=== PATIENT | male | born 1940 | race Caucasian/White ===

== ENCOUNTER 2017-12-15 08:25 | Emergency (ER) | payer MEDICARE, OTHER ==
[~2017-12-15] VITALS: Ht 172.7 cm; Wt 113.0 kg
[~2017-12-15 08:25] MED LIST: ACETAMIN325 MG PO; ACETAMIN500 M1 OR; ALLOPURINOL100 MG OR; ALLOPURINOL100 MG PO; AMLODIPINE10 MG PO; AMLODIPINE5 MG PO; AMMONIUM LACTATE121 EX; ANTI-DIARRHEAL2 M1 PO; ASPIRIN EC81 MG PO; ASPIRIN LOW DOS81 M2 PO; ASPIRIN81 MG OR; BABY ASPIRIN81 MG OR; BISAC-EVAC10 MG RE; BUMETANIDE1 MG PO; BUMETANIDE2 MG PO; CHILD ASA81 MG PO; COREG3.125 MG PO; COUMADIN4 MG OR; COUMADIN4 MG PO; COUMADIN5 MG PO; COUMADIN6 MG PO; COUMADIN7.5 MG PO; CRESTOR10 MG OR; CRESTOR10 MG PO; CRESTOR20 MG PO; DETROL2 MG OR; DIABETA2.5 MG OR; DILANTIN INFATA50 MG OR; DILANTIN100 MG OR; DILANTIN100 MG PO; DIOVAN HCT320 MG/25 OR; DIOVAN320 MG OR; DIOVAN320 MG PO; DIOVAN40 MG PO; DIOVAN80 MG PO; EFFEXOR XR75 MG PO; ENEMA READY-TO-1 ENE RE; ENOXAPARIN100 MG/ML SC; FLUZONE SPLT1 M1 IM; GLIPIZIDE5 MG PO; GLUCOVANC1 PO; GLYB/METFOR1 OR; GLYBURIDE2.5 MG PO; GLYBURIDE5 MG PO; HYDROCHLOROT12.5 MG PO; IMODIUM A-D2 MG PO; JANUVIA50 MG OR; JANUVIA50 MG PO; KEPPRA750 M2 PO; LASIX 40 MG TAB40 MG PO; LASIX 40 MG40 MG/TAB PO; LASIX40 MG PO; LASIX80 MG PO; LEVETIRACETA OR; LEVETIRACETAM500 MG PO; LIPITOR20 M1 PO; LIPITOR20 MG PO; LORTAB 7.5 PO; LOTREL1 CA2 OR; LOTREL1 CA2 PO; MAPAP ARTHRI650 MG PO; METFORMIN HCL1000 MG PO; METFORMIN500 MG PO; MILK OF MAG30 ML/UDC PO; NITROGLYCERIN0.4 MG SL; NITROSTAT0.4 MG SL; NORCO1 TA1 PO; NORVASC10 M1 PO; NORVASC10 MG OR; NOVOLO1 SC; NOVOLOG100 IU/1 M SL; PEPCID20 MG PO; PERCOCET 5/325M1 TAB PO; PHENERGAN25 MG/TAB PO; PHENYTOIN EX100 MG OR; PHENYTOIN EX100 MG PO; PROSTAT PO; Q-TUSSIN100 MG/5 M PO; RESTORIL15 M1 PO; ROWEEPRA750 MG PO; TRAMADOL HCL50 MG PO; TYLENOL325 MG PO; ULTRAM50 MG PO; WARFARIN2 MG PO; WARFARIN2.5 MG PO; WARFARIN4 MG PO; [UNRECOGNIZED DRUG - REMARK] PO
[2017-12-15] MEDS ORDERED: COUMADIN5 MG PO (08:52)
[2017-12-15 09:25] LABS: IMMATURE GRANULOCYTES 0.6 % (0.0-1.0); MEAN CORPUSCULAR HGB 30.6 pG CALC (26.0-32.0); MEAN CORPUSCULAR HGB CONC 32.2 g/L CALC (32.0-36.0); NEUT# 5.61 thou/uL (1.82-7.42); RED BLOOD COUNT 4.83 mill/uL (4.70-6.10); RED CELL DISTRI WIDTH 13.3 % (11.5-15.5)
[2017-12-15 09:29] LABS: HEMOGLOBIN 14.8 g/dl (14.0-18.0); MEAN CELL VOLUME 95.2 fL CALC (80.0-100.0)
[2017-12-15 09:45] LABS: ANION GAP 23 (6-22 (CALC)); BUN 18 mg/dL (8-23); BUN/CREATININE RATIO 16 (12-20 (CALC)); CHLORIDE 108 mmol/l (95-108); CREATININE 1.1 mg/dL (0.7-1.3); GFR > 60 ML/MIN (>=60 (CALC)); GFR FOR AFR.AMER. > 60 ML/MIN (>=60 (CALC)); POTASSIUM 3.7 mmol/l (3.5-5.1); SODIUM 143 mmol/l (137-146)
[2017-12-15 09:55] LABS: CARBON DIOXIDE 16 mmol/l (22-30)
[2017-12-15 10:52] LABS: PROTHROMBIN TIME 11.7 SECONDS (9.0-12.5)
[2017-12-15 11:02] VITALS: BP 144/63
[2017-12-15] MEDS ORDERED: COUMADIN7.5 MG PO (14:43)
[2017-12-15] MEDS ORDERED: FERR SULFATE325 MG PO (14:46)
[2017-12-15] MEDS ORDERED: LOSARTAN POT50 MG PO (14:47)
[2017-12-15] MEDS ORDERED: JANUVIA50 MG PO (14:49)
[2017-12-17] MEDS ORDERED: KEPPRA1000 MG PO (11:05)
== END 2017-12-15 11:22 | disposition home or self-care (01) ==
LOC: ED 08:25
PROVIDERS: Family Medicine
DX: G40.909 Epilepsy, unspecified, not intractable, without status epilepticus (principal); F03.90 Unspecified dementia, unspecified severity, without behavioral disturbance, psychotic disturbance, mood disturbance, and anxiety
CPT/HCPCS: J1953

== ENCOUNTER 2017-12-21 22:36 | Inpatient (IN) | payer MEDICARE, OTHER ==
[~2017-12-21] VITALS: Ht 172.7 cm; Wt 101.6 kg
[~2017-12-21 22:36] MED LIST changes: +FERR SULFATE325 MG PO; +KEPPRA1000 MG PO; +LOSARTAN POT50 MG PO
--- NOTE | 2017-12-21 22:36 | NUR ---
PT TO ROOM 3 BY EMS FOR KNEE PAIN S/P TRIP AND FALL.
--- NOTE | 2017-12-21 23:30 | NUR ---
XRAY DONE AT BEDSIDE, WAITING ON RESULTS.
--- NOTE | 2017-12-21 23:35 | NUR ---
PT MEDICATED WITH TORADOL FOR PAIN BY ELMER PEREZ.
--- NOTE | 2017-12-22 00:14 | NUR ---
IV STARTED AND BLOOD DRAWN, WAITING ON RESULTS.
[2017-12-22 00:33] LABS: HEMATOCRIT 48.8 % (39.0-50.0); HEMOGLOBIN 16.2 g/dl (14.0-18.0); IMMATURE GRANULOCYTES 0.4 % (0.0-1.0); MEAN CELL VOLUME 93.8 fL CALC (80.0-100.0); MEAN CORPUSCULAR HGB 31.2 pG CALC (26.0-32.0); MEAN CORPUSCULAR HGB CONC 33.2 g/L CALC (32.0-36.0); NEUT# 7.98 thou/uL (1.82-7.42); RED BLOOD COUNT 5.2 mill/uL (4.70-6.10); RED CELL DISTRI WIDTH 13.5 % (11.5-15.5)
[2017-12-22 00:49] LABS: ANION GAP 19 (6-22 (CALC)); BILIRUBIN, TOTAL 0.5 mg/dL (0.0-1.4); BUN 26 mg/dL (8-23); BUN/CREATININE RATIO 20 (12-20 (CALC)); CARBON DIOXIDE 26 mmol/l (22-30); CHLORIDE 101 mmol/l (95-108); CREATININE 1.3 mg/dL (0.7-1.3); GFR 53 ML/MIN (>=60 (CALC)); GFR FOR AFR.AMER. > 60 ML/MIN (>=60 (CALC)); POTASSIUM 4.1 mmol/l (3.5-5.1); SGOT/AST 44 u/l (19-48); SGPT/ALT 50 u/l (11-66); SODIUM 142 mmol/l (137-146)
[2017-12-22 00:50] LABS: ALBUMIN 4.6 g/dL (3.2-5.0); ALKALINE PHOSPHATASE 188 u/l (38-126); TOTAL PROTEIN 7.9 g/dL (6.3-8.2)
[2017-12-22 00:59] LABS: PROTHROMBIN TIME 23.2 SECONDS (9.0-12.5)
--- NOTE | 2017-12-22 01:09 | NUR ---
ALL LABS BACK, JUAN IS SEND OUT
--- NOTE | 2017-12-22 01:47 | NUR ---
DR GUERRA CONSULTED. KNEE IMMOBILIZER AND FOLLOW UP IN OFFICE. PT WILL STAY UNTIL AM SINCE THE [facility] WILL NOT BE ABLE TO COME UNTIL AM TO MAGNETIC PROSPECTING SUPERVISOR PT. PT CURRENTLY RESTING QUIETLY WITH LIGHTS OUT AND DOOR OPEN TO MONITOR PT.
[2017-12-22] MEDS ORDERED: LORTAB 1010 MG PO (02:00)
--- NOTE | 2017-12-22 02:30 | NUR ---
REPLACED ICE PACK TO KNEE. STILL SWOLLEN. LEG ELEVATED ON PILLOW.
--- NOTE | 2017-12-22 03:47 | NUR ---
600 CC URINE OUT IN URINAL. PT RESTING QUIETLY ON STRETCHER.
--- NOTE | 2017-12-22 05:00 | NUR ---
CHECKED ON PT STILL RESTING. ANOTHER 600 URINE OUT.
--- NOTE | 2017-12-22 06:30 | NUR ---
MICHAEL IN TO HELP APPLY POSTERIOR SPLINT TO LEFT LEG. SWELLING SLIGHTLY INCREASED BUT NOW ECCHYMOSIS IN CIRCULAR PATTERN AROUND PATELLA. DR CANDELARIO IN FORMED.
--- NOTE | 2017-12-22 06:49 | NUR ---
PT TO BE ADMITTED.
--- NOTE | 2017-12-22 07:14 | NUR ---
REPORT GIVEN TO ELMER CHILEL.
--- NOTE | 2017-12-22 07:40 | NUR ---
PATIENT RESTING WITH EYES CLOSED AWAITING ROOM ASSIGNMENT. PATIENT APPEARS IN NO APPERENT DISTRESS WILL CONTINUE TO MONITOR
--- NOTE | 2017-12-22 08:20 | NUR ---
PT ASSISTED TO SIT UP ON EDGE OF BED; AM MEAL SET UP ASSIST PROVIDED; LEFT LEG SUPPORT PROVIDED FOR BRACE, CALL HANKINS WITHIN REACH
[2017-12-22 09:30] VITALS: BP 142/79
--- NOTE | 2017-12-22 09:30 | NUR ---
PT RESTING ON STRETCHER, ALERT AND ORIENTED, STATES HE FELL IN THE BATHROOM AT THE [facility] WHERE HE RESIDES, STATES IT HAPPENED SO FAST HE ISN'T SURE "HOW IT HAPPENED" BRACE/NIELS WRAP INTACT TO LLE FROM UPPER THIGH TO ANKLE, EDEMA NOTED TO BILATERAL LE, > ON LEFT THAN RIGHT, PPPB; WEAK, SOME ECCHYMOSIS NOTED TO GREAT 2nd & 3rd TOE WITH SMALL ABRASION NOTED TO TIP OF 3rd TOE, SKIN OTHERWISE INTACT, VS STABLE; PT AFEBRILE; STATES PAIN IS TOLERABLE AND DENIES NEED FOR PAIN MEDICATION AT THIS TIME, LUNGS ARE CLEAR AND NO SHORTNESS OF BREATH OR DISTRESS NOTED, ABD SOFT AND BS ACTIVE PT STATES LAST BM YESTERDAY DENIES DIFFICULTY URINATING ADMITS TO FREQUENCY, URINAL AT BEDSIDE VOIDED 200 ML CLEAR YELLOW URINE. ORIENTED TO ROM AND UNIT, CALL HANKINS WITHIN REACH, COMFORT MEASURES PROVIDED, SAFETY MEASURES INTRODUCED, WILL CONTINUE TO MONITOR.
--- NOTE | 2017-12-22 10:40 | NUR ---
DELFINO MAYER CALLED BACK (TRIMMING ASSEMBLER ATTEMPTED TO NOTIFY HER) AWARE OF ER VISIT AND ADMISSION PLANS.
--- NOTE | 2017-12-22 10:41 | NUR ---
COFFEEE PROVIDED PER PT REQUEST, COMFORT MEASURES PROVIDED, PT CONTINUES TO DENY NEED FOR PAIN MEDICATION, ADMITS TO BEING IDDM, WILL CHECK BS, CALL HANKINS WITHIN REACH
--- NOTE | 2017-12-22 10:49 | NUR ---
ACCU CHECK 260, COMFORT MEASURES PROVIDED, WILL NOTIFY MD OF BLOOD SUGAR
--- NOTE | 2017-12-22 11:09 | NUR ---
AWARE OF ACCU CHECK, WILL COTNINUE TO MONITOR.
--- NOTE | 2017-12-22 11:56 | NUR ---
SET UP ASSIST PROVIDED FOR AFTERNOON MEAL, CALL HANKINS REMAINS WITHIN REACH
--- NOTE | 2017-12-22 12:42 | NUR ---
REPORT RECEIVED FROM CATRACHITO ANTHONY ARRIVED ON UNIT @ 1242 VIA STRETCHER AND TRANSFERRED TO BED, LEFT LEG WRAPPED IN NIELS BANDAGE, SMALL TEAR OBSERVED ON 3RD TOE OF LEFT FOOT WITH SWELLING TO FOOT. ORIENTED TO ROOM AND CALL HANKINS, WILL CONTINUE TO MONITOR, CALL HANKINS IN REACH.
[2017-12-22 12:50] VITALS: BP 173/73
[2017-12-22 17:07] VITALS: BP 143/78
[2017-12-22 19:20] VITALS: BP 136/65
--- NOTE | 2017-12-22 19:20 | NUR ---
REPORT RECIEVED; PT RESTING IN BED. PT DENIES PAIN OR DISCOMFORT. PT ENCOURAGED TO CALL FOR ASSISTANCE. SAFETY PRECAUTIONS REINFORCED. FREQUENT ROUNDS MADE. CALL LIGHT WITHIN REACH.
--- NOTE | 2017-12-22 20:20 | NUR ---
PT RESTING IN BED; PT DENIES PAIN. RESP EVEN AND UNLABORED. TELE IN PLACE. ABD SOFT; ACTIVE BOWEL SOUNDS NOTED. NIELS WRAP INTACT LEFT LEG FROM UPPER THIGH TO ANKLE; EDEMA NOTED. EDEMA GREATER IN LEFT FOOT THAN RIGHT. PEDAL PULSES PALPATED BILAT. PT ALERT AND ORIENTED. SEIZURE PRECAUTIONS IN PLACE. SAFETY PRECAUTIONS REINFORCED. PT ENCOURAGED TO CALL FOR ASSISTANCE. WILL MONITOR CLOSELY. IV LAC PATENT; FLUSHED WITHOUT DIFFICULTY. CALL LIGHT WITHIN REACH.
--- NOTE | 2017-12-23 00:15 | NUR ---
RESP EVEN AND UNLABORED; NO DISTRESS NOTED. TELE IN PLACE. LEFT LEG NIELS WRAP INTACT; PEDAL PULSE PALPATED. PT DENIES PAIN. CALL LIGHT WITHIN REACH.
[2017-12-23 01:00] VITALS: BP 152/73
--- NOTE | 2017-12-23 02:40 | NUR ---
ROUNDS MADE PT WOKE; PT STATES " IM NOT IN ANY PAIN." TELE IN PLACE. LEFT LEG NIELS WRAP INTACT. PEDAL PULSES PALPATED BILAT. SAFETY PRECAUTIONS REINFORCED. CALL LIGHT WITHIN REACH.
[2017-12-23 04:20] VITALS: BP 139/75
--- NOTE | 2017-12-23 04:35 | NUR ---
ASSESSMENT UNCHANGED. RESP EVEN AND UNLABORED; NO DISTRESS NOTED. TELE IN PLACE. CALL LIGHT WITHIN REACH.
[2017-12-23 05:23] LABS: IMMATURE GRANULOCYTES 0.2 % (0.0-1.0); MEAN CELL VOLUME 93.5 fL CALC (80.0-100.0); MEAN CORPUSCULAR HGB 30.9 pG CALC (26.0-32.0); NEUT# 5.37 thou/uL (1.82-7.42); RED BLOOD COUNT 4.34 mill/uL (4.70-6.10); RED CELL DISTRI WIDTH 13.3 % (11.5-15.5)
[2017-12-23 05:24] LABS: HEMATOCRIT 40.6 % (39.0-50.0); HEMOGLOBIN 13.4 g/dl (14.0-18.0)
[2017-12-23 05:42] LABS: INTERNATIONAL NORMALIZED RATIO 2.5 RATIO (0.7-1.3); PROTHROMBIN TIME 28.4 SECONDS (9.0-12.5)
[2017-12-23 05:48] LABS: ANION GAP 16 (6-22 (CALC)); BUN 23 mg/dL (8-23); BUN/CREATININE RATIO 20 (12-20 (CALC)); CARBON DIOXIDE 23 mmol/l (22-30); CHLORIDE 106 mmol/l (95-108); CREATININE 1.2 mg/dL (0.7-1.3); GFR 58 ML/MIN (>=60 (CALC)); GFR FOR AFR.AMER. > 60 ML/MIN (>=60 (CALC)); SODIUM 142 mmol/l (137-146)
--- NOTE | 2017-12-23 07:00 | NUR ---
SHIFT CHANGE REPORT, PT SLEEPING, BREATHING EVEN AND NON-LABORED, NO SIGN DISCOMFORT, TELE MONITOR IN PLACE, CALL HANKINS IN REACH.
--- NOTE | 2017-12-23 08:03 | NUR ---
AWAKE AND ALERT AT THIS TIME, C/O ACHING LEFT LEG/FOOT PAIN @ 5/10, WILL ADDRESS CONCERNS JACQUELINE.
[2017-12-23 08:12] VITALS: BP 128/72
[2017-12-23 09:37] LABS: INTERNATIONAL NORMALIZED RATIO 2.5 RATIO (0.7-1.3); PROTHROMBIN TIME 28.4 SECONDS (9.0-12.5)
[2017-12-23 11:00] VITALS: BP 132/79
[2017-12-23 16:00] VITALS: BP 129/74
[2017-12-23 19:15] VITALS: BP 154/75
--- NOTE | 2017-12-23 19:16 | NUR ---
REPORT RECIEVED; PT RESING IN BED, DENIES ANY COMPLAINTS OF PAIN. PT ENCOURAGED TO CALL FOR ASSISTANCE. LEFT LEG NIELS WRAP INTACT; PEDAL PULSES PALPATED BILAT. SAFETY PRECAUTIONS REINFORCED. FREQUENT ROUNDS MADE. CALL LIGHT WITHIN REACH.
--- NOTE | 2017-12-23 21:35 | NUR ---
PT WOKE FOR ASSESSMENT. PT DENIES ANY PAIN. RESP EVEN AND UNLABORED. TELE IN PLACE. ABD SOFT; ACTIVE BOWEL SOUNDS NOTED. NIELS WRAP INTACT LEFT LEG FROM UPPER THIGH TO ANKLE. EDEMA GREATER IN LEFT FOOT THAN RIGHT. PEDAL PULSES PALPATED BILAT. IV LAC PATENT; FLUSHED WITHOUT DIFFICULTY. PT REPOSITIONED FOR COMFORT. SAFETY PRECAUTIONS REINFORCED. WILL MONITOR CLOSELY. CALL LIGHT WITHIHN REACH.
--- NOTE | 2017-12-24 00:10 | NUR ---
RESP EVEN AND UNLABORED; NO DISCOMFORT NOTED. TELE IN PLACE. CALL LIGHT WITHIN REACH.
[2017-12-24 00:53] VITALS: BP 136/71
--- NOTE | 2017-12-24 02:52 | NUR ---
PT REPOSITIONED AT THIS TIME. LEFT LEG NIELS WRAP INTACT; PEDAL PULSES PALPATED BILAT. PT DENIES PAIN. TELE IN PLACE. CALL LIGHT WITHIN REACH. WILL CONTINUE TO MONITOR CLOSELY.
--- NOTE | 2017-12-24 04:01 | NUR ---
RESP EVEN AND UNLABORED; NO DISCOMFORT NOTED. ASSESSMENT UNCHANGED. TELE IN PLACE. CALL LIGHT WITHIN REACH.
[2017-12-24 04:31] VITALS: BP 121/68
[2017-12-24 04:48] LABS: HEMATOCRIT 40.5 % (39.0-50.0); HEMOGLOBIN 13.3 g/dl (14.0-18.0)
[2017-12-24 05:13] LABS: INTERNATIONAL NORMALIZED RATIO 2.7 RATIO (0.7-1.3); PROTHROMBIN TIME 30.8 SECONDS (9.0-12.5)
[2017-12-24 06:25] LABS: ANION GAP 16 (6-22 (CALC)); BUN 23 mg/dL (8-23); BUN/CREATININE RATIO 18 (12-20 (CALC)); CARBON DIOXIDE 25 mmol/l (22-30); CHLORIDE 103 mmol/l (95-108); CREATININE 1.3 mg/dL (0.7-1.3); GFR 53 ML/MIN (>=60 (CALC)); GFR FOR AFR.AMER. > 60 ML/MIN (>=60 (CALC)); MAGNESIUM 1.4 mg/dL (1.6-2.3); POTASSIUM 4.1 mmol/l (3.5-5.1); SODIUM 141 mmol/l (137-146)
--- NOTE | 2017-12-24 07:25 | NUR ---
REPORT RECEIVED FROM RAAD ASTORGA. PT SITTING UPRIGHT IN BED. SEIZURE PRECAUTIONS IN PLACE. FALL PRECAUTIONS REINFORCED. PLAN OF CARE DISCUSSED. REPORTING OF CONCERNS ENCORUAGED. PT DENIES PAIN. CALL LIGHT REVIEWED AND IN REACH. PT STATES UNDERSTANDING.
[2017-12-24 07:47] VITALS: BP 119/69
--- NOTE | 2017-12-24 09:40 | NUR ---
SPOKE WITH AYDEE IN 'S OFFICE AND GAVE INFORMATION WILL SEE IF HE WILL SEE PT THIS PM.
--- NOTE | 2017-12-24 10:52 | NUR ---
SPOKE WITH TANJA FROM DR. GUERRA'S OFFICE. ADIVISED PT IS NON-SURGICAL. KNEE IMMOBILIZER TO LEFT LEG, WBAT W/ IMMOBILIZER. F/U WITH DR. GUERRA ON DISCHARGE.
--- NOTE | 2017-12-24 12:15 | NUR ---
PT REPORTS SEVERE LEFT KNEE PAIN. MEDICATED WITH LORTAB PO. PT NOW REPORTS PAIN MUCH RELIEVED BY MEDICATION. IMMOBILIZER AT BEDSIDE FOR LEFT KNEE. PT WISHES TO WAIT FOR PHYSICAL THERAPY TO APPLY.
--- NOTE | 2017-12-24 14:18 | NUR ---
LUIS MIGUEL, PT AT BEDSIDE.
[2017-12-24 15:00] VITALS: BP 105/64
--- NOTE | 2017-12-24 15:54 | NUR ---
PT ASSISTED BACK TO BED FROM CHAIR. KNEE IMMOBILIZER IN PLACE. WALKER USED FOR ASSISTANCE. PT TOLERATED ACTIVITY WELL.
[2017-12-24] MEDS ORDERED: LORTAB 1010 MG PO (17:43)
[2017-12-24 19:20] VITALS: BP 118/62
--- NOTE | 2017-12-24 19:20 | NUR ---
REPORT RECIEVED; PT RESTING IN SEMI-FOWLERS POSITON. KNEE IMMOBILIZER IN PLACE; PEDAL PULSES PALPATED BILAT. PT DENIES PAIN OR DISCOMFORT. TELE IN PLACE. PT ENCOURAGED TO CALL FOR ASSISTANCE. FREQUENT ROUNDS MADE; WILL MONITOR CLOSELY. CALL LIGHT WITHIN REACH.
--- NOTE | 2017-12-24 21:30 | NUR ---
PT WOKE FOR ASSESSMENT. RESP EVEN AND UNLABORED. TELE IN PLACE. ABD SOFT; ACTIVE BOWEL SOUNDS NOTED. LEFT KNEE IMMOBILIZER IN PLACE. PEDAL PULSES PALPATED BILAT. EDEMA NOTED. IV LAC PATENT; FLUSHED WITHOUT DIFFICULTY. PT ENCORUAGED TO CALL FOR ASSISTANCE. SAFETY PRECAUTIONS REINFORCED. PT DENIES PAIN; PT REPOSITIONED FOR COMFORT. CALL LIGHT WITHIN REACH.
--- NOTE | 2017-12-25 00:10 | NUR ---
PT DENIES PAIN; PT WANTS KNEE IMMOBILIZER OFF FOR SLEEP. NIELS WRAP INTACT. PEDAL PULSES PALPATED BILAT. PT ENCORUAGED TO CALL FOR ASSISTANCE. SAFETY PRECAUTIONS REINFORCED. CALL LIGHT WITHIN REACH.
[2017-12-25 00:18] VITALS: BP 133/60
--- NOTE | 2017-12-25 04:15 | NUR ---
ASSESSMENT UNCHANGED. TELE IN PLACE. RESP EVEN AND UNLABORED; NO DISCOMFORT NOTED. CALL LIGHT WITHIN REACH.
[2017-12-25 05:04] LABS: HEMATOCRIT 40.9 % (39.0-50.0); HEMOGLOBIN 13.6 g/dl (14.0-18.0); MEAN CELL VOLUME 93.2 fL CALC (80.0-100.0); MEAN CORPUSCULAR HGB CONC 33.3 g/L CALC (32.0-36.0); RED BLOOD COUNT 4.39 mill/uL (4.70-6.10); RED CELL DISTRI WIDTH 13.2 % (11.5-15.5)
[2017-12-25 05:08] LABS: ANION GAP 17 (6-22 (CALC)); BUN 25 mg/dL (8-23); BUN/CREATININE RATIO 19 (12-20 (CALC)); CARBON DIOXIDE 25 mmol/l (22-30); CHLORIDE 101 mmol/l (95-108); CREATININE 1.3 mg/dL (0.7-1.3); GFR 53 ML/MIN (>=60 (CALC)); GFR FOR AFR.AMER. > 60 ML/MIN (>=60 (CALC)); SODIUM 138 mmol/l (137-146)
[2017-12-25 05:10] LABS: INTERNATIONAL NORMALIZED RATIO 2.7 RATIO (0.7-1.3); PROTHROMBIN TIME 31.1 SECONDS (9.0-12.5)
[2017-12-25 05:17] VITALS: BP 126/67
--- NOTE | 2017-12-25 07:18 | NUR ---
BEDSIDE REPORT RECEIVED FROM RAAD ASTORGA. PT SUPINE IN BED. DENIES PAIN. REPORTING OF CONCERNS ENCOURAGED. PLAN OF CARE DISCUSSED. FALL PRECAUTIONS REINFORCED. KNEE IMMOBILIZER OFF AT THIS TIME FOR COMFORT WHILE IN BED. PT REMINDED IMMOBILIZER MUST BE IN PLACE FOR OOB ACTIVITY. PT STATES UNDERSTANDING.
[2017-12-25 08:00] VITALS: BP 117/57
--- NOTE | 2017-12-25 08:52 | NUR ---
PT WAS SEEN RESTING IN THE BED. TRANSFERRED FROM SUPINE TO SHORT SITTING ON BED WITH MODIFIED INDEPENDENCE UTILIZING B UE TO PULL SELF UP. PT STOOD UP FROM SITTING WITH VERBAL CUES ON HAND PLACEMENT AND PROPER USE OF WALKER IN STANDING POSITION. PT THEN WALKED ~5 STEPS FROM BED TO RECLINER WITH ROLLING WALKER, CGA AND KNEE IMMOBILIZER. PT FOLLOWED WBAT RESTRICTION ON L LE. PT THEN SAT DOWN WITH VERBAL CUES. LEG REST WAS ELEVATED FOR PT'S COMFORT. PT HAD MINIMAL SOB AT THE END OF ACTIVITY, STATED THAT IT WAS HIS FIRST TIME TO TRANSFER FROM BED TO RECLINER WITH RW HE WAS USED TO GETTING AROUND THE HOUSE WITH A WHEELCHAIR. LEFT PT WITH CALL HANKINS BESIDE HIM. FALL PRECAUTION WAS REINFORCED. NO ADVERSE RXNS NOTED OR REPORTED AT THE END OF TX.
--- NOTE | 2017-12-25 08:55 | NUR ---
UP TO CHAIR WITH PHYSICAL THERAPY. KNEE IMMOBILIZER TO LEFT LEG AT ORDERED.
[2017-12-25 11:18] VITALS: BP 130/77
--- NOTE | 2017-12-25 12:24 | NUR ---
DR. ADLER IN TO SEE PT.
[2017-12-25 15:21] VITALS: BP 108/69
--- NOTE | 2017-12-25 16:54 | NUR ---
PT SLEEPING AT THIS TIME. CALL LIGHT WITHIN REACH.
[2017-12-25 19:10] VITALS: BP 122/69
--- NOTE | 2017-12-25 22:01 | NUR ---
PT.IS IN BED W/LIGHTS OFF AND TV ON. PT.ASSESSED, LUNG SOUNDS ARE CLEAR, REPORTS BM TODAY, ABD IS SOFT AND NON-TENDER. PT.MEDICATED ORDERS PROVIDE. DENIES ANY OTHER NEEDS AT THIS TIME. CALL LIGHT IS W/IN REACH AND PT.ENCOURAGED TO CALL IF ANY NEEDS ARISE.
[2017-12-26 00:18] VITALS: BP 124/71
--- NOTE | 2017-12-26 00:40 | NUR ---
PT.MEDICATED AND V/S ASSESSED, CALL LIGHT IS W/IN REACH AND PT.DENIES ANY OTHER NEEDS AT THIS TIME, CALL LIGHT IS W/IN REACH, TV ON LOW, LIGHTS OFF
--- NOTE | 2017-12-26 04:00 | NUR ---
PT.APPEARS TO BE SLEEPING AT THIS TIME, V/S ASSESSED AND URINAL EMPTIED OF 275 CLEAR DARK YELLOW URINE. CALL LIGHT IS W/IN REACH, PT.DENIES ANY NEEDS AT THIS TIME. ENCOURAGED TO CALL IF ANY NEEDS ARISE.
[2017-12-26 04:33] VITALS: BP 134/70
[2017-12-26 04:57] LABS: HEMATOCRIT 40.3 % (39.0-50.0); HEMOGLOBIN 13.2 g/dl (14.0-18.0)
[2017-12-26 05:15] LABS: INTERNATIONAL NORMALIZED RATIO 2.7 RATIO (0.7-1.3); PROTHROMBIN TIME 30.8 SECONDS (9.0-12.5)
[2017-12-26 05:24] LABS: ANION GAP 18 (6-22 (CALC)); BUN 29 mg/dL (8-23); BUN/CREATININE RATIO 23 (12-20 (CALC)); CARBON DIOXIDE 22 mmol/l (22-30); CHLORIDE 103 mmol/l (95-108); CREATININE 1.3 mg/dL (0.7-1.3); GFR 53 ML/MIN (>=60 (CALC)); GFR FOR AFR.AMER. > 60 ML/MIN (>=60 (CALC)); POTASSIUM 4.3 mmol/l (3.5-5.1); SODIUM 139 mmol/l (137-146)
[2017-12-26 05:33] LABS: MAGNESIUM 1.9 mg/dL (1.6-2.3)
--- NOTE | 2017-12-26 07:00 | NUR ---
RECEIVED MADY SWEENEY FROM MAGO PAYNE. RESTING IN SUPINE POSITION WATCHING TV. RESPS EVEN AND UNLABORED ON ROOM AIR, TELE MONITOR IN PLACE. IMMOBILIZER IN PLACE TO LEFT LOWER EXTREMITY. DENIES PAIN OR DISCOMFORT. PLAN OF CARE DISCUSSED. SAFETY PRECAUTIONS REINFORCED. SEIZURE PRECAUTIONS IN PLACE. BED IN LOWEST POSITION WITH WHEELS LOCKED. CALL LIGHT WITHIN REACH. ENCOURAGED PT TO CALL FOR ANY NEEDS.
[2017-12-26 08:10] VITALS: BP 131/80
--- NOTE | 2017-12-26 08:15 | NUR ---
PHYSICAL THERAPY IN WITH PT.
--- NOTE | 2017-12-26 09:49 | NUR ---
Pt seen this am for ther ex and gait training. He was cooperative with treatment. Pt splint adjusted, had slid down during the night. LLE quad set, hip IR/ER, glut sets performed with splint in place. Pt moved supine to sit with supervision, min assist to scoot. He ambulated 1x20' with RW, WBAT on L with CGA and verbal cues for gait patterned and safety. Pt reported to be too tried and did not want to walk again. Returned to bed and positioned properly with call clement and phone in place. Pt ambulated with non skid socks and belt in place.
[2017-12-26 11:00] VITALS: BP 147/67
--- NOTE | 2017-12-26 11:40 | NUR ---
MEDICATED WITH LORTAB PO C/O 04/16 LEFT KNEE PAIN.
--- NOTE | 2017-12-26 12:22 | NUR ---
IV site discontinued, cath intact. No edema , no redness, voices no discomfort.
--- NOTE | 2017-12-26 12:36 | NUR ---
Discharge instructions given. Patient verbalizes understanding of same. Discharged in stable condition via Wheelchair to *Other with *Other. All belongings sent with pt. TO [facility]
--- NOTE | 2017-12-26 13:03 | NUR ---
NURSE TO NURSE REPORT CALLED TO [facility]
== END 2017-12-26 12:35 | DRG 563 ==
LOC: ED 22:36 → ED-I 12-22 06:35 → ED 12-22 06:48 → MS2 12-22 06:49 → ED-I 12-22 06:49 → MS2 12-22 11:56
PROVIDERS: Emergency Medicine; Internal Medicine; Nurse Practitioner Family; ADMIT Internal Medicine; ATTEND Internal Medicine
DX: S82.032A Displaced transverse fracture of left patella, initial encounter for closed fracture (principal); E11.22 Type 2 diabetes mellitus with diabetic chronic kidney disease; G40.909 Epilepsy, unspecified, not intractable, without status epilepticus; N18.3 Chronic kidney disease, stage 3 (moderate); I48.2 Chronic atrial fibrillation; I12.9 Hypertensive chronic kidney disease with stage 1 through stage 4 chronic kidney disease, or unspecified chronic kidney disease; E83.42 Hypomagnesemia; S80.212A Abrasion, left knee, initial encounter; S90.112A Contusion of left great toe without damage to nail, initial encounter; S90.122A Contusion of left lesser toe(s) without damage to nail, initial encounter; I49.8 Other specified cardiac arrhythmias; W18.11XA Fall from or off toilet without subsequent striking against object, initial encounter; Y92.091 Bathroom in other non-institutional residence as the place of occurrence of the external cause; Z79.01 Long term (current) use of anticoagulants
CPT/HCPCS: J3475

== ENCOUNTER 2019-09-15 07:19 | Inpatient (IN) | payer MEDICARE, OTHER ==
[~2019-09-15] VITALS: Ht 175.3 cm; Wt 99.8 kg
[~2019-09-15 07:19] MED LIST changes: +LORTAB 1010 MG PO
--- NOTE | 2019-09-15 07:25 | NUR ---
PT TO ROOM VIA EMS
[2019-09-15] MEDS ORDERED: ROWEEPRA1000 MG PO (07:47)
[2019-09-15] MEDS ORDERED: LEVEMIR100 UNIT/M SC (07:48)
[2019-09-15] MEDS ORDERED: TRADJENTA5 MG PO (07:48)
[2019-09-15] MEDS ORDERED: TRAZODONE50 MG PO (07:49)
[2019-09-15] MEDS ORDERED: DOXYCYC MONO100 M2 PO (07:49)
[2019-09-15] MEDS ORDERED: IPRATROPIU0.5 MG/3 M IN (07:50)
[2019-09-15 07:52] LABS: HEMATOCRIT 42.2 % (39.0-50.0); HEMOGLOBIN 13.5 g/dl (14.0-18.0); IMMATURE GRANULOCYTES 0.7 % (0.0-5.0); MEAN CELL VOLUME 88.7 fL CALC (80.0-100.0); MEAN CORPUSCULAR HGB 28.4 pG CALC (26.0-32.0); NEUT# 7.46 thou/uL (1.82-7.42); RED BLOOD COUNT 4.76 mill/uL (4.70-6.10); RED CELL DISTRI WIDTH 16.2 % (11.5-15.5)
[2019-09-15] MEDS ORDERED: NOVOLOG FL100 UNIT/M SC (07:53)
[2019-09-15] MEDS ORDERED: GABAPENTIN100 MG PO (07:54)
[2019-09-15] MEDS ORDERED: PREDNISONE10 MG PO (07:56)
--- NOTE | 2019-09-15 08:08 | NUR ---
PT ALERT/ORIENTED, STATES HAS BEEN COUGHING UP GREENISH/YELLOW PHLEGM. HAS BEEN ON DOXYCLCLINE FOR LAST WEEK WITH PREDNISONE. SENT FOR EVALUATION OF TEMPERATURE AND LOW OXYGEN. TEMP WAS 102.3 AT REHAB WAS GIVEN TYLENOL AROUND 6
--- NOTE | 2019-09-15 08:34 | NUR ---
PT RESTING QUIETLY AT THIS TIME, STATES FEELS MUCH BETTER AFTER NEB TREATMENT.
[2019-09-15 08:42] LABS: D-DIMER 0.86 mg/L (0.19-0.60)
[2019-09-15 08:43] LABS: PROTHROMBIN TIME 14.7 SECONDS (9.0-12.5)
[2019-09-15 08:44] LABS: ACT PARTIAL THROMBO TIME 34.7 SECONDS (20.0-32.5); INTERNATIONAL NORMALIZED RATIO 1.4 RATIO (0.7-1.3)
[2019-09-15 09:16] LABS: BILIRUBIN, TOTAL 0.6 mg/dL (0.0-1.4); CREATININE 1.4 mg/dL (0.7-1.3); POTASSIUM 4.7 mmol/l (3.5-5.1); TOTAL PROTEIN 6.9 g/dL (6.3-8.2)
[2019-09-15 09:17] LABS: ALBUMIN 3.5 g/dL (3.2-5.0)
--- NOTE | 2019-09-15 10:08 | NUR ---
REPORT CALLED TO [facility] FOR CONTINUATION OF CARE
[2019-09-15 10:26] VITALS: BP 114/68
--- NOTE | 2019-09-15 10:28 | NUR ---
PT TAKEN TO FLOOR WITH FLU PRECAUTIONS IN PLACE AND TELEMENTRY
[2019-09-15 10:31] LABS: URINE BILIRUBIN - DIPSTICK NEGATIVE (NEGATIVE); URINE BLOOD DIPSTICK TRACE-INTACT (NEGATIVE); URINE COLOR YELLOW; URINE GLUCOSE - DIPSTICK NEGATIVE (NEGATIVE); URINE KETONE NEGATIVE (NEGATIVE); URINE LEUK ESTERASE TRACE (NEGATIVE); URINE NITRITE - DIPSTICK NEGATIVE (Negative); URINE PROTEIN - DIPSTICK TRACE mg/dL (NEG-TRACE); URINE SPECIFIC GRAVITY 1.015
--- NOTE | 2019-09-15 10:58 | NUR ---
PT HAD COME FROM ER VIA STRETCHER BY MICHAEL. PT HAD TO BE TRANSFER FROM STREHER TO BED. ASSESSMENT DONE. TELE IN PLACE. PT IS A&O X3 BUT FORGETFUL AT TIMES. PT DENIES PAIN AT THIS TIME. MEDICATED PT WITH TYLENOL FOR TEMP 100.4. LUNGS SOUND COARSE/WHEEZES. O2 AT 2L VIA NC. SAFETY PRECAUTIONS REINFORCED AND CALL LIGHT IN REACH.
--- NOTE | 2019-09-15 12:42 | NUR ---
AT BEDSIDE DISCUSSING POC WITH PATIENT.
--- NOTE | 2019-09-15 12:50 | NUR ---
REPORT RECEIVED FROM ELMER NEVILLE;PT APPEARS TO BE SLEEPING IN SEMI FOWLERS POSITION;RESPIRATIONS SHALLOW ON O2 @ 2L VIA NC;NO S/S OF DISTRESS NOTED;TELE MONITORING IN PLACE;IV ABX INFUSING WITH EASE TO RFA;ALL SAFETY PRECAUTIONS IN PLACE WITH BED IN THE LOWEST POSITION AND CALL LIGHT IN REACH;WILL CONTINUE TO MONITOR
--- NOTE | 2019-09-15 13:40 | NUR ---
Vancomycin consult Age: 79 yo Serum creatinine: 1.4 mg/dL Height: 69.0 Inches Weight (kg): 108.4 IBW (kg): 70.70 Dosing wt(kg): 108.4 Estimated Creatinine clearance (ml/min): 41.4 Vd (liters): 75.9 (factor used: 0.7 L/kg) Paras (hr-1): 0.039 Half life (hrs): 17.77 Vancomycin 1500 mg q 24 hrs with an expected Cpeak of 31 mcg/ml and an expected Ctrough of 15 mcg/ml starting at 1500. trough on 09/18/19 at 1430
[2019-09-15 15:00] VITALS: BP 140/61
--- NOTE | 2019-09-15 15:55 | NUR ---
PT RESTING IN SEMI FOWLERS POSITION;RESPIRATIONS EVEN AND UNLABORED ON O2 @ 2L VIA NC;PT DENIES ANY CURRENT PAIN OR DISCOMFORTS;IV ABX ADMINISTERED AT THIS TIME PER ORDER;TELE MONITORING IN PLACE;PT DENIES ANY ADDITIONAL NEEDS AT THIS TIME;SEIZURE,FALL AND CONTACT PRECAUTIONS REMAIN IN PLACE;ENCOURAGED TO CALL FOR ASSISTANCE IF NEEDED;CALL LIGHT IN REACH;WILL CONTINUE TO MONITOR
[2019-09-15 18:58] VITALS: BP 134/65
--- NOTE | 2019-09-15 20:18 | NUR ---
AWAKENED FOR ASSESSMENT; COMPLETED AT THIS TIME; IV SITE PATENT AND SL. TELEMETRY IN PLACE AND TEDS IN PLACE TO BLE. O2 INFUSING PER NC PER ORDER. PT. ABLE TO REPOSITION IN BED. UPDATED ON POC. REPORTS PRODUCTIVE COUGH; NONE TO INSPECT AT THIS TIME. RE-EDUCATED TRAM INSPECTOR LIGHT USE AND VERBALIZES UNDERSTANDING. ENCOURAGED TO CALL FOR ANY NEEDS. CALL LIGHT IS IN REACH. SCHED MEDS GIVEN AND SNACK PROVIDED. WILL CONTINUE TO MONITOR.
--- NOTE | 2019-09-15 22:02 | NUR ---
SCHED MED GIVEN. URINAL EMPTIED. PT. SLEEPING. CALL LIGHT IS IN REACH.
--- NOTE | 2019-09-15 23:45 | NUR ---
SCHED KATT ROMO. PT. DROWSY BUT AROUSES TO VERBAL STIMULI. DENIES NEEDS. CALL LIGHT IS IN REACH.
[2019-09-15 23:50] VITALS: BP 147/64
[2019-09-16 04:08] VITALS: BP 134/75
--- NOTE | 2019-09-16 05:20 | NUR ---
PT. RESTING IN BED WITH LABORED BREATHING. LS REMAIN COARSE. O2 INFUSING PER NC PER ORDER. SCHED MEDS GIVEN. DENIES NEEDS/PAIN. CALL LIGHT IS IN REACH.
--- NOTE | 2019-09-16 07:15 | NUR ---
REPORT RECEIVED FROM ELMER HALEY;PT APPEARS TO BE SLEEPING IN SEMI FOWLERS POSITION;NO S/S OF DISTRESS NOTED;RESPIRATIONS EVEN AND UNLABORED,SHALLOW ON O2 @ 2L VIA NC;ALL SAFETY PRECAUTIONS NOTED WITH BED IN THE LOWEST POSITION AND SEIZURE PRECAUTIONS IN PLACE;CALL LIGHT IN REACH;WILL CONTINUE TO MONITOR
--- NOTE | 2019-09-16 07:50 | NUR ---
PT RESTING IN SEMI FOWLERS POSITION,A&O X3;VS OBTAINED AND ASSESSMENT COMPLETED,BP ELEVATED 175/90 AND ALL MORNING MEDICATIONS TO BE ADMINISTERED;PT DENIES ANY CURRENT PAIN OR DISCOMFORTS,PAIN SCALE AND REPORTING EDUCATED;RESPIRATIONS SHALLOW ON O2 @ 2L VIA NC;NON-PRODUCTIVE COUGH AT TIMES;ABDOMEN DISTENDED/SOFT ON PALPATION AND ACTIVE IN ALL 4 QUADRANTS;WEAK PEDAL PULSES WITH +1 EDEMA NOTED TO BLE;#22G TO RFA FLUSHED AND PATENT,SITE APPEARS HEALTHY;SEIZURE PRECAUTIONS IN PLACE;ACCUCHECK 249, PT COVERED WITH SLIDING SCALE NOVOLOG PER ORDER;PT DENIES ANY ADDITIONAL NEEDS AT THIS TIME AND IS ENCOURAGED TO CALL FOR ASSISTANCE IF NEEDED;FALL PRECAUTIONS IN PLACE WITH CALL LIGHT IN REACH;WILL CONTINUE TO MONITOR
[2019-09-16 07:56] VITALS: BP 175/90
[2019-09-16 10:05] VITALS: BP 119/69
--- NOTE | 2019-09-16 10:10 | NUR ---
PHYSICAL THERAPY AT BEDSIDE WORKING WITH PATEINT.
[2019-09-16 10:15] VITALS: BP 119/69
--- NOTE | 2019-09-16 10:15 | NUR ---
BP RE-CHECK 119/69 HR 60.
--- NOTE | 2019-09-16 11:54 | NUR ---
PT OOB RESTING IN RECLINER;RESPIRATIONS EVEN AND UNLABORED ON O2 @ 2L VIA NC;PT DENIES ANY CURRENT PAIN OR NEEDS;TELE MONITORING IN PLACE;IV ABX HUNG AT THIS TIME;PT ENCOURAGED TO CALL FOR ASSISTANCE IF NEEDED;FALL PRECAUTIONS IN PLACE WITH CALL LIGHT IN REACH;WILL CONTINUE TO MONITOR
[2019-09-16 15:57] VITALS: BP 128/57
--- NOTE | 2019-09-16 17:45 | NUR ---
PT APPEARS TO BE SLEEPING IN SEMI FOWLERS POSITION,WAKES EASILY TO VERBAL STIMULI;RESPIRATIONS EVEN AND UNLABORED ON O2 @ 2L VIA NC;PT DENIES ANY CURRENT PAIN OR DISCOMFORTS;TELE MONITORING IN PLACE;IV ABX INFUSING TO RFA WITH EASE;ACCUCHECK 298, PT COVERED WITH SLIDING SCALE NOVOLOG PER ORDER;PT DENIES ANY ADDITIONAL NEEDS AND IS ENCOURAGED TO CALL FOR ASSISTANCE IF NEEDED;CALL LIGHT IN REACH;WILL CONTINUE TO MONITOR
[2019-09-16 18:48] VITALS: BP 125/58
--- NOTE | 2019-09-16 19:49 | NUR ---
ASSESSMENT COMPLETED. PT. WITH MOIST COUGH. ON O2 @2LITERS/MIN PER NC. ENCOURAGED TO DEEP BREATHE. CALLED RT FOR I/S; WILL EDUCATE WHEN I/S IS AVAILABLE. PO FLUIDS OFFERED. PT. CLEANED OF A SMALL BM AND INCONTINENCE OF URINE, JULISSA CARE PROVIDED. PT. PULLED UP IN BED INTO HIGH FOWLERS. CALL LIGHT IS IN REACH. WILL CONTINUE TO MONITOR.
--- NOTE | 2019-09-16 21:39 | NUR ---
INCENTIVE SPIROMETER GIVEN TO PT. AND EDUCATION GIVE. PT. GAVE RETURN DEMONSTRATION AND PULLED 1500; GOAL SET TO 2000. ENCOURAGED DEEP BREATHING. SCHED MEDS GIVEN. URINAL EMPTIED.
--- NOTE | 2019-09-16 23:35 | NUR ---
SCHEDULED KATT ROMO. DENIES NEEDS. VOICES NO CONCERNS. URINAL EMPTIED. CALL LIGHT IS IN REACH.
[2019-09-17] VITALS (7 sets, daily range): BP systolic 132–159; BP diastolic 67–77
--- NOTE | 2019-09-17 02:30 | NUR ---
RESTING IN BED WITH NO DISTRESS NOTED; DENIES NEEDS/PAIN. CALL LIGHT IS IN REACH.
--- NOTE | 2019-09-17 05:19 | NUR ---
SCHED MEDS GIVEN. DENIES NEEDS AND VOICES NO CONCERNS. URINAL EMPTIED. CALL LIGHT IS IN REACH.
[2019-09-17 05:22] LABS: INTERNATIONAL NORMALIZED RATIO 1.7 RATIO (0.7-1.3); PROTHROMBIN TIME 17.3 SECONDS (9.0-12.5)
--- NOTE | 2019-09-17 06:05 | NUR ---
IV SITE FLUSHED AND SLIGHT SWELLING NOTED,IV SITE REMOVED AND CATHETER INTACT. NEW IV STARTED TO RIGHT HAND X2 ATTEMPT. PT. TOLERATED WELL.
--- NOTE | 2019-09-17 07:10 | NUR ---
REPORT RECEIVED FROM ELMER HALEY;PT APPEARS TO BE SLEEPING IN SEMI FOWLERS POSITION;NO S/S OF DISTRESS NOTED;RESPIRATIONS EVEN AND UNLABORED ON O2 @ 2L VIA NC;SEIZURE AND FALL PRECAUTIONS IN PLACE WITH BED IN THE LOWEST POSITION AND CALL LIGHT IN REACH;WILL CONTINUE TO MONITOR
--- NOTE | 2019-09-17 07:55 | NUR ---
PT RESTING IN SEMI FOWLERS POSITION,A&O X3;VS OBTAINED AND ASSESSMENT COMPLETED;PT DENIES ANY CURRENT PAIN OR DISCOMFORTS,PAIN SCALE AND REPORTING EDUCATED;RESPIRATIONS EVEN AND UNLABORED ON O2 @ 2L VIA NC, WHEEZY/COARSE LUNG SOUNDS;PRODUCTIVE COUGH NOTED AT TIMES;ABDOMEN SOFT ON PALPATION AND ACTIVE IN ALL 4 QUADRANTS;WEAK PEDAL PULSES;TELE MONITORING IN PLACE;#22G TO RIGHT HAND FLUSHED AND PATENT,SITE APPEARS HEALTHY;ACCUCHECK 296, PT COVERED WITH SLIDING SCALE NOVOLOG PER ORDER;PT DENIES ANY ADDITIONAL NEEDS AT THIS TIME AND IS ENCOURAGED TO CALL FOR ASSISTANCE IF NEEDED;FALL,SEIZURE AND DROPLET PRECAUTIONS IN PLACE;CALL LIGHT IN REACH;WILL CONTINUE TO MONITOR
--- NOTE | 2019-09-17 11:41 | NUR ---
PT WAS SEEN FOR FA. MODIFIED INDEP ON SUPINE<>SIT WITH VCS. STS X 10 REPS WITH CGA. ATTEMPTED TO PERFORM MARCHES IN PLACE BUT HE WAS UNABLE TO. HE THEN PERFORMED THEREX SUCH AROM OF B UE AND LE AND SAQ BILATERALLY. PT STATES HE HAS BEEN CHAIRFAST FOR A LONG TIME, HOWEVER, HIS LE ROM AND STRENGTH IS INDICATIVE THAT HE CAN BE RETRAINED TO BE ABLE TO AMBULATE AGAIN AT LEAST ON BEDSIDE OR BED<>BATHROOM WITH RW. [facility] SCORE TODAY:14 POINTS PT WILL BENEFIT FROM IRF FOR FUNCTIONAL AND GAIT TRAINING
--- NOTE | 2019-09-17 11:55 | NUR ---
PT RESTING IN SEMI FOWLERS POSITION;RESPIRATIONS EVEN AND UNLABORED,SHALLOW ON O2 @ 2L VIA NC;PT DENIES ANY CURRENT PAIN OR DISCOMFORTS;TELE MONITORING IN PLACE;IV ABX HUNG AT THIS TIME;PT DENIES ANY ADDITIONAL NEEDS AND IS ENCOURAGED TO CALL FOR ASSISTANCE IF NEEDED;CALL LIGHT IN REACH;WILL CONTINUE TO MONITOR
--- NOTE | 2019-09-17 15:00 | NUR ---
PT APPEARS TO BE SLEEPING IN SEMI FOWLERS POSITION;RESPIRATIONS EVEN AND UNLABORED ON O2 @ 2L VIA NC;NO S/S OF DISTRESS NOTED;ASSESSMENT REMAINS UNCHANGED AT THIS TIME;ALL SAFETY PRECAUTIONS IN PLACE WITH BED IN THE LOWEST POSITION AND CALL LIGHT IN REACH;WILL CONTINUE TO MONITOR
--- NOTE | 2019-09-17 19:05 | NUR ---
REPORT FROM [place] SHANKAR. PT SITTING UP IN BED. ALERT AND ORIENTED. NO APPARENT DISTRESS NOTED. SEIZURE PRECAUTIONS. PT REMAINS ON DROPLET PRECAUTIONS. REAL ESTATE LOAN PROCESSOR IN PLACE. IV SITE APPEARS HEALTHY. DISCUSSED POC. PT VERBALIZED UNDERSTANDING. CALL LIGHT WITHIN REACH. WILL CONTINUE TO MONITOR.
--- NOTE | 2019-09-17 23:20 | NUR ---
PT RESTING IN BED WITH EYES CLOSED. NO APPARENT DISTRESS NOTED. CALL LIGHT WITHIN REACH. WILL CONTINUE TO MONITOR.
--- NOTE | 2019-09-18 03:22 | NUR ---
PT RESTING IN BED WITH EYES CLOSED. NO APPARENT DISTRESS NOTED. RESPIRATIONS EVEN AND UNLABORED. PT STILL SOUNDS CONGESTED. DENIES ANY PAIN OR DISCOMFORT. CALL LIGHT WITHIN REACH. WILL CONTINUE TO MONITOR.
[2019-09-18 03:50] VITALS: BP 140/67
[2019-09-18 05:31] LABS: INTERNATIONAL NORMALIZED RATIO 2.3 RATIO (0.7-1.3); PROTHROMBIN TIME 22.7 SECONDS (9.0-12.5)
[2019-09-18 08:00] VITALS: BP 142/72
--- NOTE | 2019-09-18 08:00 | NUR ---
PT SEEN AWAKE, UP IN CHAIR AT BEDSIDE, ORIENTED TO SELF ONLY. LUNGS ARE COARSE, 2 LPM NC. COARSE LUNGS SOUNDS, NO SHORTNESS OF BREATH NOTED. DROPLET PRECAUTIONS PER POSITIVE INFLUENZA A.
[2019-09-18 09:00] LABS: CREATININE 1.4 mg/dL (0.7-1.3); POTASSIUM 5.1 mmol/l (3.5-5.1)
[2019-09-18 11:23] VITALS: BP 133/78
--- NOTE | 2019-09-18 12:00 | NUR ---
NO CHANGE IN STATUS, PT NOW IN BED AT REST WITH EYES CLOSED. NO ATTEMPTS TO GET OOB.
--- NOTE | 2019-09-18 12:16 | NUR ---
PT WAS SITTING IN THE RECLINER WITH O2 VIA NASAL CANNULA AT 2L, INITIAL O2 WAS 95%. SIT>STAND WITH MODIFIED INDEPENDENCE PUSHING HIMSELF UP. PT THEN TOLARATED STATIC STANDING >1 MINUTE, INSTRUCTED TO PERFORM WT SHIFTING PRIOR TO AMB. THEN, HE AMBULATED IN THE ROOM WITH RW AND CGA, ALSO PROVIDED VERBAL CUES ON PROPER GAIT AND WALKER HANDLING. HE SUCCESSFULLY AMB ~15 FT IN HIS ROOM W/ RW AND CGA. PT THEN SAT DOWN IN THE RECLINER AT THE END OF ACTIVITY, EXPRESSED HIS SURPRISE OF BEING ABLE TO WALK AFTER YEARS OF NOT ATTEMPTING TO. MR. DICKINSON SHOWED [facility] PROGNOSIS AND WILL BENEFIT FROM IN-PT REHAB FOR CONTINUED CONDITIONING, BALANCE AND GAIT TRAINING WITH RW. HIS [facility] TODAY: 15 POINTS
[2019-09-18 16:00] VITALS: BP 170/79
--- NOTE | 2019-09-18 16:00 | NUR ---
PT AT REST IN THE BED, CALLS FOR NEEDS. PT SEEN BY DR ADLER, WILL RETURN PT TO [facility] TOMORROW.
--- NOTE | 2019-09-18 17:18 | NUR ---
NEB TX FOLLOWED WITH CPT VIA PERCUSSOR.
--- NOTE | 2019-09-18 19:15 | NUR ---
REPORT FROM YOLI PAYNE. PT SITTING UP IN BED. ALERT AND ORIENTED. NO APPARENT DISTRESS NOTED. CONGESTION IMPROVING. DENIES ANY PAIN OR DISCOMFORT. IV SITE APPEARS HEALTHY. O2 @2L/M VIA NC. IN CLASSROOM TUTOR IN PLACE. DISCUSSED POC. PT VERBALIZED UNDERSTANDING. CALL LIGHT WITHIN REACH. WILL CONTINUE TO MONITOR.
[2019-09-18 19:20] VITALS: BP 151/84
--- NOTE | 2019-09-18 20:49 | NUR ---
PT MEDICATED ORDERED. SNACK PROVIDED AT THIS TIME. PT DENIES ANY CURRENT WANTS OR NEEDS. CALL LIGHT WITHIN REACH. WILL CONTINUE TO MONITOR.
[2019-09-19] VITALS: BP 156/81
--- NOTE | 2019-09-19 00:02 | NUR ---
PT RESTING IN BED WITH EYES CLOSED. WAKES EASILY. DENIES ANY PAIN OR DISCOMFORT. NO APPARENT RESPIRATORY DISTRESS NOTED. 02 @ 2L/M VIA NC. CALL LIGHT WITHIN REACH. WILL CONTINUE TO MONITOR.
[2019-09-19 03:43] VITALS: BP 155/87
--- NOTE | 2019-09-19 04:17 | NUR ---
INCONTINENT OF BLADDER. PARTIAL BED BATH AND JULISSA-CARE PROVIDED. LINENS CHANGED AND REPOSITIONED FOR COMFORT. PT DENIES ANY PAIN OR DISCOMFORT. NO APPARENT DISTRESS NOTED. CALL LIGHT WITHIN REACH. WILL CONTINUE TO MONITOR.
[2019-09-19 06:13] LABS: HEMATOCRIT 44.5 % (39.0-50.0); HEMOGLOBIN 14.1 g/dl (14.0-18.0); IMMATURE GRANULOCYTES 1.4 % (0.0-5.0); MEAN CORPUSCULAR HGB 28.2 pG CALC (26.0-32.0); MEAN CORPUSCULAR HGB CONC 31.7 g/L CALC (32.0-36.0); NEUT# 9.81 thou/uL (1.82-7.42); RED CELL DISTRI WIDTH 15.7 % (11.5-15.5)
[2019-09-19 06:29] LABS: ANION GAP 15 (6-22 (CALC)); BUN 38 mg/dL (8-23); BUN/CREATININE RATIO 32 (12-20 (CALC)); CARBON DIOXIDE 27 mmol/l (22-30); CHLORIDE 99 mmol/l (95-108); CREATININE 1.2 mg/dL (0.7-1.3); GFR 58 ML/MIN (>=60 (CALC)); GFR FOR AFR.AMER. > 60 ML/MIN (>=60 (CALC)); SODIUM 136 mmol/l (137-146)
[2019-09-19 06:33] LABS: POTASSIUM 5.2 mmol/l (3.5-5.1)
[2019-09-19 06:34] LABS: INTERNATIONAL NORMALIZED RATIO 3.7 RATIO (0.7-1.3); PROTHROMBIN TIME 36.4 SECONDS (9.0-12.5)
[2019-09-19 07:45] VITALS: BP 145/76
--- NOTE | 2019-09-19 07:45 | NUR ---
AWAKE ON ROUNDS, UP IN CHAIR. RESP NON-LABORED AT REST. O2 ON AT 2 L NC. BREATH SOUNDS COARSE THROUHGHOUT WITH FAINT WHEEZE IN BILATERAL BASES.SALINE LOCK INTACT TO , SITE BENIGN. DISCUSSED PLAN OF CARE. DENIES NEEDS AT THIS TIME. REINFORCED USE OF CALL HANKINS AND BED CONTROLS.
--- NOTE | 2019-09-19 10:09 | NUR ---
PT WAS SEEN FOR FUNCTIONAL ACTIVITY TODAY. HE WAS SEEN SITTING IN THE RECLINER. HE DID SIT<>STAND WITH MULTIPLE ATTEMPTS AND MIN A FROM THERAPIST. HE THEN REQUESTED TO USE THE BATHROOM. HE AMBULATED ~10 FT FROM CHAIR TO TOILET W/ RW AND CGA. HE PERFORMED STAND>SIT CORRECTLY AND SAFELY FOLLOWING THERAPIST'S INSTRUCTIONS. PT WAS GIVEN TIME TO FINISH AND WAS INSTRUCTED TO PULL THE RED STRING WHEN DONE. NURSE HELPED PT GET BACK TO THE RECLINER WHEN HE WAS DONE. HE WAS SITTING BACK IN THE RECLINER WHEN THERAPIST CAME BACK TO CHECK ON HIM. NO REQUESTS AT THIS TIME. HIS AMPAC SCORE TODAY IS: 14 POINTS PT WILL BENEFIT FROM IN-PT REHAB FOR CONDITIONING, GAIT AND BALANCE TRAINING.
[2019-09-19 10:44] VITALS: BP 149/83
--- NOTE | 2019-09-19 11:55 | NUR ---
PATIENT SITTING UP IN CHAIR. NO C/O VOICED.
[2019-09-19] MEDS ORDERED: Levaquin PO (13:42)
[2019-09-19] MEDS ORDERED: PREDNISONE10 MG PO (13:42)
--- NOTE | 2019-09-19 16:05 | NUR ---
SITTING UP IN CHAIR. NO COMPLAINTS VOICED. WAITING TO BE DC'D TO INTERMEDIATE THIS AFTERNOON.
[2019-09-19 16:06] VITALS: BP 142/90
--- NOTE | 2019-09-19 17:28 | NUR ---
Discharge instructions given. Patient verbalizes understanding of same. Discharged in stable condition via Wheelchair to [facility] with [facility] staff. All belongings sent with pt.
== END 2019-09-19 17:28 | DRG 194 ==
LOC: ED 07:19 → ED-I 09:20 → ED 09:31 → MS2 09:32
PROVIDERS: Nurse Practitioner Family; ADMIT Internal Medicine; ATTEND Internal Medicine
PROC: 3E0234Z Introduction of Serum, Toxoid and Vaccine into Muscle, Percutaneous Approach (ICD-10-PCS; principal; 2019-09-16)
DX: J10.00 Influenza due to other identified influenza virus with unspecified type of pneumonia (principal); I13.0 Hypertensive heart and chronic kidney disease with heart failure and stage 1 through stage 4 chronic kidney disease, or unspecified chronic kidney disease; I48.21 Permanent atrial fibrillation; I25.10 Atherosclerotic heart disease of native coronary artery without angina pectoris; E78.5 Hyperlipidemia, unspecified; F03.90 Unspecified dementia, unspecified severity, without behavioral disturbance, psychotic disturbance, mood disturbance, and anxiety; E11.22 Type 2 diabetes mellitus with diabetic chronic kidney disease; N18.3 Chronic kidney disease, stage 3 (moderate); I50.9 Heart failure, unspecified; F32.9 Major depressive disorder, single episode, unspecified; R09.02 Hypoxemia; G40.909 Epilepsy, unspecified, not intractable, without status epilepticus; M62.81 Muscle weakness (generalized); R13.10 Dysphagia, unspecified; Z23 Encounter for immunization; Z79.4 Long term (current) use of insulin; Z79.01 Long term (current) use of anticoagulants; Z86.73 Personal history of transient ischemic attack (TIA), and cerebral infarction without residual deficits; J11.1 Influenza due to unidentified influenza virus with other respiratory manifestations
CPT/HCPCS: J3370

== ENCOUNTER 2020-06-03 13:48 | Inpatient (IN) | payer MEDICARE, OTHER ==
[~2020-06-03] VITALS: Ht 175.3 cm; Wt 110.5 kg
[~2020-06-03 13:48] MED LIST changes: +DOXYCYC MONO100 M2 PO; +GABAPENTIN100 MG PO; +IPRATROPIU0.5 MG/3 M IN; +LEVEMIR100 UNIT/M SC; +Levaquin PO; +NOVOLOG FL100 UNIT/M SC; +PREDNISONE10 MG PO; +ROWEEPRA1000 MG PO; +TRADJENTA5 MG PO; +TRAZODONE50 MG PO; +VENLAFAXINE HCL50 MG PO
--- NOTE | 2020-06-03 13:49 | NUR ---
PT TO ROOM VIA EMS
--- NOTE | 2020-06-03 14:00 | NUR ---
PT WITH HOB ELEVATED, PT REPORTS " JUST DON'T FEEL GOOD" DENIES CP, DENIES SOB, DENIES COUGH. SENT OVER BY MD FROM [facility] FOR RECENT POSITIVE COVID RESULTS. MONITOR SHOWS VENTRICULAR PACED RHYTHM, PT HYPOTENSIVE, IVF BOLUS INFUSING PER MD ORDER.
[2020-06-03 14:20] LABS: HEMATOCRIT 45.2 % (39.0-50.0); IMMATURE GRANULOCYTES 0.4 % (0.0-5.0); MEAN CELL VOLUME 92.4 fL CALC (80.0-100.0); MEAN CORPUSCULAR HGB 28.6 pG CALC (26.0-32.0); NEUT# 7.57 thou/uL (1.82-7.42); RED BLOOD COUNT 4.89 mill/uL (4.70-6.10)
--- NOTE | 2020-06-03 14:30 | NUR ---
PT REPOSITIONED FOR COMFORT. NO COMPLAINTS VOICED AT THIS TIME. VSS.
[2020-06-03 14:41] LABS: ALBUMIN 3.4 g/dL (3.2-5.0); BILIRUBIN, TOTAL 0.5 mg/dL (0.0-1.4); CREATININE 1.7 mg/dL (0.7-1.3); TOTAL PROTEIN 6.4 g/dL (6.3-8.2)
[2020-06-03 14:43] LABS: POTASSIUM 4.1 mmol/l (3.5-5.1)
[2020-06-03 14:55] LABS: C-REACTIVE PROTEIN 17.9 mg/dL (0-0.9)
[2020-06-03] MEDS ORDERED: ZPAK PO (15:02)
--- NOTE | 2020-06-03 15:04 | NUR ---
PT RESTING WITH EYES CLOSED, AWAKENS TO VERBAL STIMULI, MONTIOR SHOWS VENTRICULAR PACED, RATE IN THE 60'S, PT HYPOTENSIVE 60/40'S. HEAD OF BED LOWERED, NS IVF STARTED, REPEAT BP WITHIN NORMAL LIMITS. WILL CONTINUE TO MONITOR. DR LEIVA AWARE.
--- NOTE | 2020-06-03 15:23 | NUR ---
PT VOIDED 450CC CLEAR YELLOW URINE, SPECIMEN OBTAINED AND SENT TO LAB FOR ANALSYIS.
[2020-06-03] MEDS ORDERED: JARDIANCE25 MG PO (15:36)
[2020-06-03] MEDS ORDERED: TRELEGY ELLIPTA1 AER PO (15:40)
[2020-06-03 16:15] LABS: URINE BILIRUBIN - DIPSTICK NEGATIVE (NEGATIVE); URINE BLOOD DIPSTICK NEGATIVE (NEGATIVE); URINE COLOR YELLOW; URINE GLUCOSE - DIPSTICK >=1000 mg/dL (NEGATIVE); URINE KETONE NEGATIVE (NEGATIVE); URINE PROTEIN - DIPSTICK NEGATIVE (NEG-TRACE); URINE SPECIFIC GRAVITY 1.025; URINE UROBILINOGEN - DIPSTICK 0.2 E.U./dL (0.2)
[2020-06-03 16:20] LABS: URINE LEUK ESTERASE SMALL (NEGATIVE); URINE NITRITE - DIPSTICK POSITIVE (Negative)
[2020-06-03 16:33] LABS: URINE WBC 20-50 WBC/hpf (0-5)
--- NOTE | 2020-06-03 16:45 | NUR ---
ATTEMPTED TO CALL REPORT TO ICU, NO ANSWER.
--- NOTE | 2020-06-03 16:58 | NUR ---
REPORT TO ANTHONY PAYNE
--- NOTE | 2020-06-03 17:05 | NUR ---
PT INCONTINENT OF URINE, PERICARE GIVEN, NEW BRIEF APPLIED. PT TOLERATED WELL. PT TAKEN TO ICU VIA STRETCHER IN STABLE CONDITION.
[2020-06-03 17:40] VITALS: BP 132/91
--- NOTE | 2020-06-03 17:40 | NUR ---
PT ADMITTED TO ICU BED 1 FROM ED FOR COVID PNUEMONIA. TRANSPORTED VIA STRETCHER, TRANSFERRED TO BED FROM STRETCHER BY STAFF. PT A&0X4, ABLE TO MAKE NEEDS KNOWN. VENTRICULAR PACED ON TELEMETRY, HR 72. PT DENIES CP, SOB OR DISTRESS AT THIS TIME. RESPIRATIONS EVEN/UNLABORED, SA02@96% 3LPM/NC, LS EXP. RHONCHI THROUGHOUT, DRY NON-PRODUCTIVE COUGH. ABDOMEN FIRM, DISTENDED, NON-TENDER. BSX4 ACTIVE, LBM 8-26-20. PT STATES CONT OF B&B, BRIEF CDI. SKIN WITH MULTIPLE SCABS AND SCATTERED SMALL BRUISES. SKIN TEAR TO FA WITH BANDAID CDI. 18G LAC INFUSING NS@75ML/HR, NO S/S OF INFILTRATION NOTED AT SITE. 20G TO RW/SL, FLUSHES WITHOUT DIFFICULTY. NO S/S OF INFILTRATION OR INFECTION AT SITE. PT ORIENTED TO CALL LIGHT, ROOM. AND UNIT. DINNER TRAY SET UP. BS- 237. CALL LIGHT IN REACH. WILL MONITOR.
[2020-06-03 18:00] VITALS: BP 132/91
[2020-06-03 18:15] VITALS: BP 139/67
[2020-06-03 18:30] VITALS: BP 132/70
--- NOTE | 2020-06-03 19:00 | NUR ---
REPORT RECIEVED FROM ELMER CRUZ. PT RESTING IN BED, NO S/S OF DISTRESS AT THIS TIME. SAFETY PRECAUTIONS IN PLACE. WILL CONTINUE TO MONITOR.
--- NOTE | 2020-06-03 19:30 | NUR ---
PT CALLED FOR NURSE. UPON ENTERING THE ROOM PT COMPLAINS OF RIGHT HAND PAIN, ASKING FOR IV TO BE REMOVED. #22 RH REMOVED CATHETER INTACT. PT ASKING FOR URINAL TO BE MOVED CLOSER AND A NEW CUP BECAUSE HE USED HIS TO PEE IN. GAVE PT URINAL AND THREW OUT CUPS OF URINE. SAFETY PRECAUTIONS IN PLACE. WILL CONTINUE TO MONITOR.
--- NOTE | 2020-06-03 20:20 | NUR ---
PT RESTING IN BED. ALERT AND ORIENTED. RESPIRATIONS ARE EVEN AND UNLABORED ON O2 VIA NC. LUNGS SOUND COARSE/DIMINISHED. PEDAL PULSES ARE WEAK. PT PROVIDED WITH ICE WATER AND A FRESH CUP. PT AFEBRILE PROVIDED PT WITH A BLANKET PER REQUST. CALL HANKINS WITHIN REACH. WILL CONTINUE TO MONITOR.
[2020-06-03 20:30] VITALS: BP 118/66
[2020-06-03 22:00] VITALS: BP 112/67
--- NOTE | 2020-06-03 22:16 | NUR ---
PT RESTING IN BED WATCHING TV, NO S/S OF DISTRESS AT THIS TIME.
--- NOTE | 2020-06-03 23:56 | NUR ---
PT RESTING IN BED, GAS PLANT TECHNICIAN ADJUSTED BP CUFF, PT DENIES ANY NEEDS AT THIS TIME.
[2020-06-04] VITALS (11 sets, daily range): BP systolic 100–159; BP diastolic 51–85
--- NOTE | 2020-06-04 00:12 | NUR ---
PT RESTING IN BED, WITH EYES CLOSED. RESPIRATIONS SHALLOW ON RA. SAFETY PRECAUTIONS IN PLACE.
--- NOTE | 2020-06-04 04:10 | NUR ---
PT RESTING IN BED WITH EYES CLOSED, RESPIRATIONS EVEN AND UNLABORED ON O2.
--- NOTE | 2020-06-04 05:13 | NUR ---
PT RESTING IN BED, PT PROVIDED WITH ANOTHER URINAL. A MAGAZINE, AND CROSS WORD PUZZLE PER SURINDER. SAFETY PRECAUTIONS IN PLACE. WILL CONTINUE TO MONITOR.
[2020-06-04 05:44] LABS: HEMOGLOBIN 13.8 g/dl (14.0-18.0); IMMATURE GRANULOCYTES 0.3 % (0.0-5.0); MEAN CELL VOLUME 93.4 fL CALC (80.0-100.0); MEAN CORPUSCULAR HGB 28.6 pG CALC (26.0-32.0); MEAN CORPUSCULAR HGB CONC 30.7 g/dL CAL (32.0-36.0); NEUT# 4.64 thou/uL (1.82-7.42); RED BLOOD COUNT 4.82 mill/uL (4.70-6.10); RED CELL DISTRI WIDTH 14.6 % (11.5-15.5)
[2020-06-04 06:02] LABS: ALBUMIN 3.2 g/dL (3.2-5.0); BILIRUBIN, TOTAL 0.5 mg/dL (0.0-1.4); CREATININE 1.5 mg/dL (0.7-1.3); POTASSIUM 4.7 mmol/l (3.5-5.1); TOTAL PROTEIN 6.2 g/dL (6.3-8.2)
--- NOTE | 2020-06-04 06:25 | NUR ---
PT HAD A LARGE BM, PT INCONTINENT OF BOWEL. PT CLEANED UP, BED BATH PREFORMED, PT TOLERATED WELL. BED LINENS CHANGED, NEW GOWN ON PT. PT REPOSITIONED. SAFETY PRECAUTIONS IN PLACE. WILL CONTINUE TO MONITOR.
--- NOTE | 2020-06-04 07:35 | NUR ---
pt awake in bed; no apparent distress noted; pt offers no complaints; assessment completed at this time; pt alert and oriented; denies pain; no n/v noted; resp even and unlabored; lungs coarse; skin color wnl; o2 per nc; roll form operator dry cough noted; hr reg; weak pedal pulses; trace edema noted; paced on monitor; abd soft with bs present; no bm noted per chief underwriter; pt voiding clear yellow urine without complication; urinal at bedside; #18 ems site patent to lac with ivf infusing without complication; no redness or edema noted at site; redness noted to bilat groin folds; skin tear rotary engraver to rfa; pt admits chair bound/ prt admits to ability to transfer from bed to chair; plan of care/am meds explained; call light within reach; will continue to monitor
--- NOTE | 2020-06-04 08:04 | NUR ---
awake in bed; am meds explained and administered; meal prepped; paced on monitor; pt deny needs; iv intact and patent; call light within reach; will continue to monitor
--- NOTE | 2020-06-04 08:51 | NUR ---
Dr Sherman present at bedside to assess pt and discuss plan of care
--- NOTE | 2020-06-04 10:15 | NUR ---
resting in bed with eyes closed; easily aroused; pt noted ra; o2 sat 96%; no resp distress noted; paced on monitor; iv intact; call light within reach; will continue to monitor
--- NOTE | 2020-06-04 12:05 | NUR ---
awake in bed eating lunch; no apparent distress noted; pt offers no complaints; iv intact and patent; no redness or edema noted at site; paced on monitor; ra; call light within reach; will continue to monitor
[2020-06-04 12:34] LABS: INTERNATIONAL NORMALIZED RATIO 1.3 RATIO (0.7-1.3); PROTHROMBIN TIME 12.7 SECONDS (9.0-12.5)
--- NOTE | 2020-06-04 12:58 | NUR ---
mana called from sign other Oleg; states that pt is calling him because her brief is full of shit and blood; call light has not went off; family assured pt was last checked on at 1215 and assited to bsc at that time; sign other assured staff will go in and check on pt;
--- NOTE | 2020-06-04 13:01 | NUR ---
staff at bedside to assist pt to commode; pt educated on use of call light and able to demonstrate use; will continue to monitor
--- NOTE | 2020-06-04 14:20 | NUR ---
resting in bed with eyes closed; no apparent distress noted; resp even and unlabored; iv intact and patent; sr on monitor; call light within reach; will continue to monitor
[2020-06-04] MEDS ORDERED: MULTI VIT PO (15:14)
--- NOTE | 2020-06-04 15:59 | NUR ---
S: FAUSTINA MCCOY is a 79 M who presents with pneumonia due to COVID-19 virus. He has a history of T2DM, HTN, A Fib, seizure disorder, CKD 3, CHF. All medications in patient's chart were reviewed. O: VS: BP 159/85 mmHg, P 60 bpm, RR 23 breaths/min, T 96.9 F W 112 kg, HT175.26 cm, Scr= 1.5 mg/dL, CrCl= 47.7 ml/min A: Blood culture is pending. P: Patient is on Cefepime 2 g IV Q12H. Vancomycin ordered for pharmacy to dose. Start Vancomycin 1250 mg IV Q24H. Vancomycin trough is drawn before the 4th dose on 06/07/20 at 1400. Vancomycin goal trough is between 15-20 mcg/ml. Pharmacy will follow and or advise on antibiotics use as needed.
--- NOTE | 2020-06-04 16:01 | NUR ---
resting in bed with eyes closed; no apparent distress noted; resp even and unlabored; paced on monitor; urinal at bedside; iv intact and patent; call light within reach; will continue to monitor
--- NOTE | 2020-06-04 17:56 | NUR ---
awake in bed eating dinner; no apparent distress noted; pt offers no complaints; iv intact and patent; no redness or edema noted at site; paced on monitor; call light within reach
--- NOTE | 2020-06-04 19:30 | NUR ---
RESTING IN BED WATCHING TV. ALERT AND ORIENTED. RESP NON-LABORED. RA O2 SAT 96% MONITOR SHOWS 100% PACED RHYTHM. IV IN LAC WITH NS INFUSING AT 50 ML/HR, SITE BENIGN. VOIDS CLEAR YELLOW URINE IN URINAL. PATIENT WILL TRANSFERRED TO ROOM 291 SHORTLY.
--- NOTE | 2020-06-04 19:50 | NUR ---
TELEPHONE REPORT RECEIVED FROM Leonides LUNA RN
--- NOTE | 2020-06-04 19:50 | NUR ---
REPORT CALLED TO BLANCO/ELMER.
--- NOTE | 2020-06-04 21:00 | NUR ---
TRANSFERRED TO ROOM 291 VIA WC ACCOMPANIED BY ZACHARY/LORENZA.
--- NOTE | 2020-06-04 21:05 | NUR ---
PT ARRIVES TO UNIT VIA WC ACCOMPANIED BY Leonides MONTENEGRO CNA, TRANSFERRED TO ROOM 291 FROM ICU. PT ASSISTED TO WC TO BED W/ +1 ASSIST W/O DIFFICULTY.
--- NOTE | 2020-06-04 22:00 | NUR ---
IV SITE DISLODGED BY PT, CATHETER INTACT, PRESSURE DRESSING APPLIED.
--- NOTE | 2020-06-04 22:06 | NUR ---
FINGER STICK GLUCOSE 201
--- NOTE | 2020-06-04 22:20 | NUR ---
PHYSICAL ASSESMENT COMPLETE, PT RESTING IN BED. SCHEDULED MEDICATIONS ADMINISTERED, SEE E-MAR. PLAN OF CARE REVIEWED, DENIES QUESTIONS, VERBALIZES UNDERSTANDING. NEW IV SITE STARTED TO LFA 22G, X2 ATTEMPTS. DENIES FURTHER NEEDS. CALL HANKINS WITHIN REACH, AGREES TO CALL PRN.
--- NOTE | 2020-06-05 00:46 | NUR ---
PT SLEEPING, APPEARS COMFORTABLE AND IN NO DISTRESS, RESPIRATIONS REGULAR AND UNLABORED, CALL HANKINS REMAON WITHIN REACH.
[2020-06-05 04:37] VITALS: BP 158/83
[2020-06-05 08:20] LABS: INTERNATIONAL NORMALIZED RATIO 1.3 RATIO (0.7-1.3); PROTHROMBIN TIME 12.7 SECONDS (9.0-12.5)
--- NOTE | 2020-06-05 10:00 | NUR ---
PT IS ALERT AND ORIENTED AND ABLE TO MAKE NEEDS KNOWN. SKIN WARM TO TOUCH. MEDICATIONS GIVEN AND TOLERATED WELL. MEDICATIONS GIVENA DN TOLERATED WELL. ON NORMAL SALINE 0.9% AT 50ML/HR AND TOLERATING WELL. CONTINUES IV ABT THERAPY WITH NO COMPLICATIONS NOTED. MD IN TO SEE PT AND NEW ORDERS NOTED. OXYGEN THERAPY IN PLACE AND PY DENIES RESPIRATORY DISTRESS. HOB ELEVATD AND CALL LIGHT WITHIN REACH. WILL CONTINUE TO OBSERVE
[2020-06-05 11:36] VITALS: BP 143/77
[2020-06-05 16:29] VITALS: BP 136/71
--- NOTE | 2020-06-05 18:48 | NUR ---
PT IN BED WITH EYES OPEN.. VERY PLEASANT. NOTED PT CONTINUOUSLY TAKING O2 OFF. O2 SAT 91% ra. O2 REAPPLIED AND UP TO 95%. EDUCATED PT TO LEAVE OXYGEN IN PLACE TO FACILITATE BREATHNG AND HE STATED HE UNDERSTOOD. BS 194 AND COVERAGED GIVEN PRESCRIBED. HOB ELEVATED AND CALL LIGHT WITHIN REACH. WILL CONTINUE TO OBSERVE
--- NOTE | 2020-06-05 19:00 | NUR ---
REPORT RECEIVED FROM Leonides MICHEL RN, CARE OF PT ASSUMED AT THIS TIME.
[2020-06-05 20:05] VITALS: BP 128/72
--- NOTE | 2020-06-05 21:00 | NUR ---
BED BATH AND LINEN CHANGE BY Leonides MONTENEGRO CNA
--- NOTE | 2020-06-05 21:30 | NUR ---
PHYSICAL ASSESMENT COMPLETE. PT LAYING IN BED. RESPIRATIONS REGULAR AND UNLABORED. NO APPARENT DISTRESS. SEE E-MAR FOR ADMINISTRATION OF SCHEDULED AND PRN MEDICATION(S). PLAN OF CARE REVIEWED, PT VERBALIZES UNDERSTANDING AND DENIES QUESTIONS. PT IS ABLE TO MAKE NEEDS KNOWN, DENIES NEEDS AT THIS TIME. CALL HANKINS WITHIN REACH, AGREES TO CALL PRN.
--- NOTE | 2020-06-06 00:40 | NUR ---
PT LAYING IN BED, APPEARS TO BE SLEEPING COMFORTABLY, NO APPARENT DISTRESS, RESPIRATIONS REGULAR AND UNLABORED. CALL HANKINS REMAINS WITHIN REACH.
[2020-06-06 04:51] VITALS: BP 153/73
[2020-06-06 05:57] LABS: HEMATOCRIT 44.2 % (39.0-50.0); HEMOGLOBIN 13.7 g/dl (14.0-18.0); IMMATURE GRANULOCYTES 0.6 % (0.0-5.0); MEAN CELL VOLUME 91.9 fL CALC (80.0-100.0); MEAN CORPUSCULAR HGB 28.5 pG CALC (26.0-32.0); NEUT# 10.8 thou/uL (1.82-7.42); RED BLOOD COUNT 4.81 mill/uL (4.70-6.10); RED CELL DISTRI WIDTH 14.4 % (11.5-15.5)
[2020-06-06 06:18] LABS: ANION GAP 13 (6-22 (CALC)); BUN 32 mg/dL (8-23); BUN/CREATININE RATIO 28 (12-20 (CALC)); CARBON DIOXIDE 21 mmol/l (22-30); CHLORIDE 105 mmol/l (95-108); CREATININE 1.2 mg/dL (0.7-1.3); GFR 58 ML/MIN (>=60 (CALC)); GFR FOR AFR.AMER. > 60 ML/MIN (>=60 (CALC)); INTERNATIONAL NORMALIZED RATIO 1.5 RATIO (0.7-1.3); POTASSIUM 4.7 mmol/l (3.5-5.1); PROTHROMBIN TIME 14.6 SECONDS (9.0-12.5); SODIUM 134 mmol/l (137-146)
[2020-06-06 07:40] VITALS: BP 151/77
--- NOTE | 2020-06-06 07:40 | NUR ---
ASSESSMENT IS COMPLETED: IV SITE IS FREE FROM REDNESS OR EDEMA. HR IS REG,PULSES ARE STRONG X4, ABD IS SOFT WITH ACTIVE BS. BREATH SOUNDS ARE COARSE. O2 ON AND OFF. CONTINUE TO OSBERVE AND MONITOR.
--- NOTE | 2020-06-06 12:45 | NUR ---
PT IS RELAXING IN BED WITH NO DISTRESS NOTED. IV SITE IS FREE FROM REDNESS OR EDEMA.
[2020-06-06 15:00] VITALS: BP 140/68
--- NOTE | 2020-06-06 16:15 | NUR ---
PT IS RELAXING IN BED WITH NO DISTRESS NOTED. IV SITE IS FREE FROM REDNESS OR EDEMA. NOTED.
[2020-06-06 19:00] VITALS: BP 151/85
--- NOTE | 2020-06-06 19:00 | NUR ---
REPORT RECEIVED FROM Rodolfo WEISS LPN, CARE OF PT ASSUMED AT THIS TIME.
--- NOTE | 2020-06-06 20:30 | NUR ---
PT SPILLED URINAL IN BED, PT WASHED AND LINENS CHANGED BY Princess HORNE CNA.
--- NOTE | 2020-06-07 00:50 | NUR ---
PT LAYING IN BED, APPEARS TO BE SLEEPING COMFORTABLY, NO APPARENT DISTRESS, RESPIRATIONS REGULAR AND UNLABORED. CALL HANKINS REMAINS WITHIN REACH.
[2020-06-07 04:00] VITALS: BP 135/71
[2020-06-07 05:53] LABS: INTERNATIONAL NORMALIZED RATIO 2.2 RATIO (0.7-1.3); PROTHROMBIN TIME 20.7 SECONDS (9.0-12.5)
[2020-06-07 07:45] VITALS: BP 149/84
--- NOTE | 2020-06-07 07:45 | NUR ---
RECIEVED REPORT FROM ELMER SIMEON. PT RESTING IN SEMI FOWLERS POSITION UPON ENTERING ROOM. INTRODUCED SELF TO PT AND DISCUSSED POC. RES[PRIATIONS ARE EVEN AND UNLABORED. OXYGEN OFF PT UPON ENTERING ROOM. PT INFORMED PT THAT HE HASNT BEEN WEARING IT. 02 SATING AT 93% ROOM AIR. 2L NC LEFT AT BEDSIDE WHEN NEEDED. HEART RHYTHM IS NORMAL. BOWEL SOUNDS ARE ACTIVE IN ALL QUADRANTS, LAST REPORTED BM 06/06/20. RADIAL AND PEDAL PULSES ARE STRONG WITH NORMAL CAPILLARY REFILL.#22 IN LFA RUNNING WITH NS PER ORDER, SITE APPEARS HEALTHY ADN PATENT. PT DENEIS ANY PAIN OR DISCOMFORTS. ALL SAFETY PREACUTIONS ARE IN PLACE WITH CALL LIGHT IN REACH. WILL CONTINUE TO MONITOR
--- NOTE | 2020-06-07 09:15 | NUR ---
ATTEMPTED TO DRAWL BLOOD FOR LABS. UNSUCCESSFUL ON BOTH ATTEMPTS. LAB CALLED
[2020-06-07 10:19] LABS: HEMATOCRIT 47.2 % (39.0-50.0); HEMOGLOBIN 14.7 g/dl (14.0-18.0); IMMATURE GRANULOCYTES 1.1 % (0.0-5.0); MEAN CELL VOLUME 92.2 fL CALC (80.0-100.0); MEAN CORPUSCULAR HGB 28.7 pG CALC (26.0-32.0); MEAN CORPUSCULAR HGB CONC 31.1 g/dL CAL (32.0-36.0); NEUT# 20.24 thou/uL (1.82-7.42); RED BLOOD COUNT 5.12 mill/uL (4.70-6.10); RED CELL DISTRI WIDTH 14.4 % (11.5-15.5)
[2020-06-07 10:51] LABS: ALBUMIN 3.6 g/dL (3.2-5.0); ALKALINE PHOSPHATASE 115 u/l (38-126); ANION GAP 15 (6-22 (CALC)); BILIRUBIN, TOTAL 0.6 mg/dL (0.0-1.4); BUN 29 mg/dL (8-23); BUN/CREATININE RATIO 25 (12-20 (CALC)); C-REACTIVE PROTEIN 8.4 mg/dL (0-0.9); CARBON DIOXIDE 22 mmol/l (22-30); CHLORIDE 100 mmol/l (95-108); CREATININE 1.2 mg/dL (0.7-1.3); GFR 58 ML/MIN (>=60 (CALC)); GFR FOR AFR.AMER. > 60 ML/MIN (>=60 (CALC)); POTASSIUM 4.3 mmol/l (3.5-5.1); SGOT/AST 26 u/l (19-48); SODIUM 133 mmol/l (137-146); TOTAL PROTEIN 6.7 g/dL (6.3-8.2)
--- NOTE | 2020-06-07 12:15 | NUR ---
PT RESTING IN SEMI FOWLERS POSITION WATCHING TV. RESPIRATIONS ARE EVEN AND UNLABORED WITH NO SIGNS OF DISTRESS NOTED . PT DENIES ANY PAIN. ASSESSMENT REMAINS THE SAME. ALL SAFETY PRECAUTIONS ARE IN PLACE WITH CALL LIGHT IN REACH. WILL CONTINUE TO MONITOR
--- NOTE | 2020-06-07 14:34 | NUR ---
GENARO, ANRP AT BEDSIDE DISCUSSING POC WITH PT
[2020-06-07 15:35] VITALS: BP 121/62
--- NOTE | 2020-06-07 16:57 | NUR ---
PT WAKENED UPON ENTERING ROOM. RESPIRATIONS ARE EVEN AND UNLABORED WITH NO SIGNS OF DISTRESS NOTED. IV FLUIDS RUNNING PER ORDER. PT DENIES OF ANY PAIN OR DISCOMFORTS AT THIS TIME. ALL SAFTEY PRECAUTIONS ARE IN PLACE WITH CALL LIGHT IN REACH. WILL CONTINUE TO MONITOR.
--- NOTE | 2020-06-07 19:02 | NUR ---
REPORT FROM JENNY SHANKAR. PT NOTED SITTING UP IN BED. ALERT AND ORIENTED. NO APPARENT DISTRESS NOTED. RESPIRATIONS EVEN AND UNLABORED ON RA. IV SITE APPEARS HEALTHY WITH IVF INFUSING AT KVO. PT DENIES ANY PAIN OR DISCOMFORT. DISCUSSED POC AND SAFETY PRECAUTIONS. PT VERBALIZED UNDERSTANDING. NO CURRENT WANTS OR NEEDS. CALL LIGHT WITHIN REACH. WILL CONTINUE TO MONITOR.
[2020-06-07 19:59] VITALS: BP 141/63
--- NOTE | 2020-06-07 22:17 | NUR ---
PT INCONTINENT OF BOWEL AND BLADDER AT THIS TIME. PERICARE PROVIDED AND BRIEF APPLIED. PT REPOSITIONED IN BED. NO APPARENT DISTRESS NOTED. CALL LIGHT WITHIN REACH. WILL CONTINUE TO MONITOR.
--- NOTE | 2020-06-08 01:54 | NUR ---
PT RESTING IN BED WITH EYES CLOSED. NO APPARENT DISTRESS NOTED. RESPIRATIONS EVEN AND UNLABORED. CALL LIGHT WITHIN REACH. WILL CONTINUE TO MONITOR.
[2020-06-08 04:00] VITALS: BP 155/77
[2020-06-08 05:13] LABS: HEMOGLOBIN 13.8 g/dl (14.0-18.0); MEAN CELL VOLUME 90.7 fL CALC (80.0-100.0); MEAN CORPUSCULAR HGB 28.5 pG CALC (26.0-32.0); MEAN CORPUSCULAR HGB CONC 31.4 g/dL CAL (32.0-36.0); RED BLOOD COUNT 4.85 mill/uL (4.70-6.10); RED CELL DISTRI WIDTH 14.4 % (11.5-15.5)
[2020-06-08 05:30] LABS: INTERNATIONAL NORMALIZED RATIO 2.2 RATIO (0.7-1.3); PROTHROMBIN TIME 21.4 SECONDS (9.0-12.5)
[2020-06-08 05:38] LABS: ALBUMIN 3.2 g/dL (3.2-5.0); BILIRUBIN, TOTAL 0.5 mg/dL (0.0-1.4); CREATININE 1.7 mg/dL (0.7-1.3); POTASSIUM 4.7 mmol/l (3.5-5.1); TOTAL PROTEIN 6.2 g/dL (6.3-8.2)
--- NOTE | 2020-06-08 06:20 | NUR ---
PT RESTING IN BED. NO APPARENT DISTRESS NOTED. RESPIRATIONS EVEN AND UNLABORED. PT DENIES ANY PAIN OR SOB. CALL LIGHT WITHIN REACH. WILL CONTINUE TO MONITOR.
--- NOTE | 2020-06-08 06:55 | NUR ---
REPORT RECEIVED FROM RAAD CARBAJAL.
[2020-06-08 07:59] VITALS: BP 166/79
--- NOTE | 2020-06-08 08:00 | NUR ---
PT RESTING IN SEMI FOWLERS POSITION EATING BREAKFAST,A&O X3 WITH FORGETFULNESS NOTED AT TIMES;WILL RE-ORIENT NEEDED;VS OBTAINED AND ASSESSMENT COMPLETED;PT DENIES ANY CURRENT PAIN OR DISCOMFORTS,PAIN SCALE AND REPORTING EDUCATED;RESPIRATIONS EVEN AND UNLABORED ON RA,O2 @ 2L @ BEDSIDE PRN;NON-PRODUCTIVE COUGH NOTED AT TIMES;ABDOMEN SOFT ON PALPATION AND ACTIVE IN ALL 4 QUADRANTS;WEAK PEDAL PULSES WITH +2 EDEMA NOTED TO BLE, ENCOURAGED ELEVATION;#22G TO LFA INFUSING NS @ 10ML/HR,SITE APPEARS HEALTHY;ACCUCHECK 197, PT COVERED WITH SLIDING SCALE NOVOLOG PER ORDER;PT REMAINS IN AIR/CONTACT PRECAUTIONS DUE TO COVID19 DX;SEIZURE PRECAUTIONS NOTED;PT DENIES ANY ADDITIONAL NEEDS AT THIS TIME AND IS ENCOURAGED TO CALL FOR ASSISTANCE IF NEEDED;FALL PRECAUTIONS IN PLACE WITH CALL LIGHT IN REACH;WILL CONTINUE TO MONITOR
--- NOTE | 2020-06-08 11:30 | NUR ---
PT RESTING IN SEMI FOWLERS POSITION;RESPIRATIONS EVEN AND UNLABORED ON RA;PT DENIES ANY CURRENT PAIN OR DISCOMFORTS;IV FLUIDS INFUSING WITH EASE @ KVO;ACCUCHECK 215, PT COVERED WITH SLIDING SCALE NOVOLOG PER ORDER;PT INCONTINENT OF MODERATE LOOSE/BROWN BM AND YELLOW URINE,JULISSA CARE PROVIDED;PT DENIES ANY ADDITIONAL NEEDS AT THIS TIME AND IS ENCOURAGED TO CALL FOR ASSISTANCE IF NEEDED;CALL LIGHT IN REACH;WILL CONTINUE TO MONITOR
[2020-06-08 15:31] VITALS: BP 125/65
--- NOTE | 2020-06-08 17:00 | NUR ---
PT RESTING IN SEMI FOWLERS POSITION;RESPIRATIONS EVEN AND UNLABORED ON RA;PT DENIES ANY CURRENT PAIN OR NEEDS;IV SITE PATENT INFUSING NS PER ORDER;ACCUCHECK 269, PT COVERED WITH SLIDING SCALE NOVOLOG PER ORDER;PT ENCOURAGED TO CALL FOR ASSISTANCE IF NEEDED;CALL LIGHT IN REACH;WILL CONTINUE TO MONITOR
[2020-06-08 20:01] VITALS: BP 139/72
--- NOTE | 2020-06-08 20:01 | NUR ---
PT RESTING IN BED ALERT AND ORIENTED. RESPIRATIONS SUMAN AND UNLABORED ON O2 @ 2L VIA NC. LUNGS SOUND DIMINISHED. PEDAL PULSES ARE WEAK. PT DENIES ANY PAIN AT THIS TIME. CALL HANKINS WITHIN REACH WILL CONTINUE TO MONITOR.
--- NOTE | 2020-06-08 21:52 | NUR ---
PT RESTING IN BED, PT REPORTS HAVING "AN ACCIDENT IH HIS PANTS". PT HAD A SMALL BM. PT ABLE TO TURN HIMSELF. PT CLEANED UP AND REPOSITIONED. SAFETY PRECAUTIONS IN PLACE. WILL CONTIUE TO MONITOR.
--- NOTE | 2020-06-09 00:25 | NUR ---
PT RESTING IN BED, RESPIRATIONS EVEN AND UNLABORED ON O2 @ 2L VIA NC. WILL CONTINUE TO MONTIOR.
--- NOTE | 2020-06-09 03:06 | NUR ---
PT RESTING IN BED. NO S/S OF DISTRESS AT THIS TIME. SAFETY PRECAUTIONS IN PLACE. WILL CONTINUE TO MONITOR.
[2020-06-09 03:36] VITALS: BP 139/77
--- NOTE | 2020-06-09 07:15 | NUR ---
REPORT RECEIVED FROM ELMER MANCERA.
[2020-06-09 07:35] VITALS: BP 162/91
--- NOTE | 2020-06-09 07:35 | NUR ---
PT RESTING IN SEMI FOWLERS POSITION,A&O X3;VS OBTAINED AND ASSESSMENT COMPLETED;PT DENIES ANY CURRENT PAIN OR DISCOMFORTS,PAIN SCALE AND REPORTING EDUCATED;RESPIRATIONS EVEN AND UNLABORED ON O2 @ 2L VIA NC;NON-PRODUCTIVE COUGH AT TIMES;ABDOMEN SOFT ON PALPATION AND ACTIVE IN ALL 4 QUADRANTS;WEAK PEDAL PULSES;REDDENING NOTED TO SCROTUM BUT SKIN INTACT;#22G TO LFA INFUSING NS @ 10ML/HR,SITE APPEARS HEALTHY;ACCUCHECK 209, PT COVERED WITH SLIDING SCALE NOVOLOG PER ORDER;PT REMAINS IN AIR/CONTACT PRECAUTIONS;PT DENIES ANY ADDITIONAL NEEDS AT THIS TIME AND IS ENCOURAGED TO CALL FOR ASSISTANCE IF NEEDED;SEIZURE AND FALL PRECAUTIONS IN PLACE;CALL LIGHT IN REACH;WILL CONTINUE TO MONITOR
--- NOTE | 2020-06-09 08:10 | NUR ---
AT BEDSIDE DISCUSSING POC WITH PT.
[2020-06-09 08:40] LABS: HEMATOCRIT 43.8 % (39.0-50.0); HEMOGLOBIN 13.7 g/dl (14.0-18.0); MEAN CELL VOLUME 90.3 fL CALC (80.0-100.0); MEAN CORPUSCULAR HGB 28.2 pG CALC (26.0-32.0); MEAN CORPUSCULAR HGB CONC 31.3 g/dL CAL (32.0-36.0); NEUT# 20.77 thou/uL (1.82-7.42); RED BLOOD COUNT 4.85 mill/uL (4.70-6.10); RED CELL DISTRI WIDTH 14.5 % (11.5-15.5)
[2020-06-09 08:47] LABS: ALKALINE PHOSPHATASE 105 u/l (38-126); ANION GAP 15 (6-22 (CALC)); BILIRUBIN, TOTAL 0.7 mg/dL (0.0-1.4); BUN 38 mg/dL (8-23); BUN/CREATININE RATIO 31 (12-20 (CALC)); CARBON DIOXIDE 19 mmol/l (22-30); CHLORIDE 104 mmol/l (95-108); CREATININE 1.2 mg/dL (0.7-1.3); GFR 58 ML/MIN (>=60 (CALC)); GFR FOR AFR.AMER. > 60 ML/MIN (>=60 (CALC)); POTASSIUM 4.9 mmol/l (3.5-5.1); SGOT/AST 24 u/l (19-48); SODIUM 132 mmol/l (137-146); TOTAL PROTEIN 6.1 g/dL (6.3-8.2)
[2020-06-09 09:36] LABS: D-DIMER 0.46 mg/L (0.19-0.60)
[2020-06-09 09:38] LABS: INTERNATIONAL NORMALIZED RATIO 2.2 RATIO (0.7-1.3); PROTHROMBIN TIME 21.2 SECONDS (9.0-12.5)
--- NOTE | 2020-06-09 12:05 | NUR ---
PT RESTING IN SEMI FOWLERS POSITION EATING LUNCH;RESPIRATIONS REMAIN SHALLOW ON O2 @ 2L VIA NC;PT DENIES ANY CURRENT PAIN OR DISCOMFORTS;IV SITE PATENT INFUSING NS WITH EASE PER ORDER;ACCUCHECK 229, PT COVERED WITH SLIDING SCALE NOVOLOG PER ORDER;ALL SAFETY PRECAUTIONS REMAIN IN PLACE WITH BED IN THE LOWEST POSITION AND SEIZURE PRECAUTIONS NOTED;CALL LIGHT IN REACH;WILL CONTINUE TO MONITOR
[2020-06-09 15:00] VITALS: BP 196/90
--- NOTE | 2020-06-09 15:45 | NUR ---
PT RESTING IN SEMI FOWLERS POSITION;RESPIRATIONS REMAIN EVEN AND UNLABORED ON O2 @ 2L VIA NC;PT DENIES ANY CURRENT PAIN OR DISCOMFORTS;IV SITE PATENT INFUSING NS @ 10ML/HR,SITE APPEARS HEALTHY;CURRENT BP 196/90 HR 60, MD TO BE NOTIFIED;PT DENIES ANY ADDITIONAL NEEDS AT THIS TIME AND IS ENCOURAGED TO CALL FOR ASSISTANCE IF NEEDED;FALL PRECAUTIONS IN PLACE WITH CALL LIGHT IN REACH;WILL CONTINUE TO MONITOR
[2020-06-09 16:57] VITALS: BP 130/74
--- NOTE | 2020-06-09 17:00 | NUR ---
BP RE-CHECK 130/74 HR 80.
[2020-06-09 19:30] VITALS: BP 142/70
--- NOTE | 2020-06-09 20:03 | NUR ---
NURSING REPORT RECEIVED FROM [place]. pT ASSESSMENT AND VITALS COMPLETE. PT RESTING IN BED WATCHING TV. ALERT AND ORIENTED. NO APPARENT DISTRESS NOTED. RESPIRATIONS EVEN AND UNLABORED ON RA. IV SITE APPEARS HEALTHY WITH IVF INFUSING AT KVO. PT DENIES ANY PAIN OR DISCOMFORT. DISCUSSED POC AND SAFETY PRECAUTIONS. PT VERBALIZED UNDERSTANDING. NO CURRENT WANTS OR NEEDS. CALL LIGHT WITHIN REACH. WILL CONTINUE TO MONITOR.
--- NOTE | 2020-06-10 00:03 | NUR ---
PT RESTING IN BED, NO S/S OF DISTRESS AT THIS TIME. WILL CONTINUE TO MONITOR.
--- NOTE | 2020-06-10 04:03 | NUR ---
NEW IV PLACED IN THE RIGHT FOREARM. PT TOLERATED THE PRECEDURE WELL. NOR REDDNESS OR SWELLING.
--- NOTE | 2020-06-10 04:10 | NUR ---
PT RESTING IN BED, RESPIRATIONS EVEN AND UNLABORED ON O2 @ 2L VIA NC. WILL CONTINUE TO MONTIOR.
--- NOTE | 2020-06-10 04:42 | NUR ---
REMOVED IV FROM LEFT FOREARM. SITE APPEARED HEALTHY; PT TOLERATE PROCEDURE WELL.
[2020-06-10 05:48] VITALS: BP 142/72
[2020-06-10 05:59] LABS: HEMATOCRIT 46.4 % (39.0-50.0); HEMOGLOBIN 14.5 g/dl (14.0-18.0); IMMATURE GRANULOCYTES 5.9 % (0.0-5.0); MEAN CELL VOLUME 90.3 fL CALC (80.0-100.0); MEAN CORPUSCULAR HGB 28.2 pG CALC (26.0-32.0); MEAN CORPUSCULAR HGB CONC 31.3 g/dL CAL (32.0-36.0); NEUT# 17.69 thou/uL (1.82-7.42); RED BLOOD COUNT 5.14 mill/uL (4.70-6.10); RED CELL DISTRI WIDTH 14.2 % (11.5-15.5)
[2020-06-10 06:22] LABS: ALKALINE PHOSPHATASE 128 u/l (38-126); ANION GAP 14 (6-22 (CALC)); BILIRUBIN, TOTAL 0.6 mg/dL (0.0-1.4); BUN 40 mg/dL (8-23); BUN/CREATININE RATIO 37 (12-20 (CALC)); C-REACTIVE PROTEIN 8.6 mg/dL (0-0.9); CARBON DIOXIDE 20 mmol/l (22-30); CHLORIDE 105 mmol/l (95-108); CREATININE 1.1 mg/dL (0.7-1.3); GFR > 60 ML/MIN (>=60 (CALC)); GFR FOR AFR.AMER. > 60 ML/MIN (>=60 (CALC)); POTASSIUM 4.8 mmol/l (3.5-5.1); SGOT/AST 23 u/l (19-48); SODIUM 134 mmol/l (137-146); TOTAL PROTEIN 6.1 g/dL (6.3-8.2)
--- NOTE | 2020-06-10 07:15 | NUR ---
REPORT RECEIVED FROM ELMER ALLRED.
[2020-06-10 07:39] VITALS: BP 172/92
--- NOTE | 2020-06-10 07:40 | NUR ---
PT RESTING IN SEMI FOWLERS POSITION,A&O X3;VS OBTAINED AND ASSESSMENT COMPLETED,CURRENT BP 172/92 HR 68;PT TO BE MEDICATED WITH PRN APRESOLINE 10MG IVP BY ELMER CALIXTO;PT DENIES ANY CURRENT PAIN OR DISCOMFORTS,PAIN SCALE AND REPORTING EDUCATED;RESPIRATIONS SHALLOW ON O2 @ 2L VIA NC;NON-PRODUCTIVE COUGH NOTED AT TIMES;ABDOMEN SOFT ON PALPATION AND ACTIVE IN ALL 4 QUADRANTS;WEAK PEDAL PULSES;REDDENING NOTED TO SCROTUM BUT SKIN OTHERWISE INTACT;#22G TO RFA INFUSING NS @ 10ML/HR,SITE APPEARS HEALTHY;ACCUCHECK 213, PT COVERED WITH SLIDING SCALE NOVOLOG PER ORDER;PT DENIES ANY ADDITIONAL NEEDS AT THIS TIME AND IS ENCOURAGED TO CALL FOR ASSISTANCE IF NEEDED;FALL PRECAUTIONS IN PLACE WITH BED IN THE LOWEST POSITION AND CALL LIGHT IN REACH;WILL CONTINUE TO MONITOR
--- NOTE | 2020-06-10 08:14 | NUR ---
10 MG IV APRESOLINE GIVEN FOR BP 172/92 AND HR 68. JULIUS BURTN TO REASSESS
[2020-06-10 09:19] VITALS: BP 128/59
--- NOTE | 2020-06-10 09:20 | NUR ---
BP RE-CHECK 128/59 HR 78.
--- NOTE | 2020-06-10 09:34 | NUR ---
AT BEDSIDE DISCUSSING POC WITH PT.
--- NOTE | 2020-06-10 11:40 | NUR ---
PT OOB RESTING IN RECLINER;RESPIRATIONS EVEN AND UNLABORED ON O2 @ 2L VIA NC;PT DENIES ANY CURRENT PAIN OR DISCOMFORTS;IV SITE PATENT INFUSING NS @ 10 PER ORDER;ACCUCHECK 237, PT COVERED WITH SLIDING SCALE NOVOLOG PER ORDER;PT DENIES ANY ADDITIONAL NEEDS AT THIS TIME;ASSESSMENT REMAINS UNCHANGED;ENCOURAGED TO CALL FOR ASSISTANCE IF NEEDED;CALL LIGHT IN REACH;WILL CONTINUE TO MONITOR
[2020-06-10 15:26] VITALS: BP 128/68
--- NOTE | 2020-06-10 15:40 | NUR ---
PT RESTING IN SEMI FOWLERS POSITION;RESPIRATIONS EVEN AND UNLABORED ON O2 @ 2L VIA NC;PT DENIES ANY CURRENT PAIN OR DISCOMFORTS;IV FLUIDS CONTINUE TO INFUSE WITH EASE PER ORDER;ASSESSMENT REMAINS UNCHANGED AT THIS TIME;ENCOURAGED TO CALL FOR ASSISTANCE IF NEEDED;FALL AND SEIZURE PRECAUTIONS IN PLACE WITH BED IN THE LOWEST POSITION AND CALL LIGHT IN REACH;WILL CONTINUE TO MONITOR
[2020-06-10 19:12] VITALS: BP 131/61
--- NOTE | 2020-06-10 22:44 | NUR ---
PT REPORT RECEIVED FROM DAVID. ASSESSMENT AND VITALS COMPLETE. RESTING IN SEMI FOWLERS POSITION,A&O X3. PT DENIES ANY CURRENT PAIN OR DISCOMFORTS,PAIN SCALE AND REPORTING EDUCATED;RESPIRATIONS SHALLOW ON O2 @ 2L VIA NC;NON-PRODUCTIVE COUGH NOTED AT TIMES;ABDOMEN SOFT ON PALPATION AND ACTIVE IN ALL 4 QUADRANTS;WEAK PEDAL PULSES;REDDENING NOTED TO SCROTUM BUT SKIN OTHERWISE INTACT;#22G TO RFA INFUSING NS @ 10ML/HR,SITE APPEARS HEALTHY;ACCUCHECK 330, PT COVERED WITH SLIDING SCALE NOVOLOG PER ORDER;PT DENIES ANY ADDITIONAL NEEDS AT THIS TIME AND IS ENCOURAGED TO CALL FOR ASSISTANCE IF NEEDED;FALL PRECAUTIONS IN PLACE WITH BED IN THE LOWEST POSITION. WILL CONTINUE TO MONITOR. AND CALL LIGHT IN REACH;WILL CONTINUE TO MONITOR
--- NOTE | 2020-06-11 02:04 | NUR ---
PT MEDICATED W/IV ANTIBIOTIC THERAPY. PT SLEEPING SOUNDLY, NO S/O DISTRESS NOTED. URINAL EMPTIED OF 300CC OF CLEAR YELLOW URINE. CALL LIGHT W/IN REACH.
[2020-06-11 04:37] LABS: HEMATOCRIT 46.8 % (39.0-50.0); HEMOGLOBIN 14.8 g/dl (14.0-18.0); MEAN CORPUSCULAR HGB 28.5 pG CALC (26.0-32.0); MEAN CORPUSCULAR HGB CONC 31.6 g/dL CAL (32.0-36.0); RED BLOOD COUNT 5.2 mill/uL (4.70-6.10); RED CELL DISTRI WIDTH 14.2 % (11.5-15.5)
[2020-06-11 04:40] VITALS: BP 130/68
--- NOTE | 2020-06-11 04:49 | NUR ---
PT RESTING IN BED, NO S/S OF DISTRESS AT THIS TIME. WILL CONTINUE TO MONITOR.
[2020-06-11 04:59] LABS: ALBUMIN 2.9 g/dL (3.2-5.0); ALKALINE PHOSPHATASE 125 u/l (38-126); ANION GAP 14 (6-22 (CALC)); BILIRUBIN, TOTAL 0.6 mg/dL (0.0-1.4); BUN 41 mg/dL (8-23); BUN/CREATININE RATIO 35 (12-20 (CALC)); CARBON DIOXIDE 21 mmol/l (22-30); CHLORIDE 103 mmol/l (95-108); CREATININE 1.2 mg/dL (0.7-1.3); GFR 58 ML/MIN (>=60 (CALC)); GFR FOR AFR.AMER. > 60 ML/MIN (>=60 (CALC)); SGOT/AST 27 u/l (19-48); SODIUM 132 mmol/l (137-146)
[2020-06-11 05:00] LABS: INTERNATIONAL NORMALIZED RATIO 3.1 RATIO (0.7-1.3); PROTHROMBIN TIME 29.5 SECONDS (9.0-12.5)
[2020-06-11 08:02] VITALS: BP 148/67
--- NOTE | 2020-06-11 08:02 | NUR ---
RECEIEVED REPORT FROM ELMER ALLRED. PT SITTING UP IN RECYLINER UPON ENTERING ROOM. INTRODUCED SELF TO PT AND DISCUSSED POC. ASSESSMENT AND VITALS COMPLETED AT THIS TIME. RESIRPATIONS ARE EVEN AND UNLABORED WITH NO SIGNS OF DISTRESS. LUNG SOUNDS ARE COARSE, PT COMPLAINS OF SOB WHEN GETTING UP AND MOVING. I.S AT BEDSIDE. RE-EDUCATED PT ON HOW TO USE. PT VERBAILZED UNDERSTANDING. HEART RHYTHM IS NORMAL. RADIAL AND PEDAL PULSES ARE STRONG WITH NORMAL CAPILLARY REFILL. #22 RUNNING WITH NS PER ORDER, SITE APPEARS HEALTHY AND PATENT.SKIN IS WARM AND DRY WITH NO BREAKDOWN. BLE SLIGHTLY REDDENED, LEGS ELEVATED TO ASSIST. PT DENIES OF ANY PAIN OR NEEDS AT THIS TIME. ALL SAFETY AND ISOLATION PRECAUTIONS ARE IN PLACE WITH CALL LIGHT IN REACH. WILL CONTINUE TO MONITOR.
--- NOTE | 2020-06-11 12:00 | NUR ---
PT REQUEST TO GET BACK INTO BED AT THIS TIME. PEACE CRAWFORD ASSISTED PT. PT BACK INTO BED. RESPIRATIONS ARE EVEN AND UNLABORED WITH NO SIGNS OF DISTRESS NOTED. PT DENIES ANY PAIN OR DISCOMFORTS AT THIS TIME. IV FLUIDS RUNNING KVO PER ORDER, SITE APPEARS HEALTH AND PATENT. ALL SAFETY PRECAUTIONS ARE IN PLACE WITH CALL LIGHT IN REACH. WILL CONTINUE TO MONITOR
[2020-06-11 16:30] VITALS: BP 122/81
--- NOTE | 2020-06-11 16:38 | NUR ---
PT RESTING IN SEMI FOWELRS POSTION WATCHING TV UPON ENETRING ROOM. RESPIRATIONS ARE EVEN AND UNLABORED WITH NO SIGNS OF DISTRESS.IV FLUIDS RUNNING KVO PER ORDER. PT DENIES ANY PAIN OR DISCOMFORTS. ALL SAFETY PRECAUTIONS ARE IN PLACE WITH CALL LIGHT IN REACH. WILL CONTINUE TO MONITOR.
[2020-06-11 19:00] VITALS: BP 148/82
--- NOTE | 2020-06-11 19:50 | NUR ---
REPORT RECEIVED FROM RAAD ORDOÑEZ. PT RESTING IN BED FREE FROM DISTRESS AT THIS TIME. SAFETY PRECAUTIONS IN PLACE WILL CONTINUE TO MONITOR.
--- NOTE | 2020-06-11 21:40 | NUR ---
PT RESTING IN BED ALERT AND ORIENTED. RESPIRATIONS EVEN AND UNLABORED ON O2 @ 2L VIA NC. LUNGS SOUND DIMINISHED. PEDAL PULSES ARE WEAK. PT DENIES ANY PAIN OR DISCOMFORT AT THIS TIME. PT PROVIDED WITH A FRESH CUP OF ICE WATER AT THIS TIME. SAFETY PREACUTIONS IN PLACE. WILL CONTINUE TO MONTIOR.
--- NOTE | 2020-06-12 00:16 | NUR ---
PT RESTING IN BED, NO S/S OF DISTRESS AT THIS TIME. WILL CONTINUE TO MONITOR.
--- NOTE | 2020-06-12 03:05 | NUR ---
REPORT RECEIVED FROM RAAD ORDOÑEZ. PT RESTING IN BED FREE FROM DISTRESS AT THIS TIME. SAFETY PRECAUTIONS IN PLACE WILL CONTINUE TO MONITOR.
[2020-06-12 03:51] VITALS: BP 140/74
[2020-06-12 04:20] LABS: HEMATOCRIT 47.4 % (39.0-50.0); HEMOGLOBIN 14.8 g/dl (14.0-18.0); MEAN CELL VOLUME 89.9 fL CALC (80.0-100.0); MEAN CORPUSCULAR HGB 28.1 pG CALC (26.0-32.0); MEAN CORPUSCULAR HGB CONC 31.2 g/dL CAL (32.0-36.0); RED BLOOD COUNT 5.27 mill/uL (4.70-6.10); RED CELL DISTRI WIDTH 14.4 % (11.5-15.5)
--- NOTE | 2020-06-12 04:21 | NUR ---
PT RESTING IN BED, WITH EYES CLOSED, FREE FROM DISTRESS. WILL CONTINUE TO MONITOR.
[2020-06-12 04:33] LABS: ALKALINE PHOSPHATASE 130 u/l (38-126); ANION GAP 15 (6-22 (CALC)); BILIRUBIN, TOTAL 0.7 mg/dL (0.0-1.4); BUN 44 mg/dL (8-23); BUN/CREATININE RATIO 38 (12-20 (CALC)); CARBON DIOXIDE 19 mmol/l (22-30); CHLORIDE 103 mmol/l (95-108); CREATININE 1.1 mg/dL (0.7-1.3); GFR > 60 ML/MIN (>=60 (CALC)); GFR FOR AFR.AMER. > 60 ML/MIN (>=60 (CALC)); POTASSIUM 5.1 mmol/l (3.5-5.1); SGOT/AST 22 u/l (19-48); SODIUM 132 mmol/l (137-146); TOTAL PROTEIN 6.1 g/dL (6.3-8.2)
[2020-06-12 04:39] LABS: INTERNATIONAL NORMALIZED RATIO 2.8 RATIO (0.7-1.3); PROTHROMBIN TIME 26.8 SECONDS (9.0-12.5)
[2020-06-12 07:34] VITALS: BP 153/84
--- NOTE | 2020-06-12 07:43 | NUR ---
RECIEVED REPORT FROM Graciela ÁLVAREZ RN. PT RESTING IN SEMI FOWLERS POSITION UPON ENTERING ROOM. INTRODUCED SELF TO PT AND DISCUSSED POC. PT IS A/O WITH SOME CONFUSION. ASSESSMENT AND VITALS COMPLETED. RESPIRATIONS ARE EVEN AND UNLABORED WITH NO SIGNS OF DISTRESS. LUNG SOUNDS ARE COURSE. WRITTER EDUCATED PT ON I.S AT BEDSIDE. PT VERBALIZED UNDERSTANDING. HEART RHYTHM IS NORMAL.RADIAL PULSES ARE STRONG, PEADL PULSES WEAK WITH NORMAL CAPILLARY REFILL. #22 IN LFA RUNNING WITH NS PER ORDER, SITE APPEARS HEALTHY ADN PATENT. PT DENIES ANY [AIN OR DISCOMFORTS AT THIS TIME.AL SAFTEY AND ISOLATION PRECAUTIONS IN PLACE WITH CALL LIGHT IN REACH, WILL CONTINUE TO MONITOR
--- NOTE | 2020-06-12 11:45 | NUR ---
PT RESTING WITH EYES CLOSED UPON ENTERING ROOM. RESPIRATIONS ARE EVEN AND UNLABORED WITH NO SIGNS OF DISTRESS NOTED, 2L NC IN PLACE. #22 IN RFA RUNNING WITH NS PER ORDER, SITE APPEARS HEALTHY AND PATENT. ALL SAFTEY PRECAUTIONS ARE IN PLACE WITH CALL LIGHT IN REACH. WILL CONTINUE TO MONITOR.
--- NOTE | 2020-06-12 12:36 | NUR ---
DC ORDERS IN AT THIS TIME. AWAITING FOR CM TO ASSIST WITH DISCHARGE BACK TO [facility]. SPOKE WITH RAMIREZ FROM . WRITTER WAS INFORMED THAT CM WOULD ARRIVE IN ABOUT AN HOUR
[2020-06-12 16:15] VITALS: BP 157/72
--- NOTE | 2020-06-12 16:20 | NUR ---
PT RESTING IN SEMI FOWLERS POSTIION WITH EYES CLOSED. RESPIRATIONS ARE EVEN AND UNLABORED WITH NO SIGNS OF DISTRESS. NO SIGNS OF ANY DISTRESS NOTED. AWAITING FOR DISCHARGE BACK TO [facility]. ALL SAFETY PRECAUTIONS ARE IN PLACE WITH CALL LIGHT IN REACH. WILL CONTINUE TO MONITOR
--- NOTE | 2020-06-12 18:32 | NUR ---
NOTIFIED BY CM THAT PT WAS NOT GOING TO BE ABLE TO GO BACK TO [facility] UNTIL SUNDAY DUE TO NOT HAVING ROOMS. RELOCATION COMMISSIONER NOTIFIED.
[2020-06-12 19:00] VITALS: BP 147/72
--- NOTE | 2020-06-12 19:05 | NUR ---
REPORT RECEIVED FROM RAAD ORDOÑEZ. PT RESTING IN BED FREE FROM DISTRESS AT THIS TIME. SAFETY PRECAUTIONS IN PLACE. WILL CONTINUE TO MONITOR.
--- NOTE | 2020-06-13 01:04 | NUR ---
PT RESTING IN BED, NO S/S OF DISTRESS AT THIS TIME. SAFETY PRECAUTIONS IN PLACE. WILL CONTINUE TO MONITOR.
[2020-06-13 04:00] VITALS: BP 144/81
--- NOTE | 2020-06-13 04:42 | NUR ---
PT RESTING IN BED, FREE FROM DISTRESS AT THIS TIME. CALL HANKINS WITHIN REACH. WILL CONTINUE TO MONITOR.
--- NOTE | 2020-06-13 08:10 | NUR ---
RECIEVED REPORT FROM Graciela ÁLVAREZ RN. PT SITTING IN RECYLINER EATING BREAKFAST UPON ENTERING ROOM. INTRODUCED SELF TO PT AND DISSCUSSED PLAN OF CARE. ASSESSMENT AND VITAL COMPLETED. PT IS A/O BUT CONFUSED AT TIME. RESPIRATIONS ARE EVEN AND UNLABORED WITH NO SIGNS OF DISTRESS NOTED. HEART RHYTHM IS NORMAL. BOWEL SOUNDS ARE ACTIVE IN ALL QUADRANTS. RADIAL PULSES ARE STRONG. PEDAL PULSES ARE WEAK WITH NORMAL CAPILLARY REFILL. #22 IN RFA RUNNING WIHT NS PER ORDER, SITE APPEARS HEALTHY AND PATENT. PT DENIES OF ANY PAIN OR NEEDS AT THIS TIME. ALL SAFETY AND ISOLATION PRECAUTIONS ARE IN PLACE WITH CALL LIGHT IN REACH. WILL CONTINUE TO MONITOR.
[2020-06-13 09:44] LABS: INTERNATIONAL NORMALIZED RATIO 2.1 RATIO (0.7-1.3); PROTHROMBIN TIME 19.9 SECONDS (9.0-12.5)
--- NOTE | 2020-06-13 10:26 | NUR ---
JIMMY, ANLEOBARDO AT BEDSIDE DISCUSSING POC WITH PT
--- NOTE | 2020-06-13 11:33 | NUR ---
PT RESTING IN SEMI FOWLERS POSITION UPON ENTERING ROOM. RESPIRATIONS ARE EVEN AND UNLABORED WITH NO SIGNS OF DISTRESS NOTED. PRN 2L NC AT BEDSIDE. EDUCATED PT ON REAPPLYING IF NEEDED. PT VERBALIZED UNDERSTANDING. ORDERS TO DC IV FLUIDS. #22G IN RFA SL. ALL SAFETEY PRECAUTIONS ARE IN PLACE WITH CALL LIGHT IN REACH. WILL CONMTINUE TO MONITOR
[2020-06-13 14:51] VITALS: BP 139/70
--- NOTE | 2020-06-13 15:13 | NUR ---
NEW #22G IV STARTED IN YOVANY.FLUSHED, SITE APPEARS EHALTHY AND PATENT.EXISTING #22 IN RFA REMOVED WITH CATHATER STILL INTACT. PT TOLERATED WELL.
--- NOTE | 2020-06-13 15:33 | NUR ---
PT PRESENTS REDDENED RASH ON BUTTOCKS AND INNER THIGHS. MD NOTIFIED.
--- NOTE | 2020-06-13 15:58 | NUR ---
DESITIN AND MICONASOLE POWDER ORDERED. UNABLE TO RECIEVED AT THIS TIME DUE TO HAVING TO GET FROM [facility]. TRANSFER CAR OPERATOR NOTIFIED.
--- NOTE | 2020-06-13 16:54 | NUR ---
PT RESTING IN SEMI FOWLERS POSITION FREE FROM DISTRESS. PT DENIES ANY PAIN OR DISCOMFORTS AT THIS TIME. ASSESSMENT REMAINS THE SAME. ALL SAFETY AND ISOLATIONS PRECAUTIONS ARE IN PLACE WITH CALL LIGHT IN REACH. WILL CONTINUE TO MONITOR.
--- NOTE | 2020-06-13 18:00 | NUR ---
LOTION APPLIED TO RASH TO ASSIST WITH ITCHING INBETWEEN THIGHS. PT REFUSED TO BE TURNED. WRITTER EDUCATED THE NEED TO GET PRESSURE OFF BUTTOCKS. PT VERBAILZED UNDERSTANDING. PT TURNED ON LEFT SIDE. RESPIRATIONS ARE EVENE AND UNLABORED WITH NO ISGNS OF DISTYRESS. ALL SAFETY PRECAUTIONS ARE IN PLACE WITH CALL LIGHT IN REACH. WILL CONTINUE TO MONITOR
[2020-06-13 19:00] VITALS: BP 138/72
--- NOTE | 2020-06-13 21:14 | NUR ---
PT SLEEPING IN BED, AWAKANED TO COMPLETE ASSESSMENT. A&O X3. NO DISTRESS NOTED. O2 VIA NC @2L IN PLACE. ROUTE DELIVERY DRIVER COUGH NOTED. COARSE BREATH SOUNDS HEARD UPON AUSCULTATION. NO OTHER NEEDS FROM PT AT THIS TIME. ASSESSMENT COMPLETED. DISCUSSED POC. CALL LIGHT IN REACH. CONTINUE TO MONITOR.
--- NOTE | 2020-06-14 00:32 | NUR ---
PT LAYING IN BED. NO DISTRESS NOTED. NO OTHER NEEDS AT THIS TIME. CALL LIGHT IN REACH. CONTINUE TO MONITOR.
[2020-06-14 03:47] VITALS: BP 148/79
[2020-06-14 05:33] LABS: HEMATOCRIT 49.1 % (39.0-50.0); HEMOGLOBIN 15.5 g/dl (14.0-18.0); IMMATURE GRANULOCYTES 4.3 % (0.0-5.0); MEAN CELL VOLUME 89.6 fL CALC (80.0-100.0); MEAN CORPUSCULAR HGB 28.3 pG CALC (26.0-32.0); MEAN CORPUSCULAR HGB CONC 31.6 g/dL CAL (32.0-36.0); NEUT# 18.87 thou/uL (1.82-7.42); RED BLOOD COUNT 5.48 mill/uL (4.70-6.10); RED CELL DISTRI WIDTH 14.2 % (11.5-15.5)
[2020-06-14 05:42] LABS: ALKALINE PHOSPHATASE 128 u/l (38-126); ANION GAP 16 (6-22 (CALC)); BILIRUBIN, TOTAL 0.6 mg/dL (0.0-1.4); BUN 49 mg/dL (8-23); BUN/CREATININE RATIO 43 (12-20 (CALC)); C-REACTIVE PROTEIN 3.6 mg/dL (0-0.9); CARBON DIOXIDE 19 mmol/l (22-30); CHLORIDE 103 mmol/l (95-108); CREATININE 1.1 mg/dL (0.7-1.3); GFR > 60 ML/MIN (>=60 (CALC)); GFR FOR AFR.AMER. > 60 ML/MIN (>=60 (CALC)); POTASSIUM 5.1 mmol/l (3.5-5.1); SGOT/AST 24 u/l (19-48); SODIUM 132 mmol/l (137-146); TOTAL PROTEIN 6.3 g/dL (6.3-8.2)
[2020-06-14 05:45] LABS: D-DIMER 0.46 mg/L (0.19-0.60)
--- NOTE | 2020-06-14 06:00 | NUR ---
PT SLEEPING IN BED. RESP EVEN AND UNLABORED. CALL LIGHT IN REACH. CONTINUE TO MONITOR.
[2020-06-14 06:13] LABS: INTERNATIONAL NORMALIZED RATIO 2.1 RATIO (0.7-1.3); PROTHROMBIN TIME 20.3 SECONDS (9.0-12.5)
[2020-06-14 15:56] VITALS: BP 124/71
--- NOTE | 2020-06-14 16:27 | NUR ---
Saline-loc removed without incident. Resident being discharged today.
== END 2020-06-14 17:24 | DRG 871 ==
LOC: ED 13:48 → ED-I 15:50 → ED 16:02 → MS2 16:03 → ICU 16:03 → MS2 06-04 21:15
PROVIDERS: Family Medicine; Internal Medicine; Nurse Practitioner; Nurse Practitioner Family; ADMIT Internal Medicine; ATTEND Internal Medicine
DX: A41.89 Other specified sepsis (principal); U07.1 COVID-19; J12.89 Other viral pneumonia; I13.0 Hypertensive heart and chronic kidney disease with heart failure and stage 1 through stage 4 chronic kidney disease, or unspecified chronic kidney disease; I48.21 Permanent atrial fibrillation; E11.22 Type 2 diabetes mellitus with diabetic chronic kidney disease; N18.3 Chronic kidney disease, stage 3 (moderate); I95.9 Hypotension, unspecified; I50.9 Heart failure, unspecified; I25.10 Atherosclerotic heart disease of native coronary artery without angina pectoris; E78.5 Hyperlipidemia, unspecified; G40.909 Epilepsy, unspecified, not intractable, without status epilepticus; I48.91 Unspecified atrial fibrillation; F03.90 Unspecified dementia, unspecified severity, without behavioral disturbance, psychotic disturbance, mood disturbance, and anxiety; Z79.4 Long term (current) use of insulin; Z79.01 Long term (current) use of anticoagulants; Z86.73 Personal history of transient ischemic attack (TIA), and cerebral infarction without residual deficits; Z95.5 Presence of coronary angioplasty implant and graft; Z95.0 Presence of cardiac pacemaker
CPT/HCPCS: G0378; J0692; J3370

== ENCOUNTER 2020-06-18 09:57 | Emergency (ER) | payer MEDICARE, OTHER ==
[~2020-06-18] VITALS: Ht 175.3 cm; Wt 85.0 kg
[~2020-06-18 09:57] MED LIST changes: +JARDIANCE25 MG PO; +MULTI VIT PO; +TRELEGY ELLIPTA1 AER PO; +ZPAK PO
[2020-06-18 10:37] LABS: HEMATOCRIT 47.5 % (39.0-50.0); HEMOGLOBIN 15.2 g/dl (14.0-18.0); IMMATURE GRANULOCYTES 1.4 % (0.0-5.0); MEAN CELL VOLUME 89.8 fL CALC (80.0-100.0); MEAN CORPUSCULAR HGB 28.7 pG CALC (26.0-32.0); NEUT# 15.3 thou/uL (1.82-7.42); RED BLOOD COUNT 5.29 mill/uL (4.70-6.10); RED CELL DISTRI WIDTH 14.8 % (11.5-15.5)
[2020-06-18 10:59] LABS: ALBUMIN 3.3 g/dL (3.2-5.0); BILIRUBIN, TOTAL 0.7 mg/dL (0.0-1.4); POTASSIUM 4.5 mmol/l (3.5-5.1); TOTAL PROTEIN 6.7 g/dL (6.3-8.2)
[2020-06-18 11:01] LABS: ACT PARTIAL THROMBO TIME 41.4 SECONDS (20.0-32.5); CREATININE 2.1 mg/dL (0.7-1.3)
[2020-06-18 11:02] LABS: PROTHROMBIN TIME 37.3 SECONDS (9.0-12.5)
[2020-06-18 11:45] LABS: C-REACTIVE PROTEIN 15.3 mg/dL (0-0.9)
[2020-06-18 14:00] VITALS: BP 106/70
== END 2020-06-18 14:00 ==
LOC: ED 09:57
PROVIDERS: Student in an Organized Health Care Education/Training Program
DX: E86.0 Dehydration (principal); I95.9 Hypotension, unspecified; I48.91 Unspecified atrial fibrillation; I25.10 Atherosclerotic heart disease of native coronary artery without angina pectoris; E11.9 Type 2 diabetes mellitus without complications; I50.9 Heart failure, unspecified; F03.90 Unspecified dementia, unspecified severity, without behavioral disturbance, psychotic disturbance, mood disturbance, and anxiety; Z86.73 Personal history of transient ischemic attack (TIA), and cerebral infarction without residual deficits; Z95.5 Presence of coronary angioplasty implant and graft; Z79.4 Long term (current) use of insulin; Z66 Do not resuscitate; Z95.0 Presence of cardiac pacemaker; Z86.19 Personal history of other infectious and parasitic diseases

== ENCOUNTER 2021-08-23 19:21 | Inpatient (IN) | payer MEDICARE, OTHER ==
[~2021-08-23] VITALS: Ht 172.7 cm; Wt 110.4 kg
[~2021-08-23 19:21] MED LIST changes: +LEVEMIR FL100 UNIT/M SC; -LEVEMIR100 UNIT/M SC; +WARFARIN SODIUM1 MG PO; +WARFARIN3 MG PO
--- NOTE | 2021-08-23 19:22 | NUR ---
BY EMS TO ROOM
[2021-08-23 20:04] LABS: HEMATOCRIT 46.5 % (39.0-50.0); HEMOGLOBIN 14.5 g/dl (14.0-18.0); IMMATURE GRANULOCYTES 0.7 % (0.0-5.0); MEAN CELL VOLUME 94.3 fL CALC (80.0-100.0); MEAN CORPUSCULAR HGB 29.4 pG CALC (26.0-32.0); MEAN CORPUSCULAR HGB CONC 31.2 g/dL CAL (32.0-36.0); NEUT# 8.2 thou/uL (1.82-7.42); RED BLOOD COUNT 4.93 mill/uL (4.70-6.10); RED CELL DISTRI WIDTH 14.7 % (11.5-15.5)
[2021-08-23 20:05] LABS: URINE BILIRUBIN - DIPSTICK NEGATIVE (NEGATIVE); URINE BLOOD DIPSTICK NEGATIVE (NEGATIVE); URINE COLOR YELLOW; URINE GLUCOSE - DIPSTICK NEGATIVE (NEGATIVE); URINE KETONE NEGATIVE (NEGATIVE); URINE LEUK ESTERASE NEGATIVE (NEGATIVE); URINE PROTEIN - DIPSTICK NEGATIVE (NEG-TRACE); URINE UROBILINOGEN - DIPSTICK 0.2 E.U./dL (0.2)
[2021-08-23 20:08] LABS: URINE NITRITE - DIPSTICK NEGATIVE (Negative)
[2021-08-23 20:18] LABS: ALBUMIN 3.8 g/dL (3.2-5.0); ALKALINE PHOSPHATASE 119 u/l (38-126); ANION GAP 12 (6-22 (CALC)); BILIRUBIN, TOTAL 0.5 mg/dL (0.0-1.4); CHLORIDE 97 mmol/l (95-108); CREATININE 1.3 mg/dL (0.7-1.3); GFR 53 ML/MIN (>=60 (CALC)); GFR FOR AFR.AMER. > 60 ML/MIN (>=60 (CALC)); LIPASE 49 u/l (23-300); SGOT/AST 24 u/l (19-48); SODIUM 134 mmol/l (137-146); TOTAL PROTEIN 6.9 g/dL (6.3-8.2)
[2021-08-23 20:19] LABS: BUN 26 mg/dL (8-23); BUN/CREATININE RATIO 20 (12-20 (CALC)); CARBON DIOXIDE 29 mmol/l (22-30)
[2021-08-23 20:20] LABS: ACT PARTIAL THROMBO TIME 36.1 SECONDS (20.0-32.5); INTERNATIONAL NORMALIZED RATIO 2.6 RATIO (0.7-1.3); PROTHROMBIN TIME 25.6 SECONDS (9.0-12.5)
[2021-08-23] MEDS ORDERED: JANUVIA50 MG PO (20:24)
[2021-08-23] MEDS ORDERED: SENNA PLUS 50-81 CAP PO (20:26)
[2021-08-23] MEDS ORDERED: TRULICITY1.5 MG/0.5 SC (20:27)
--- NOTE | 2021-08-23 20:55 | NUR ---
RESTING COMFORTABLY. NAD. NO CHANGE IN EXAM.
--- NOTE | 2021-08-23 21:47 | NUR ---
NO SIGNIFICANT CHANGES NOTED. RESTING QUIETLY AWAITING TEST RESULTS/DISPO
--- NOTE | 2021-08-23 23:00 | NUR ---
AWAITING DISPO. VSS. ANDRADE.
--- NOTE | 2021-08-23 23:13 | NUR ---
UPDATE TO R/HERMINIO.
[2021-08-24] VITALS (7 sets, daily range): BP systolic 134–190; BP diastolic 63–88
--- NOTE | 2021-08-24 00:15 | NUR ---
Admission Note Report Given to: ELMER GUZMÁN Transported by: Wheelchair X Stretcher Transported with: X Nurse Transporter X Patent IV O2 X Switch Box Installer Location: ICU X MS2
--- NOTE | 2021-08-24 01:27 | NUR ---
PATIENT ADMITTED FROM ER VIA STRETCHER WITH ER STAFF IN ATTENDANCE. PATIENT IS MAX ASSIST TO TRANSFER FROM STRETCHER TO BED. PATIENT IS ADMITTED FOR GI BLEED. PATIENT IS AWAKE ALERT AND ORIENTEDX2. FROM DHR-HX OF SEIZURES AND DEMENTIA. SIDERAILS ARE PADDED. PATIENT IS ORIENTED TO PERSON AND PLACE ONLY. DENIES ANY PAIN AT THIS TIME. STATES THAT HE IS WHEELCHAIR BOUND AND HASN'T WALKED IN A LONG TIME. FEEL ARE COLD TO TOUCH WITH VERY FAINT PULSES. AND IS LARGE WITH ACTIVE BS. LAST BM WAS SUNDAY. ANDERSEN CATH IN PLACE-DRAINING YELLOW URINE-INSERTED IN ER TONIGHT. TELE MONITOR IN PLACE WITH LAST READING PACED-60. IV SITE TO LEFT HAND INTACT AND IVF NS HUNG AND INFUSING AT 125CC/HR. PATIENT IS CURRENTLY NPO. ORIENTED TO ROOM AND SURROUNDINGS. INSTRUCTED PATIENT ON USE OF NURSE CALL LIGHT SYSTEM AND TV REMOTE. SAFETY PRECAUTIONS REINFORCED. CALL LIGHT IN REACH. WILL CONT TO MONITOR.
--- NOTE | 2021-08-24 04:21 | NUR ---
PATIENT RESTING IN BED AT THIS TIME WITH EYES CLOSED. RESPS ARE EVEN AND UNLABORED. TELE MONITOR IN PLACE-LAST READING WAS PACED-62. IVF NS PATENT AND INFUSING VIA LEFT SITE AT 125CC/HR. ANDERSEN PATENT AND DRAINING YELLOW URINE. CALL LIGHT IN REACH. WILL CONT TO MONITOR.
[2021-08-24 05:18] LABS: HEMATOCRIT 40.9 % (39.0-50.0); HEMOGLOBIN 13.3 g/dl (14.0-18.0); IMMATURE GRANULOCYTES 0.3 % (0.0-5.0); MEAN CELL VOLUME 92.5 fL CALC (80.0-100.0); MEAN CORPUSCULAR HGB 30.1 pG CALC (26.0-32.0); MEAN CORPUSCULAR HGB CONC 32.5 g/dL CAL (32.0-36.0); NEUT# 7.18 thou/uL (1.82-7.42); RED BLOOD COUNT 4.42 mill/uL (4.70-6.10); RED CELL DISTRI WIDTH 14.8 % (11.5-15.5)
[2021-08-24 05:30] LABS: INTERNATIONAL NORMALIZED RATIO 2.6 RATIO (0.7-1.3); PROTHROMBIN TIME 25.7 SECONDS (9.0-12.5)
[2021-08-24 05:34] LABS: ALKALINE PHOSPHATASE 102 u/l (38-126); ANION GAP 12 (6-22 (CALC)); BILIRUBIN, TOTAL 0.5 mg/dL (0.0-1.4); BUN 24 mg/dL (8-23); BUN/CREATININE RATIO 20 (12-20 (CALC)); CARBON DIOXIDE 27 mmol/l (22-30); CHLORIDE 103 mmol/l (95-108); CREATININE 1.2 mg/dL (0.7-1.3); GFR 58 ML/MIN (>=60 (CALC)); GFR FOR AFR.AMER. > 60 ML/MIN (>=60 (CALC)); POTASSIUM 4.7 mmol/l (3.5-5.1); SGOT/AST 21 u/l (19-48); SODIUM 137 mmol/l (137-146); TOTAL PROTEIN 5.7 g/dL (6.3-8.2)
--- NOTE | 2021-08-24 07:58 | NUR ---
REPORT RECEIVED FROM ELMER GUZMÁN. PT RESTING IN BED SEMI FOWLERS; ALERT AND ORIENTED TO PERSON AND PLACE. DENIES PAIN; RESPIRATIONS EVEN AND UNLABORED ON ROOM AIR. INCONTINENT OF LARGE LOOSE YASH RED BLOODY STOOL; DENIES ANY SYMPTOMS AND STATES, "I FEEL GREAT." IV FLUIDS INFUSING WITHOUT DIFFICULTY; IV SITE APPEARS HEALTHY. TELE ON. ANDERSEN CATHETER DRAINING CLEAR, YELLOW URINE TO GRAVITY. POC REVIEWED; PT ENCOURAGED TO VERBALIZE CONCERNS; STATES UNDERSTANDING; WARM BLANKET PROVIDED. SAFETY MEASURES IN PLACE; CALL LIGHT WITHIN REACH.
--- NOTE | 2021-08-24 08:49 | NUR ---
DR. NESS AND BARRY LAM AT BEDSIDE.
[2021-08-24 10:34] LABS: HEMOGLOBIN 13.1 g/dl (14.0-18.0)
--- NOTE | 2021-08-24 11:06 | NUR ---
EMS IV SITE DISLODGED; NEW SITE PLACED TO LFA; IV FLUIDS NOW INFUSING AT KVO. PHYTONADIONE ALSO INFUSING TO ASSIST WITH BLOOD CLOTTING. PT HAVING MULTIPLE INCONTINENT EPISODES OF BLOODY DISCHARGE FROM RECTUM WITH FOUL ODOR. WILL CONTINUE TO MONITOR.
[2021-08-24] MEDS ORDERED: TYLENOL325 M2 PO (12:18)
[2021-08-24] MEDS ORDERED: MILK OF MAG30 ML/UDC PO (12:19)
[2021-08-24 13:58] LABS: HEMATOCRIT 40.2 % (39.0-50.0); HEMOGLOBIN 12.9 g/dl (14.0-18.0)
--- NOTE | 2021-08-24 15:09 | NUR ---
FREQUENCY OF BLOODY STOOLS HAVE IMPROVED; PT HAD LARGE STOOL WITH LARGE CLOTS AT THIS TIME. BEGAN BOWEL PREP WITH NULYTELY.
--- NOTE | 2021-08-24 16:30 | NUR ---
WITH PATIENT CONSENT AND VERIFICATION FROM DR. LEWIS RECTAL TUBE WAS PLACED FOR PATIENT COMFORT AND SKIN INTEGRITY. WATERY BLOODY STOOLS WITH CLOTS SEEN IN RECTAL TUBE. PT'S BLOOD PRESSURE IS ELEVATED AT THIS TIME. WILL CONTINUE TO MONITOR.
--- NOTE | 2021-08-24 20:45 | NUR ---
PT RESTING IN BED, NO SIGNS OF DISTRESS NOTED, RESP EVEN AND UNLABORED. PT ALERT AND ORIENTED X2, DISCUSSED POC, PT VERBALIZED UNDERSTANDING. PT HAS A RECTAL TUBE DRAINING TO GRAVITY NOTED MAROON COLORED LOOSE STOOL IN BAG, SOME STOOL DRAINING AROUND TUBING. PT DENIES ANY PAIN OR DISCOMFORT AT THIS TIME. JULISSA CARE PROVIDED, BARRIER CREAM TO BUTTOCK TO REDDENED AREA. ANDERSEN DRAINING TO GRAVITY, CLEAR YELLOW. NOTED EDEMA TO BLE. MORTEZA AT BEDSIDE ENCOURAGED PT TO CONTINUE TO DRINK, ASSESSMENT COMPLETED, PT MEDICATED PER MAR. CALL LIGHT IN REACH,CONTINUE TO MONITOR.
[2021-08-25] VITALS (13 sets, daily range): BP systolic 104–198; BP diastolic 61–96
--- NOTE | 2021-08-25 | NUR ---
PT RESTING IN BED, HALF OF THE NULYTLEY DRANK PT CONTINUES TO HAVE LIQUID MAROON STOOLS, NPO AT THIS TIME, PT VOICES NO NEEDS OR COMPLAINTS AT THIS TIME, CALL LIGHT IN REACH,CONTINUE TO MONITOR.
[2021-08-25 00:28] LABS: HEMATOCRIT 37.9 % (39.0-50.0); HEMOGLOBIN 12.3 g/dl (14.0-18.0)
--- NOTE | 2021-08-25 04:00 | NUR ---
PT RESTING IN BED WITH EYES CLOSED, NO SIGNS OF DISTRESS NOTED, RESP EVEN AND UNLABORED. CALL LIGHT IN REACH,CONTINUE TO MONITOR.
[2021-08-25 04:45] LABS: HEMATOCRIT 36.3 % (39.0-50.0); HEMOGLOBIN 11.8 g/dl (14.0-18.0); MEAN CELL VOLUME 91.9 fL CALC (80.0-100.0); MEAN CORPUSCULAR HGB 29.9 pG CALC (26.0-32.0); MEAN CORPUSCULAR HGB CONC 32.5 g/dL CAL (32.0-36.0); RED BLOOD COUNT 3.95 mill/uL (4.70-6.10); RED CELL DISTRI WIDTH 14.8 % (11.5-15.5)
[2021-08-25 05:05] LABS: BUN 19 mg/dL (8-23); BUN/CREATININE RATIO 19 (12-20 (CALC)); CARBON DIOXIDE 23 mmol/l (22-30); CHLORIDE 107 mmol/l (95-108); GFR > 60 ML/MIN (>=60 (CALC)); GFR FOR AFR.AMER. > 60 ML/MIN (>=60 (CALC)); MAGNESIUM 1.5 mg/dL (1.6-2.3); POTASSIUM 4.6 mmol/l (3.5-5.1)
[2021-08-25 05:07] LABS: ANION GAP 11 (6-22 (CALC)); SODIUM 136 mmol/l (137-146)
[2021-08-25 05:22] LABS: INTERNATIONAL NORMALIZED RATIO 1.2 RATIO (0.7-1.3); PROTHROMBIN TIME 12.3 SECONDS (9.0-12.5)
--- NOTE | 2021-08-25 05:43 | NUR ---
PATIENT CLEANED UP OF MAROON (BLOODY) LIQUID STOOL.
--- NOTE | 2021-08-25 07:45 | NUR ---
PT LYING IN BED AWAKE. ASSESSMENT PERFORMED. NO COMPLAINTS/DISTRESS AT THIS TIME. WILL CONTINUE TO MONITOR.
--- NOTE | 2021-08-25 16:50 | NUR ---
PT REORIENTED TO ROOM. NO COMPLAINTS AT THIS TIME. BEDSIDE REPORT RECEIVED. WILL CONTINUE TO MONITOR.
[2021-08-25 17:10] LABS: C. DIFFICILE TOXIN A&B NEGATIVE (NEGATIVE)
--- NOTE | 2021-08-25 18:40 | NUR ---
REPORT RECEIVED FROM Letha ABBASI RN.
--- NOTE | 2021-08-25 19:10 | NUR ---
ALERTS AND ORIENTED X3, FORGETFULL AT TIMES. LAST TELEMETRY READING PACED AT 64 BPM. CLEAR LUNG SOUNDS THROUGHOUT BILATERAL LUNGS. ACTIVE BOWEL SOUNDS, LAST REPORTED BOWEL MOVEMENT TODAY 08/25. ANDERSEN FRAINING CLEAR EZEKIEL URINE TO GRAVITY. #20 IN THE LAC WITH IVF AT [facility]. CARE PLAN REVIEWED WITH PATIENT, ORIENTED TO CALL SYSTEM, CALL LIGHT AND BEDSIDE TABLE WITHIN REACH.
[2021-08-26] VITALS (15 sets, daily range): BP systolic 80–179; BP diastolic 42–77
--- NOTE | 2021-08-26 | NUR ---
FULL BED BATH COMPELTETED AT THIS TIME. NO APPRENT NEEDS APARENT/VOIVED BY PATIENT. CALL LIGHT AND BEDSIDE TABLE WTIHIN REACH.
--- NOTE | 2021-08-26 03:51 | NUR ---
PATIENT PROVIDED WITH BALNKETS PER REQUEST. CLEANED UP BY MONEY ROOM TELLER PRIOR TO. CALL LIGHT AND BEDSIDE TABLE WITHIN REACH.
[2021-08-26 04:40] LABS: HEMATOCRIT 35.7 % (39.0-50.0); HEMOGLOBIN 11.8 g/dl (14.0-18.0); MEAN CELL VOLUME 91.5 fL CALC (80.0-100.0); MEAN CORPUSCULAR HGB 30.3 pG CALC (26.0-32.0); MEAN CORPUSCULAR HGB CONC 33.1 g/dL CAL (32.0-36.0); RED BLOOD COUNT 3.9 mill/uL (4.70-6.10); RED CELL DISTRI WIDTH 14.9 % (11.5-15.5)
[2021-08-26 04:57] LABS: ANION GAP 12 (6-22 (CALC)); BUN 11 mg/dL (8-23); BUN/CREATININE RATIO 13 (12-20 (CALC)); CARBON DIOXIDE 21 mmol/l (22-30); CHLORIDE 108 mmol/l (95-108); CREATININE 0.9 mg/dL (0.7-1.3); GFR > 60 ML/MIN (>=60 (CALC)); GFR FOR AFR.AMER. > 60 ML/MIN (>=60 (CALC)); SODIUM 137 mmol/l (137-146)
--- NOTE | 2021-08-26 07:19 | NUR ---
REPORT RECEIVED FROM ELMER LIAO. PT AWAKE ALERT AND APPROPRIATE. DENIES PAIN, SOB OR DISCOMFORT. GIVEN ONE UNIT OF INSULIN FOR 176. PT CALL LIGHT WITHIN REACH. POC, AND ADL'S DISCUSSED PT STATES UNDERSTANDING. INSTRUCTED PT TO CALL FOR ASSISTANCE, VERBALIZES UNDERSTANDING.
--- NOTE | 2021-08-26 08:45 | NUR ---
PT GIVEN PO COZAAR AT THIS TIME, GAZE BECAME HAZEY, AND PT BEGAN TO HAVE MILD TREMORS WITH REDDENING OF FACE. ASSISTANCE FOR HELP INITIATED. MD ON FLOOR TO WITNESS POSSIBLE SEIZURE ACTIVITY. VSS, SUPPORTIVE NURSING CARE GIVEN. SUCTION PROVIDED. STAT CHEST XRAY ORDERED TO R/O POSSIBLE ASPIRATION. IV ATIVAN GIVEN ORDERED WITH LOADING DOSE OF IV KEPPRA ORDERED. 901. PT IS NOW POST ICTAL, VS REMAIN STABLE. XRAY IN ROOM. PT HAD LOOSE LIQUID BROWN BM.
--- NOTE | 2021-08-26 10:16 | NUR ---
PT BP CONTINUES TO BE LOW 80/42. DUSTING, CLIENT ENGAGEMENT MANAGER AWARE OF PERSISTANT HYPOTENSION. WILL CONTINUE TO MONITOR VS Q15 MINUTES, 500CC BOLUS INFUSING. IF BP DOES NOT REACH ABOVE 90 SBP, WILL INITIATE TRANSFER TO ICU. PT AROUSABLE TO VERBAL STIMULATION. REACHING OUT TO HOLD HAND. UNDERSTANDS THAT HE HAS HAD A SEIZURE. DENIES PAIN, SOB OR DISCOMFORT. WILL CONTINUE TO MONITOR CLOSELY.
--- NOTE | 2021-08-26 12:53 | NUR ---
PATIENT WENT FROM PACED RHYTHM OF 60 AND KEEGAN DOWN TO 41. RAPID RESPONSE CALLED.
--- NOTE | 2021-08-26 13:05 | NUR ---
CHARGE NURSE ELMER CHILEL FROM ER DEPARTMENT IN ROOM TO INTERROGATE PACEMAKER. PT ADMITS TO FEELING "STABS TO HIS CHEST" PT VSS, DENIES ANY FURTHER CHEST PAIN. CONTENT PRODUCER READING PACED AT HR 60.
--- NOTE | 2021-08-26 13:15 | NUR ---
CALLED SPOKE WITH MD PATIENT TO REMAIN IN ROOM. EXPLAINED REPORT FROM PACEMAKER REPORT. MD ACKNOWLEDGED AND WILL FOLLOW UP WITH PATIENT.
--- NOTE | 2021-08-26 14:00 | NUR ---
PT ABLE TO TAKE SCHEDULED MEDICATIONS THIS TIME. DENIES PAIN, SOB OR DISCOMFORT. DENIES ANY MORE "STABBING SENSATIONS TO THE CHEST" WILL CONTINUE TO MONITOR CLOSELY.
--- NOTE | 2021-08-26 16:00 | NUR ---
PT RESTING WITH EYES CLOSED. VSS. CALL LIGHT WITHIN REACH. AWAKENS TO LIGHT VERBAL STIMULATION. DENIES PAIN. WILL CONTINUE TO MONITOR.
--- NOTE | 2021-08-26 19:26 | NUR ---
PATIENT ALERT AND ORIENTED. ABLE TO MAKE NEEDS KNOWN. ASSESSMENT COMPLETE AT THIS TIME. DENIES ANY PAIN OR DISTRESS. BED REMAIN IN LOW POSITION. CALL LIGHT AND BELONGINGS REMAIN IN REACH.
--- NOTE | 2021-08-27 | NUR ---
PATIENT RESTING IN BED QUIETLY. NO COMPLAINTS VOICED AT THIS TIME. CALL LIGHT AND BELONGINGS REMAIN IN REACH.
[2021-08-27 03:45] VITALS: BP 159/86
--- NOTE | 2021-08-27 04:02 | NUR ---
RESTING IN BED QUIETLY. NO COMPLAINTS VOICED AT THIS TIME. CALL LIGHT AND BELONGINGS REMAIN IN REACH.
[2021-08-27 07:37] VITALS: BP 158/77
--- NOTE | 2021-08-27 08:17 | NUR ---
SHIFT CHANGE REPORT, PT SLEEPING BUT AWAKENED TO VERBAL AND TACTILE STIMULI, ORIENTED TO PERSON AND PLACE, DENIES PAIN/DISCOMFORT, IVF 0.9 NS INFUSING @ KVO TO SITE IN LAC, TELE MONITOR IN PLACE, ANDERSEN CATETER IN PLACE DRAINING EZEKIEL URINE, CALL HANKINS IN REACH AND BED LOCKED IN LOWST POSITION. ASSISTED WITH SET-UP FOR MEAL.
[2021-08-27 10:18] VITALS: BP 135/77
--- NOTE | 2021-08-27 12:04 | NUR ---
ASSISTED WITH SET-UP FOR MEAL, ALL NEEDS MET/ADDRESSED, NO C/O DISCOMFORT, WILL CONTINUE TO MONITOR.
[2021-08-27 14:57] LABS: INTERNATIONAL NORMALIZED RATIO 1.1 RATIO (0.7-1.3); PROTHROMBIN TIME 11.3 SECONDS (9.0-12.5)
--- NOTE | 2021-08-27 15:34 | NUR ---
RESTING IN SUPINE POSITION WATCHING TV, LIQUIDS OFFERED, NO C/O DISCOMFORT, CALL HANKINS IN REACH.
[2021-08-27 15:44] VITALS: BP 122/70
[2021-08-27 19:06] VITALS: BP 152/78
--- NOTE | 2021-08-27 19:14 | NUR ---
NURSE CALLED DR HAWKINS TO GET JUAN ORDERED FOR PT, NO ANSWER, MESSAGE LEFT TO CALL UNIT FOR ORDER.
--- NOTE | 2021-08-27 19:58 | NUR ---
PATIENT RESTING IN BED AT THIS TIME-AWAKE ALERT AND ORIENTED TO PERSON AND PLACE. TELE MONITOR IN PLACE-LAST READING WAS PACED. ANDERSEN PATENT AND DRAINING EZEKIEL URINE. IVF NS PATENT AND INFUSING VIA LAC SITE AT KVO RATE. SPOKE TO DR. HAWKINS AND WILL RESTART KEPPRA 1000 MG PO TONIGHT. SIDERAILS ARE PADDED AND SEIZURE PRECAUTIONS IN PLACE. SAFETY PRECAUTIONS REINFORCED.CALL LIGHT IN REACH. WILL CONT TO MONITOR.
--- NOTE | 2021-08-27 23:32 | NUR ---
PATIENT RESTING IN BED AT THIS TIME WITH EYES CLOSED, RESPS ARE EVEN AND UNLABORED, IVF PATENT AND INFUSING VIA LAC SITE AT KVO RATE. ANDERSEN PATENT AND DRAING EZEKIEL URINE. TELE MONITOR IN PLACE. NCALL LIGHT IN REACH. WILL CONT TO MONITOR.
[2021-08-28] VITALS (7 sets, daily range): BP systolic 144–170; BP diastolic 73–97
--- NOTE | 2021-08-28 03:23 | NUR ---
PATIENT RESTING IN BED AT THIS TIME WITH EYES CLOSED. RESPS ARE EVEN AND UNLABORED. IVF PATIENT AND INFUSING VIA LAC SITE AT KVO RATE. ANDERSEN PATENT ANDDRAINING EZEKIEL URINE. TELE MONITOR IN PLACE LAST READING WAS PACED. CALL LIGHT IN REACH. WILL CONT TO MONITOR.
[2021-08-28 04:52] LABS: HEMATOCRIT 33.1 % (39.0-50.0); IMMATURE GRANULOCYTES 0.4 % (0.0-5.0); MEAN CELL VOLUME 92.7 fL CALC (80.0-100.0); MEAN CORPUSCULAR HGB 30.8 pG CALC (26.0-32.0); MEAN CORPUSCULAR HGB CONC 33.2 g/dL CAL (32.0-36.0); NEUT# 4.96 thou/uL (1.82-7.42); RED BLOOD COUNT 3.57 mill/uL (4.70-6.10); RED CELL DISTRI WIDTH 15.5 % (11.5-15.5)
[2021-08-28 04:57] LABS: INTERNATIONAL NORMALIZED RATIO 1.1 RATIO (0.7-1.3)
[2021-08-28 05:04] LABS: ALBUMIN 2.9 g/dL (3.2-5.0); ALKALINE PHOSPHATASE 101 u/l (38-126); ANION GAP 10 (6-22 (CALC)); BILIRUBIN, TOTAL 0.5 mg/dL (0.0-1.4); BUN 12 mg/dL (8-23); BUN/CREATININE RATIO 10 (12-20 (CALC)); CARBON DIOXIDE 22 mmol/l (22-30); CHLORIDE 109 mmol/l (95-108); CREATININE 1.2 mg/dL (0.7-1.3); GFR 58 ML/MIN (>=60 (CALC)); GFR FOR AFR.AMER. > 60 ML/MIN (>=60 (CALC)); POTASSIUM 3.9 mmol/l (3.5-5.1); SGOT/AST 29 u/l (19-48); SODIUM 138 mmol/l (137-146); TOTAL PROTEIN 5.5 g/dL (6.3-8.2)
--- NOTE | 2021-08-28 07:32 | NUR ---
SHIFT CHANGE REPORT, PT AWAKE AND ALERT, STATED HE DIDNT HAVE A GOOD NIGHT DUE TO INTERRUPTIONS, DENIES PAIN/DISCOMFORT, TELE MONITOR IN PLACE, ANDERSEN CATHETER IN PLACE DRAINING LIGHT EZEKIEL URINE, CALL HANKINS IN REACH AND BED LOCKED IN LOWEST POSITION.
--- NOTE | 2021-08-28 10:17 | NUR ---
ROUNDED, ORDERED TO REMOVE ANDERSEN CATHETER, CATHETER REMOVED @ 1015, AFTER INFORMING PT OF PROCEDURE AND HE STATED UNDERSTANDING. PROCEDURE WENT WELL AND PT TOLERATED WELL, OUTPUT OF 500ML CLEAR EZEKIEL URINE RECORDED IN I&O INVENTION.
--- NOTE | 2021-08-28 12:00 | NUR ---
RESTING QUIETLY AND WATCHING TV, QUESTIONS WHTHER HE IS GOING BACK TO REHAB TODAY BUT ADVISED MD HAS NOT ORDERED D/C PLANS YET, ALL OTHER NEEDS ADDRESSED.
--- NOTE | 2021-08-28 16:00 | NUR ---
NO NEW COMPLAIN, JUST RESTING AND WATCHING TV, CALL HANKINS IN REACH.
--- NOTE | 2021-08-28 19:15 | NUR ---
PATIENT RESTING IN BED WITH HOB SLIGHTLY ELEVATED AND EYES ARE CLOSED. RESPS ARE EVEN AND UNLABORED. IVF NS PATENT AND INFUSING VIA LAC SITE AT KVO RATE. TELE MONITOR IN PLACE WITH LAST READING PACED IN LOW 60'S. CALL LIGHT IN REACH. WOLL CONT TO MONITOR.
--- NOTE | 2021-08-28 21:00 | NUR ---
ACCU-CHECK WAS 215. COVERED WITH HUMALOG 3 UNITS SQ PER SLIDING SCALE COVERAGE PROTOCOL. HS SNACK PROVIDED. PATIENT DID VOID 50CC OF EZEKIEL URINE IN URINAL. CALL LIGHT IN REACH. WILL CONT TO MONITOR.
--- NOTE | 2021-08-28 23:14 | NUR ---
RECIEVED CALL FROM FLORENCE IN ER-STATED THAT PATIENT HAD 17BEAT RUN OF V-TACH. PATIENT RESTING IN BED AT THIS TIME-NO COMPLAINTS OF CHEST PAIN, PALPATATIONS, OR SOB. VS TAKEN-166/78, HR-71, R-18. O2 SAT IS 96% ON ROOM AIR. RT IS HERE NOW FOR EKG. TELE MONITOR STATES THAT THE PATIENT IS NOW BACK PACED. WILL CONT TO MONITOR.
--- NOTE | 2021-08-29 00:22 | NUR ---
PATIENT RESTING IN BED WITH HOB SLIGHTLY ELEVATED AND EYES CLOSED. RESPS ARE EVEN AND UNLABORED. TELE MONITOR IN PLACE. IVF PATENT AND INFUSING AT KVO RATE. CALL LIGHT IN REACH.WILL CONT TO MONITOR.
--- NOTE | 2021-08-29 03:55 | NUR ---
PATIENT RESTING IN BED-INCONT OF MODERATE AMT OF URINE AND SCANT AMT OF BROWN STOOL.PATIENT PROVIDED WITH PERICARE WITH SOAP AND WATER AND BARIER CREAM APPLIED. PADS WERE CHANGED AND PATIENT WAS REPOSITIONED. TELE MONITOR IN PLACE-HR DOES GO UP DURING ACTIVITY AND THEN BACK DOWN DURING REST. IVF REMAINS AT KVO RATE VIA LAC SITE. PATIENT WILL PROBALY BE DISCHARGED BACK TO [facility] TODAY. SAFETY PRECAUTIONS REINFORCED. CALL LIGHT IN RECH. WIOLL CONT TO MONITOR.
[2021-08-29 04:00] VITALS: BP 153/70
[2021-08-29 04:56] LABS: HEMATOCRIT 33.4 % (39.0-50.0); HEMOGLOBIN 10.9 g/dl (14.0-18.0); MEAN CORPUSCULAR HGB 30.4 pG CALC (26.0-32.0); MEAN CORPUSCULAR HGB CONC 32.6 g/dL CAL (32.0-36.0); RED BLOOD COUNT 3.59 mill/uL (4.70-6.10); RED CELL DISTRI WIDTH 15.6 % (11.5-15.5)
[2021-08-29 05:13] LABS: INTERNATIONAL NORMALIZED RATIO 1.3 RATIO (0.7-1.3); PROTHROMBIN TIME 13.6 SECONDS (9.0-12.5)
[2021-08-29 05:20] LABS: ANION GAP 12 (6-22 (CALC)); BUN 13 mg/dL (8-23); BUN/CREATININE RATIO 12 (12-20 (CALC)); CARBON DIOXIDE 20 mmol/l (22-30); CHLORIDE 112 mmol/l (95-108); CREATININE 1.1 mg/dL (0.7-1.3); GFR > 60 ML/MIN (>=60 (CALC)); GFR FOR AFR.AMER. > 60 ML/MIN (>=60 (CALC)); MAGNESIUM 1.6 mg/dL (1.6-2.3); POTASSIUM 4.1 mmol/l (3.5-5.1); SODIUM 139 mmol/l (137-146)
--- NOTE | 2021-08-29 07:00 | NUR ---
RECIEVED REPORT FROM ELMER GUZMÁN
--- NOTE | 2021-08-29 07:00 | NUR ---
RECIEVED REPORT FROM ELMER BREEN
[2021-08-29 07:49] VITALS: BP 193/99
--- NOTE | 2021-08-29 07:49 | NUR ---
PT RESTING IN SEMI FOLWERS POSITION. PT IS A/O X2 ASSESSMENT AND VITALS COMPLETED. 193/99, HR 64, O2 98% ON ROOM AIR. RESPIRATIONS ARE SHALLOW. EXPIRATORY WHEEZING NOTED. PT DENIES OF ANY DISTRESS. HERAT RHYTHM NORMAL WITH TELE IN PLACE. PACE PER ER MONITORING. BOWEL SOUNDS ARE ACTIVE X4 QUADRANTS. #20G LAC INFUSING WITH IVF PER ORDER, SITE REMAINS HELAHTY AND PATENT. SKIN INTACT. 1+ EDEMA NOTED TO BLE. PT DENIES OF ANY PAINS OR DISCOMFORTS AT THIS TIME. ACCUCHECK RESULTING IN 180, COVERAGE ADINISTERED. MORNIING MEDICATIONS ADMINISTERED. PT TOLERATED WELL. PT ASSISTED WITH BREAKFAST TRAY. PT DENIES OF ANY ADDITIONAL NEEDS. ALL SFATEY PRECAUTIONS ARE IN PLACE WITH CALL LIGHT IN REACH. WILL CONTINUE TO MONITOR
[2021-08-29 10:13] VITALS: BP 164/75
--- NOTE | 2021-08-29 10:22 | NUR ---
DR FLORES AT BEDSIDE
--- NOTE | 2021-08-29 10:28 | NUR ---
REASSESSMENT OF BP RESULTING IN 164/75, HR 59
--- NOTE | 2021-08-29 11:52 | NUR ---
PT SITTING IN HIGH FOLWERS POSITION EATING LUNCH. RESPIRATIONS ARE EVEN AND UNLABORED WITH NO DISTRESS NOTED. #20G LAC INFUSING IWTH IVF PER ORDER, SITE REMAINS HEALTHY AND PATENT. TELE MONITORING IN PLACE. PT DENIES OF ANY PAINS OR DISCOMFORTS AT THIS TIME. PT INFORMED OF DC TO [facility] AT 1400. PT VERBALIZED UNDERSTANDING. ALL SAFTEY PRECAUTIONS ARE IN PLACE WITH CALL LIGHT IN REACH. WILL CONTINUE TO MONITOR
[2021-08-29] MEDS ORDERED: PANTOPRAZOLE SO40 M1 PO (11:54)
[2021-08-29] MEDS ORDERED: ENOXAPARIN100 MG/ML SC (11:59)
--- NOTE | 2021-08-29 14:30 | NUR ---
PT EDUCATED ON DC INSTRUCTIONS AND NEW MEDICATIONS. PT VERBLAIZED UNDERSTANDING. KELIN RN TO WITNESS. IV REMOVED WITH CATH STILL INTACT. TELE MONITORING REMOVED. ER INFORMED
--- NOTE | 2021-08-29 14:37 | NUR ---
REPORT CALLED TO RN AT [facility].
--- NOTE | 2021-08-29 14:38 | NUR ---
Discharge instructions given. Patient verbalizes understanding of same. Discharged in stable condition via [facility] to [facility] with . All belongings sent with pt. PT DC TO R VIA WHEELCHAIR ACCOMPAINED BY FACILITY SOFTWARE LICENSING SPECIALIST IN STABLE CONDITION WITH ALL DC INSTRUCTIONS AND PERSONAL BELONINGS.
== END 2021-08-29 14:30 | DRG 378 ==
LOC: ED 19:21 → ED-I 22:15 → ED 23:05 → MS2 23:06
PROVIDERS: Hospitalist; Internal Medicine; Nurse Practitioner; ADMIT Internal Medicine; ATTEND Internal Medicine
PROC: 0T9B70Z Drainage of Bladder with Drainage Device, Via Natural or Artificial Opening (ICD-10-PCS; 2021-08-23)
PROC: 0DJ08ZZ Inspection of Upper Intestinal Tract, Via Natural or Artificial Opening Endoscopic (ICD-10-PCS; principal; 2021-08-25)
PROC: 0DBL8ZX Excision of Transverse Colon, Via Natural or Artificial Opening Endoscopic, Diagnostic (ICD-10-PCS; 2021-08-25)
DX: K92.1 Melena (principal); I13.0 Hypertensive heart and chronic kidney disease with heart failure and stage 1 through stage 4 chronic kidney disease, or unspecified chronic kidney disease; E87.2 Acidosis; I42.9 Cardiomyopathy, unspecified; I48.20 Chronic atrial fibrillation, unspecified; K57.30 Diverticulosis of large intestine without perforation or abscess without bleeding; D12.3 Benign neoplasm of transverse colon; E11.22 Type 2 diabetes mellitus with diabetic chronic kidney disease; N18.30 Chronic kidney disease, stage 3 unspecified; I50.9 Heart failure, unspecified; I25.10 Atherosclerotic heart disease of native coronary artery without angina pectoris; J44.9 Chronic obstructive pulmonary disease, unspecified; G40.909 Epilepsy, unspecified, not intractable, without status epilepticus; E78.5 Hyperlipidemia, unspecified; F03.90 Unspecified dementia, unspecified severity, without behavioral disturbance, psychotic disturbance, mood disturbance, and anxiety; Z86.73 Personal history of transient ischemic attack (TIA), and cerebral infarction without residual deficits; Z79.4 Long term (current) use of insulin; Z95.0 Presence of cardiac pacemaker; Z95.5 Presence of coronary angioplasty implant and graft; Z79.01 Long term (current) use of anticoagulants; Z20.822 Contact with and (suspected) exposure to COVID-19
CPT/HCPCS: G0378; J1650; J1953; J2060; J3475; Q9967; S0164

== ENCOUNTER 2022-04-26 05:57 | Observation (INO) | payer MEDICARE, OTHER ==
[~2022-04-26] VITALS: Ht 172.7 cm; Wt 103.1 kg
[~2022-04-26 05:57] MED LIST changes: -LOSARTAN POT50 MG PO; +LOSARTAN POTASS25 MG PO; +PANTOPRAZOLE SO40 M1 PO; +SENNA PLUS 50-81 CAP PO; +TRULICITY1.5 MG/0.5 SC; +TYLENOL325 M2 PO
[2022-04-26 07:23] LABS: HEMOGLOBIN 12.5 g/dl (14.0-18.0); IMMATURE GRANULOCYTES 0.4 % (0.0-5.0); MEAN CORPUSCULAR HGB 25.9 pG CALC (26.0-32.0); MEAN CORPUSCULAR HGB CONC 30.4 g/dL CAL (32.0-36.0); NEUT# 6.23 thou/uL (1.82-7.42); RED BLOOD COUNT 4.82 mill/uL (4.70-6.10); RED CELL DISTRI WIDTH 16.6 % (11.5-15.5)
[2022-04-26 07:25] LABS: HEMATOCRIT 41.1 % (39.0-50.0); MEAN CELL VOLUME 85.3 fL CALC (80.0-100.0)
[2022-04-26 08:03] LABS: ALKALINE PHOSPHATASE 132 u/l (38-126); BILIRUBIN, TOTAL 0.3 mg/dL (0.0-1.4); BUN 12 mg/dL (8-23); BUN/CREATININE RATIO 12 (12-20 (CALC)); CHLORIDE 100 mmol/l (95-108); GFR FOR AFR.AMER. > 60 ML/MIN (>=60 (CALC)); GFR OTHER RACES > 60 ML/MIN (>=60 (CALC)); SGOT/AST 18 u/l (19-48); SODIUM 139 mmol/l (137-146); TOTAL PROTEIN 6.4 g/dL (6.3-8.2)
[2022-04-26 08:11] LABS: ALBUMIN 3.5 g/dL (3.2-5.0); ANION GAP 9 (6-22 (CALC)); CARBON DIOXIDE 33 mmol/l (22-30); POTASSIUM 3.1 mmol/l (3.5-5.1)
[2022-04-26 08:15] LABS: MYOGLOBIN 60 ng/mL (0 - 121)
[2022-04-26 08:17] LABS: PROTHROMBIN TIME 47.1 SECONDS (9.0-12.5)
[2022-04-26 11:04] LABS: URINE BILIRUBIN - DIPSTICK NEGATIVE (NEGATIVE); URINE BLOOD DIPSTICK TRACE-INTACT (NEGATIVE); URINE COLOR YELLOW; URINE GLUCOSE - DIPSTICK NEGATIVE (NEGATIVE); URINE KETONE NEGATIVE (NEGATIVE); URINE PROTEIN - DIPSTICK NEGATIVE (NEG-TRACE)
[2022-04-26 11:06] LABS: URINE LEUK ESTERASE LARGE (NEGATIVE); URINE NITRITE - DIPSTICK POSITIVE (Negative)
[2022-04-26 11:13] LABS: URINE BACTERIA MANY hpf; URINE WBC >100 WBC/hpf (0-5)
[2022-04-26 12:26] VITALS: BP 120/48
[2022-04-26] MEDS ORDERED: WARFARIN4 MG PO (13:38)
[2022-04-26] MEDS ORDERED: OMEPRAZOLE DR40 MG PO (13:41)
[2022-04-26] MEDS ORDERED: TRULICITY1.5 MG/0.5 SC (13:44)
[2022-04-26] MEDS ORDERED: VALACYCLOVIR HYD1 GM PO (13:48)
[2022-04-26 14:20] VITALS: BP 120/48
[2022-04-26 19:28] VITALS: BP 114/60
[2022-04-26 23:39] VITALS: BP 146/60
[2022-04-27] VITALS (8 sets, daily range): BP systolic 74–144; BP diastolic 38–69
[2022-04-27 05:28] LABS: HEMATOCRIT 39.7 % (39.0-50.0); HEMOGLOBIN 12.2 g/dl (14.0-18.0); IMMATURE GRANULOCYTES 0.4 % (0.0-5.0); MEAN CELL VOLUME 84.3 fL CALC (80.0-100.0); MEAN CORPUSCULAR HGB 25.9 pG CALC (26.0-32.0); MEAN CORPUSCULAR HGB CONC 30.7 g/dL CAL (32.0-36.0); NEUT# 5.89 thou/uL (1.82-7.42); RED BLOOD COUNT 4.71 mill/uL (4.70-6.10); RED CELL DISTRI WIDTH 16.4 % (11.5-15.5)
[2022-04-27 05:40] LABS: INTERNATIONAL NORMALIZED RATIO 3.9 RATIO (0.7-1.3); PROTHROMBIN TIME 37.7 SECONDS (9.0-12.5)
[2022-04-27 08:27] LABS: ANION GAP 10 (6-22 (CALC)); BUN 12 mg/dL (8-23); BUN/CREATININE RATIO 13 (12-20 (CALC)); CARBON DIOXIDE 29 mmol/l (22-30); CHLORIDE 101 mmol/l (95-108); CREATININE 0.9 mg/dL (0.7-1.3); GFR FOR AFR.AMER. > 60 ML/MIN (>=60 (CALC)); GFR OTHER RACES > 60 ML/MIN (>=60 (CALC)); POTASSIUM 3.7 mmol/l (3.5-5.1); SODIUM 137 mmol/l (137-146)
[2022-04-28] VITALS (8 sets, daily range): BP systolic 128–145; BP diastolic 56–77
[2022-04-28 05:41] LABS: HEMATOCRIT 36.1 % (39.0-50.0); HEMOGLOBIN 11.5 g/dl (14.0-18.0); MEAN CELL VOLUME 82.6 fL CALC (80.0-100.0); MEAN CORPUSCULAR HGB 26.3 pG CALC (26.0-32.0); MEAN CORPUSCULAR HGB CONC 31.9 g/dL CAL (32.0-36.0); RED BLOOD COUNT 4.37 mill/uL (4.70-6.10); RED CELL DISTRI WIDTH 16.5 % (11.5-15.5)
[2022-04-28 05:49] LABS: ALBUMIN 2.8 g/dL (3.2-5.0); ALKALINE PHOSPHATASE 109 u/l (38-126); ANION GAP 8 (6-22 (CALC)); BILIRUBIN, TOTAL 0.3 mg/dL (0.0-1.4); BUN 13 mg/dL (8-23); BUN/CREATININE RATIO 12 (12-20 (CALC)); CARBON DIOXIDE 28 mmol/l (22-30); CHLORIDE 104 mmol/l (95-108); CREATININE 1.2 mg/dL (0.7-1.3); GFR FOR AFR.AMER. > 60 ML/MIN (>=60 (CALC)); GFR OTHER RACES 58 ML/MIN (>=60 (CALC)); MAGNESIUM 1.8 mg/dL (1.6-2.3); POTASSIUM 3.3 mmol/l (3.5-5.1); SGOT/AST 19 u/l (19-48); SODIUM 137 mmol/l (137-146); TOTAL PROTEIN 5.3 g/dL (6.3-8.2)
[2022-04-29] VITALS: BP 151/69
[2022-04-29 00:07] VITALS: BP 151/69
[2022-04-29 04:00] VITALS: BP 156/81
[2022-04-29 05:07] LABS: HEMATOCRIT 38.8 % (39.0-50.0); HEMOGLOBIN 11.8 g/dl (14.0-18.0); MEAN CELL VOLUME 85.8 fL CALC (80.0-100.0); MEAN CORPUSCULAR HGB 26.1 pG CALC (26.0-32.0); MEAN CORPUSCULAR HGB CONC 30.4 g/dL CAL (32.0-36.0); RED BLOOD COUNT 4.52 mill/uL (4.70-6.10); RED CELL DISTRI WIDTH 16.9 % (11.5-15.5)
[2022-04-29 05:14] LABS: INTERNATIONAL NORMALIZED RATIO 1.6 RATIO (0.7-1.3); PROTHROMBIN TIME 16.7 SECONDS (9.0-12.5)
[2022-04-29 05:21] LABS: ALBUMIN 3.1 g/dL (3.2-5.0); ALKALINE PHOSPHATASE 120 u/l (38-126); ANION GAP 9 (6-22 (CALC)); BILIRUBIN, TOTAL 0.4 mg/dL (0.0-1.4); BUN 13 mg/dL (8-23); BUN/CREATININE RATIO 12 (12-20 (CALC)); CARBON DIOXIDE 29 mmol/l (22-30); CHLORIDE 105 mmol/l (95-108); CREATININE 1.1 mg/dL (0.7-1.3); GFR FOR AFR.AMER. > 60 ML/MIN (>=60 (CALC)); GFR OTHER RACES > 60 ML/MIN (>=60 (CALC)); POTASSIUM 3.8 mmol/l (3.5-5.1); SGOT/AST 19 u/l (19-48); SODIUM 139 mmol/l (137-146); TOTAL PROTEIN 5.6 g/dL (6.3-8.2)
[2022-04-29 07:34] VITALS: BP 161/71
[2022-04-29] MEDS ORDERED: KEFLEX500 MG PO (11:09)
[2022-04-29 11:46] VITALS: BP 172/81
[2022-04-29 12:59] VITALS: BP 151/61
== END 2022-04-29 14:52 ==
LOC: ED 06:00 → ED-I 08:10 → MS2 08:22 → ED 08:22 → MS2 08:22
PROVIDERS: Emergency Medicine; ADMIT Internal Medicine; ATTEND Internal Medicine
DX: S00.93XA Contusion of unspecified part of head, initial encounter (principal); N39.0 Urinary tract infection, site not specified; K57.30 Diverticulosis of large intestine without perforation or abscess without bleeding; G40.909 Epilepsy, unspecified, not intractable, without status epilepticus; I13.0 Hypertensive heart and chronic kidney disease with heart failure and stage 1 through stage 4 chronic kidney disease, or unspecified chronic kidney disease; E11.22 Type 2 diabetes mellitus with diabetic chronic kidney disease; I50.9 Heart failure, unspecified; N18.30 Chronic kidney disease, stage 3 unspecified; J44.9 Chronic obstructive pulmonary disease, unspecified; I25.10 Atherosclerotic heart disease of native coronary artery without angina pectoris; E78.5 Hyperlipidemia, unspecified; I48.91 Unspecified atrial fibrillation; F03.90 Unspecified dementia, unspecified severity, without behavioral disturbance, psychotic disturbance, mood disturbance, and anxiety; B96.89 Other specified bacterial agents as the cause of diseases classified elsewhere; W06.XXXA Fall from bed, initial encounter; Y92.122 Bedroom in nursing home as the place of occurrence of the external cause; Z86.73 Personal history of transient ischemic attack (TIA), and cerebral infarction without residual deficits; Z95.5 Presence of coronary angioplasty implant and graft; Z95.0 Presence of cardiac pacemaker; Z86.16 Personal history of COVID-19; Z87.01 Personal history of pneumonia (recurrent); Z79.01 Long term (current) use of anticoagulants; Z79.4 Long term (current) use of insulin; Z20.822 Contact with and (suspected) exposure to COVID-19
CPT/HCPCS: J3475; Q9967

== ENCOUNTER 2024-10-31 23:35 | Emergency (ER) | payer MEDICARE, MEDICAID ==
[~2024-10-31] VITALS: Ht 172.7 cm; Wt 104.0 kg
[~2024-10-31 23:35] MED LIST changes: +ASPIRIN 81 LOW81 MG PO; +ELIQUIS5 MG PO; +KEFLEX500 MG PO; +OMEPRAZOLE DR40 MG PO; +VALACYCLOVIR HYD1 GM PO
[2024-10-31 23:39] VITALS: BP 119/64
[2024-10-31 23:45] VITALS: BP 102/57
[2024-11-01] VITALS (10 sets, daily range): BP systolic 92–115; BP diastolic 47–66
[2024-11-01 00:14] LABS: HEMATOCRIT 41.1 % (39.0-50.0); HEMOGLOBIN 13.4 g/dl (14.0-18.0); IMMATURE GRANULOCYTES 1.2 % (0.0-5.0); LYMPH% 5.6 % (15-41); MEAN CELL VOLUME 97.4 fL CALC (80.0-100.0); MEAN CORPUSCULAR HGB 31.8 pG CALC (26.0-32.0); MEAN CORPUSCULAR HGB CONC 32.6 g/dL CAL (32.0-36.0); NEUT# 9.93 thou/uL (1.82-7.42); NEUT% 88.2 % (42-76); RED BLOOD COUNT 4.22 mill/uL (4.70-6.10); RED CELL DISTRI WIDTH 13.9 % (11.5-15.5)
[2024-11-01 00:31] LABS: ALBUMIN 2.9 g/dL (3.2-5.0); BILIRUBIN, TOTAL 0.6 mg/dL (0.2-1.3); CREATININE 1.7 mg/dL (0.7-1.3); POTASSIUM 4.9 mmol/l (3.5-5.1); TOTAL PROTEIN 5.9 g/dL (6.3-8.2)
[2024-11-01] MEDS ORDERED: levoFLOXacin 500 MG TAB PO ONE (01:45)
[2024-11-01] MEDS ORDERED: LEVOFLOXACIN750 MG PO (01:48)
== END 2024-11-01 02:15 | disposition home or self-care (01) ==
LOC: ED 23:35
PROVIDERS: Family Medicine
DX: J12.3 Human metapneumovirus pneumonia (principal); E11.9 Type 2 diabetes mellitus without complications; I25.10 Atherosclerotic heart disease of native coronary artery without angina pectoris; I48.91 Unspecified atrial fibrillation; F03.90 Unspecified dementia, unspecified severity, without behavioral disturbance, psychotic disturbance, mood disturbance, and anxiety; Z93.0 Tracheostomy status; Z99.3 Dependence on wheelchair; Z99.81 Dependence on supplemental oxygen; Z95.5 Presence of coronary angioplasty implant and graft; Z86.73 Personal history of transient ischemic attack (TIA), and cerebral infarction without residual deficits; Z95.0 Presence of cardiac pacemaker; Z79.4 Long term (current) use of insulin; Z20.822 Contact with and (suspected) exposure to COVID-19

== ENCOUNTER 2024-11-04 10:32 | Emergency (ER) | payer MEDICARE, MEDICAID ==
[~2024-11-04] VITALS: Ht 172.7 cm; Wt 86.0 kg
[2024-11-04] VITALS (21 sets, daily range): BP systolic 86–142; BP diastolic 46–63
[~2024-11-04 10:32] MED LIST changes: +LEVOFLOXACIN750 MG PO
[2024-11-04 12:17] LABS: EOS% 0.7 % (0-8); HEMATOCRIT 40.5 % (39.0-50.0); HEMOGLOBIN 13.1 g/dl (14.0-18.0); LYMPH% 9.8 % (15-41); MEAN CELL VOLUME 97.8 fL CALC (80.0-100.0); MEAN CORPUSCULAR HGB 31.6 pG CALC (26.0-32.0); MEAN CORPUSCULAR HGB CONC 32.3 g/dL CAL (32.0-36.0); MONO% 7.3 % (2-13); NEUT# 16.5 thou/uL (1.82-7.42); NEUT% 78.2 % (42-76); RED BLOOD COUNT 4.14 mill/uL (4.70-6.10); RED CELL DISTRI WIDTH 14.2 % (11.5-15.5)
[2024-11-04 12:43] LABS: CREATININE 1.4 mg/dL (0.7-1.3); POTASSIUM 4.6 mmol/l (3.5-5.1); TOTAL PROTEIN 6.1 g/dL (6.3-8.2)
[2024-11-04 12:54] LABS: BILIRUBIN, TOTAL 1.2 mg/dL (0.2-1.3)
[2024-11-04] MEDS ORDERED: SODIUM CHLORIDE 0.9% 1,000 ML IV ONE ×2 (14:50→14:55)
[2024-11-04 15:13] LABS: URINE BILIRUBIN - DIPSTICK Negative (NEGATIVE); URINE BLOOD DIPSTICK Negative (NEGATIVE); URINE GLUCOSE - DIPSTICK Negative (NEGATIVE); URINE KETONE Negative (NEGATIVE); URINE LEUK ESTERASE Negative (NEGATIVE); URINE NITRITE - DIPSTICK Negative (Negative); URINE PH 5.5 (4.5-8.0); URINE PROTEIN - DIPSTICK Negative (NEG-TRACE); URINE SPECIFIC GRAVITY 1.015; URINE UROBILINOGEN - DIPSTICK 0.2 E.U./dL (0.2)
[2024-11-04 15:26] LABS: URINE COLOR Yellow
== END 2024-11-04 16:41 | disposition home or self-care (01) ==
LOC: ED 10:32
PROVIDERS: Emergency Medicine
DX: M79.81 Nontraumatic hematoma of soft tissue (principal); E86.0 Dehydration; I95.9 Hypotension, unspecified; I25.10 Atherosclerotic heart disease of native coronary artery without angina pectoris; E11.9 Type 2 diabetes mellitus without complications; Z86.73 Personal history of transient ischemic attack (TIA), and cerebral infarction without residual deficits; Z99.3 Dependence on wheelchair; I48.91 Unspecified atrial fibrillation; F03.90 Unspecified dementia, unspecified severity, without behavioral disturbance, psychotic disturbance, mood disturbance, and anxiety; I50.9 Heart failure, unspecified; Z79.4 Long term (current) use of insulin; Z79.84 Long term (current) use of oral hypoglycemic drugs
CPT/HCPCS: Q9967

== ENCOUNTER 2024-11-12 16:56 | Inpatient (IN) | payer MEDICARE, MEDICAID ==
[2024-11-12] VITALS (22 sets, daily range): BP systolic 92–162; BP diastolic 59–81
[~2024-11-12] VITALS: Ht 172.7 cm; Wt 88.3 kg
--- NOTE | 2024-11-12 16:56 | NUR ---
PT TO ER ROOM 3 VIA EMS.
--- NOTE | 2024-11-12 17:00 | NUR ---
PT HAS REFUSED IV, HAS AGREED TO A ONE TRY STRAIGHT STICK. LAB IS NOTIFIED.
[2024-11-12] MEDS ORDERED: NITROGLYCERIN 0.4 MG/TAB SL ONE (17:15)
[2024-11-12 17:30] LABS: BASO% 0.1 % (0-3); HEMATOCRIT 39.8 % (39.0-50.0); HEMOGLOBIN 12.9 g/dl (14.0-18.0); IMMATURE GRANULOCYTES 1.4 % (0.0-5.0); LYMPH% 5.1 % (15-41); MEAN CORPUSCULAR HGB 32.7 pG CALC (26.0-32.0); MEAN CORPUSCULAR HGB CONC 32.4 g/dL CAL (32.0-36.0); MONO% 5.9 % (2-13); NEUT# 22.58 thou/uL (1.82-7.42); NEUT% 87.5 % (42-76); RED BLOOD COUNT 3.94 mill/uL (4.70-6.10); RED CELL DISTRI WIDTH 14.5 % (11.5-15.5)
[2024-11-12] MEDS ORDERED: ONDANSETRON HCl 4 MG/2 ML SDV IV ONE (17:30)
[2024-11-12 17:48] LABS: ALBUMIN 3.3 g/dL (3.2-5.0); BILIRUBIN, TOTAL 1.1 mg/dL (0.2-1.3); CREATININE 1.3 mg/dL (0.7-1.3); POTASSIUM 5.2 mmol/l (3.5-5.1); TOTAL PROTEIN 6.2 g/dL (6.3-8.2)
[2024-11-12] MEDS ORDERED: TRELEGY ELLIPTA1 AER (17:50)
[2024-11-12] MEDS ORDERED: OZEMPIC 8 MG/3M1 INJ (17:50)
[2024-11-12] MEDS ORDERED: METFORMIN HCL500 M1 PO (17:50)
[2024-11-12] MEDS ORDERED: POTASSIUM CHLO10 ME4 (17:51)
[2024-11-12] MEDS ORDERED: LEVETIRACETAM1000 MG PO (17:52)
[2024-11-12] MEDS ORDERED: LEVOFLOXACIN750 MG PO (17:52)
--- NOTE | 2024-11-12 17:57 | NUR ---
PTS COME OUT OF ROOM STATINNG THAT HI AND PATIENT ARE READY TO LEAVE THAT THEY DO NOT WANT TO WAIT ON RESULTS. MD IS MADE AWARE. MD AND NURSE IN ROOM WITH PATIENT DISCUSSING AMANDA NEED TO STAY IN ER.
--- NOTE | 2024-11-12 18:10 | NUR ---
D/C instructions given with verbalization of understanding. Pt. discharged home in stable condition.
[2024-11-12] MEDS ORDERED: VANCOMYCIN HCL 1 GM in SODIUM CHLORIDE 0.9% 500 ML IV ONE (19:00)
--- NOTE | 2024-11-12 19:00 | NUR ---
pt report received from Karel PAYNE
--- NOTE | 2024-11-12 19:09 | NUR ---
attempted to obatain urine through a straigh cath, no urine obtained. Provider notified.
[2024-11-12] MEDS ORDERED: SODIUM CHLORIDE 0.9% 1,000 ML IV ONE (19:10)
[2024-11-12] MEDS ORDERED: ACETAMINOPHEN 325 MG/TAB PO PRN (20:10)
[2024-11-12] MEDS ORDERED: MAGNESIUM HYDROXIDE 30 ML UDC PO PRN (20:10)
[2024-11-12] MEDS ORDERED: Zaleplon 5 MG/CAP PO PRN (20:10)
--- NOTE | 2024-11-12 20:59 | NUR ---
ATTEMPTED TO CALL REPORT TO [facility] [place] [place], NURSE NOT AVAILABLE AT THIS TIME.
[2024-11-12] MEDS ORDERED: INSULIN GLARGINE 100 UNITS/ML SC SCH (21:00)
[2024-11-12] MEDS ORDERED: GABAPENTIN 100 MG/CAP PO SCH (21:00)
[2024-11-12] MEDS ORDERED: INSULIN LISPRO 100 UNITS/ML ML SC SCH (21:00)
--- NOTE | 2024-11-12 21:39 | NUR ---
PT REPORT GIVEN TO JOHNSON ON [facility] [place] [place] FLOOR.
--- NOTE | 2024-11-12 21:45 | NUR ---
PT TRANSPORTED TO [facility] BED 271 VIA STRETCHER WITH TELE BOX #[id number]
--- NOTE | 2024-11-12 22:00 | NUR ---
RECEIVED PHONECALL FROM LAB CRITICAL LACTIC 3.1, DR ADLER MADE AWARE NO NEW ORDERS MADE.
--- NOTE | 2024-11-12 23:00 | NUR ---
SPOKE TO NURSE BRI[facility], PATIENT IS A DNR.
[2024-11-13] VITALS (9 sets, daily range): BP systolic 113–141; BP diastolic 46–64
--- NOTE | 2024-11-13 | NUR ---
RECEIVED REPORT FROM ED NURSE KIT, PATIENT ARRIVED TO MS UNIT AT 2148, TRANSPORTED VIA BED, PATIENT AROUSABLE TO SPEECH, PATIENT IS ALERT TO NAME AND BIRTHDAY ONLY, DENIES PAIN AT THIS TIME, ABLE TO MAKE NEEDS KNOWN, PATIENT NOTED COARSE LUNG SOUNDS, BRUISING NOTED ON RT NECK AREA, SPO2 AT 91-93% RANGE ON ROOM AIR, PATIENT OPEN AREA NOTED ON COCCYX, AQUACEL APPLIED, RASH ON YOHANA AREA, AND HEELS RED BLANCHABBLE, OFFLOADED, PATIENT ON SCD, PATIENT ADMISSION ASSESSMENT COMPLETED, ORIENTED TO ROOM AND CALL [employer], BED ALARM IN PLACED.
--- NOTE | 2024-11-13 03:50 | NUR ---
PATIENT HAD A INCONTINECE OF URINE, MODERATE AMOUNT, PUREWICK LEAKING, INCONTINET CARE PROVIDED NEW PUREWICK IN PLACED.
[2024-11-13 04:39] LABS: URINE BILIRUBIN - DIPSTICK Negative (NEGATIVE); URINE BLOOD DIPSTICK Negative (NEGATIVE); URINE COLOR Yellow; URINE GLUCOSE - DIPSTICK Negative (NEGATIVE); URINE KETONE Trace mg/dL (NEGATIVE); URINE LEUK ESTERASE Small (NEGATIVE); URINE NITRITE - DIPSTICK Negative (Negative); URINE PROTEIN - DIPSTICK Negative (NEG-TRACE); URINE SPECIFIC GRAVITY 1.015; URINE UROBILINOGEN - DIPSTICK 0.2 E.U./dL (0.2)
[2024-11-13 04:48] LABS: URINE BACTERIA FEW hpf; URINE RBC 0-2 RBC/hpf (0-5)
--- NOTE | 2024-11-13 07:14 | NUR ---
PATIENT LYING IN BED WITH EYES CLOSED RESTING. BREATHING UNLABORED ON ROOM AIR. TELE INTACT. IV IN [facility] SL;SITE CLEAN AND INTACT. NO SIGNS OF DISTRESS OR PAIN NOTED. SCD'S APPLIED. BED IN LOWEST POSITION. PERSONAL ITEMS WELL CALL LIGHT WITHIN REACH. NO NEEDS AT THIS TIME. POC ONGOING.
[2024-11-13 08:59] LABS: BASO% 0.1 % (0-3); HEMATOCRIT 36.1 % (39.0-50.0); HEMOGLOBIN 11.7 g/dl (14.0-18.0); IMMATURE GRANULOCYTES 0.6 % (0.0-5.0); LYMPH% 5.3 % (15-41); MEAN CELL VOLUME 100.8 fL CALC (80.0-100.0); MEAN CORPUSCULAR HGB 32.7 pG CALC (26.0-32.0); MEAN CORPUSCULAR HGB CONC 32.4 g/dL CAL (32.0-36.0); MONO% 4.7 % (2-13); NEUT# 25.31 thou/uL (1.82-7.42); NEUT% 89.3 % (42-76); RED BLOOD COUNT 3.58 mill/uL (4.70-6.10); RED CELL DISTRI WIDTH 14.9 % (11.5-15.5)
[2024-11-13] MEDS ORDERED: PANTOPRAZOLE SODIUM Sesquihydr 40 MG/TAB PO SCH (09:00)
[2024-11-13] MEDS ORDERED: BUMETANIDE 1 MG/TAB PO SCH (09:00)
[2024-11-13] MEDS ORDERED: LOSARTAN Potassium 25 MG/TAB PO SCH (09:00)
[2024-11-13 09:38] LABS: ALBUMIN 2.8 g/dL (3.2-5.0); CREATININE 1.3 mg/dL (0.7-1.3); TOTAL PROTEIN 5.7 g/dL (6.3-8.2)
[2024-11-13 09:50] LABS: BILIRUBIN, TOTAL 0.5 mg/dL (0.2-1.3); POTASSIUM 3.8 mmol/l (3.5-5.1)
--- NOTE | 2024-11-13 09:51 | NUR ---
CRITICAL LAB CALLED @0951. PT MAGNEISUM IS 0.8. GAYATRI REDDY/ NOTIFIED AND AWARE. POC ONGOING.
[2024-11-13 09:52] LABS: MAGNESIUM 0.8 mg/dL (1.6-2.3)
--- NOTE | 2024-11-13 09:58 | NUR ---
CRITICAL LAB CALLED @0932 BY ALCON Scott PT LACTIC ACID 3.0. GAYATRI REDDY/ NOTIFIED AND AWARE. POC ONGOING.
[2024-11-13] MEDS ORDERED: MAGNESIUM SULFATE HEPTAHYDRATE 100 ML IV SCH (11:00)
--- NOTE | 2024-11-13 12:03 | NUR ---
CRITICAL LAB CALLED @1201 BY ALCON Scott PT LACTIC ACID IS 2.6. GAYATRI REDDY/VIDAL NOTIFIED AND AWARE.
--- NOTE | 2024-11-13 12:15 | NUR ---
PATIENT LYING IN BED GETTING LABS DRAWN. LUNCH TRAY NEAR AND PT PROVIDED SETUP. BREATHING UNLABORED ON ROOM AIR. TELE INTACT. IV IN RAC INFUSING FLUIDS PER EMAR;SITE CLEAN AND INTACT. PT DENIES ANY CHEST PAIN OR N/D/V AT THIS TIME. SCD'S ON BLE. HEEL PROTECTORS INTACT. BED IN LOWEST POSITION. PERSONAL ITEMS WELL CALL LIGHT WITHIN REACH. POC ONGOING. NO OTHER NEEDS AT THIS TIME.
[2024-11-13] MEDS ORDERED: VANCOMYCIN HCL 1,250 MG in SODIUM CHLORIDE 0.9% 225 ML IV SCH (14:00)
--- NOTE | 2024-11-13 14:19 | NUR ---
S: FAUSTINA MCCOY is a 84 M who presents with leukocytosis. O: VS: BP 119/63, P 74, RR 24,T 97.3 W 84.5 kg, HT 68 in, Scr= 1.3,CrCl= 43.2 ml/min A: Blood and urine cultures are pending. P: Patient is on Zosyn 3.375 gm IV q6h. Vancomycin ordered for pharmacy to dose. Start Vancomycin 1250 mg IV Q24H. Vancomycin trough is drawn before the 3rd dose on 11/15/24 1330. Vancomycin goal trough is between <10-20 mcg/ml>. Pharmacy will follow and or advise on antibiotics use as needed.
[2024-11-13] MEDS ORDERED: PIPERACILLIN Sodium-Tazobactam 3.375 GM in SODIUM CHLORIDE 0.9% 100 ML IV SCH (15:00)
--- NOTE | 2024-11-13 15:15 | NUR ---
PATIENT 02 SAT BETWEEN 87-89%. 2L OF SUPPLEMENTAL 02 VIA NC APPLIED. O2 SATS NOW UP TO 95% POC ONGOING.
--- NOTE | 2024-11-13 16:30 | NUR ---
PATIENT LYING IN BED WITH EYES CLOSED RESTING. BREATHING UNLABORED ON 2L NC. TELE INTACT. IV IN RAC INFUSING FLUIDS PER EMAR;SITE CLEAN AND INTACT. SCD'S STILL IN PLACE WELL HEEL PROTECTORS. PUREWICK IN PLACE WITH NO KINKS. NO SIGNS OF DISTRESS OR PAIN NOTED. PERSONAL ITEMS WELL CALL LIGHT WITHIN REACH.BED IN LOWEST POSITION. NO NEEDS AT THIS TIME. POC ONGOING.
--- NOTE | 2024-11-13 19:57 | NUR ---
RECEIVED REPORT FROM NURSE DEVRIES, PATIENT AROUSABLE TO SPEECH, PATINET ALERT TO NAME AND BIRTHDAY, DENIES PAIN AT THIS TIME, ON O2 @ 2LPM VIA NC, BREATHING SHALLOW, UNLABORED, IV ON RAC PATENT FLSUHES WELL, TELEMETRY IN PLACED, SCD IN PLACED, CALL LIGHT IN REACHED, BED ALARM IN PLACED.
--- NOTE | 2024-11-13 23:44 | NUR ---
PATIENT RESTING IN BED, BREATHING SHALLOW, UNLABORED, REMAINS ON O2 @ 2LPM VIA NC SPO2 AT 94-96% CALL LIGHT IN REACHED, BED ALARM IN PLACED AND ON SEIOZURE PRECAUTYION.
[2024-11-14] VITALS (13 sets, daily range): BP systolic 83–117; BP diastolic 38–59
--- NOTE | 2024-11-14 04:48 | NUR ---
PATIENT REMAINS ON O2 @2lpm via nc, not in distress coughing noted non productive, breathing unlabored, call light within reached.
[2024-11-14 05:58] LABS: BASO% 0.3 % (0-3); EOS% 0.5 % (0-8); HEMATOCRIT 32.7 % (39.0-50.0); HEMOGLOBIN 10.8 g/dl (14.0-18.0); IMMATURE GRANULOCYTES 0.4 % (0.0-5.0); LYMPH% 7.3 % (15-41); MONO% 6.5 % (2-13); NEUT# 16.72 thou/uL (1.82-7.42); RED BLOOD COUNT 3.27 mill/uL (4.70-6.10); RED CELL DISTRI WIDTH 14.6 % (11.5-15.5)
[2024-11-14 06:08] LABS: ALBUMIN 2.5 g/dL (3.2-5.0); CREATININE 1.4 mg/dL (0.7-1.3); POTASSIUM 3.8 mmol/l (3.5-5.1)
[2024-11-14 06:14] LABS: BILIRUBIN, TOTAL 0.8 mg/dL (0.2-1.3); MAGNESIUM 1.7 mg/dL (1.6-2.3)
--- NOTE | 2024-11-14 07:24 | NUR ---
PATIENT LYING IN BED WITH EYES CLOSED RESTING. BREATHING UNLABORED ON 2L NC. TELE INTACT. IV IN RAC SL;SITE CLEAN AND INTACT. NO SIGNS OF DISTRESS OR PAIN NOTED. SCD'S ON WELL HEEL PROTECTORS. PUREWICK IN PLACE. BED IN LOWEST POSITION. NO OTHER NEEDS AT THIS TIME. PERSONAL ITEMS WELL CALL LIGHT NEAR. NO OTHER NEEDS AT THIS TIME. POC ONGOING.
--- NOTE | 2024-11-14 07:52 | NUR ---
patient sitting up in recliner with staffs , and alexander lift assistance.
--- NOTE | 2024-11-14 09:26 | NUR ---
patient requested to get back in bed 2 nurses assisted patient back to bed with alexander lift.
[2024-11-14] MEDS ORDERED: YEAST (S. BOULARDII)(S. CEREVI 250 MG CAP PO SCH (11:30)
--- NOTE | 2024-11-14 12:17 | NUR ---
PATIENT SITTING UP IN BED EATING LUNCH. BREATHING UNLABORED ON 2L NC. TELE INTACT, IV IN RAC SL;SITE CLEAN AND INTACT. PT DENIES ANY PAIN OR N/D/V AT THIS TIME. PT REQUESTED MORE TEA;INOFRMED HIM SOME WILL BE DWIGHT TO HIM. PUREWICK IN PLACE. BED IN LOWEST POSITION. PERSONAL ITEMS WELL CALL LIGHT WITHIN REACH. NO OTHER NEEDS AT THIS TIME. POC ONGOING.
[2024-11-14] MEDS ORDERED: IPRATROPIUM-Albuterol 0.5MG-2.5MG/3 ML NEB SCH (15:00)
[2024-11-14] MEDS ORDERED: SODIUM CHLORIDE 0.9% 1,000 ML IV PRN (15:45)
--- NOTE | 2024-11-14 15:47 | NUR ---
PATIENT B/P DOWN TO 99/49. MECHANICAL SUPERVISOR WENT IN AND RECHECKED AND B/P WAS DOWN TO 95/45. GAYATRI CLOTH HAULER NOTIFIED AND AWARE. ORDERS IN PROGRESS. POC ONGOING.
--- NOTE | 2024-11-14 16:28 | NUR ---
PATIENT LYING IN BED WITH EYES CLOSED RESTING. BREATHING UNLABORED ON 2L NC. TELE INTACT. IV IN RAC INFUSING FLUIDS PER EMAR;SITE CLEAN AND INTACT. PUREWICK IN PLACE. SCD'S ON AND ACTIVE. NO SIGNS OF DISTRESS NOTED. BED IN LOWEST POSITION. CALL LIGHT WITHIN REACH. POC ONGOING. NO NEEDS AT THIS TIME.
--- NOTE | 2024-11-14 19:30 | NUR ---
PT RESTING IN BED WATCHING TV AT THIS MOMENT. ALERT JUST TO HIMSELF. RESPS ARE EVEN AND UNLABORED WITH O2 IN PLACE VIA NC AT 2LPM. NO DSITRESS NOTED. COARSE SOUNDS ALL THROUGHOUT. TELE MONITOR IN PLACE ORDERED WITH LEADS INTACT AND WORKING WELL. BRUISE NOTED TO HER RIGHT SIDE OF THE NECK. SKIN IS SCALY, FRAGYL, DRY AND WARM. BILLATERAL SCD'S IN LOWER EXTREMITIES. 20 G IV NOTED TO HIS RAC INFUSING IVF NS AT [address] WITH NO URINE AT THIS MOMENT. CALL LIGHT IS IN REACH AND SAFETY PRECAUTIONS IN PLACE. WILL CONTINUE TO MONITOR.
[2024-11-15] VITALS (10 sets, daily range): BP systolic 84–119; BP diastolic 35–57
--- NOTE | 2024-11-15 | NUR ---
PATIENT RESTING IN BED WITH EYES CLOSED. RESPS ARE EVEN AND UNLABORED ON O2 VIA NC AT 2LPM. NO SIGNS OF DISTRESS. IVF INFUSING ORDERED. CALL LIGHT IS IN REACH AND SAFETY PERCAUTIONS IN PLACE.
--- NOTE | 2024-11-15 04:00 | NUR ---
PT RESTING IN SEMI SHANNON'S POSITION WITH EYES CLOSED. BRETAHING IS EVEN AND UNLABORED. O2 IN PLACED ORDERED. IVF NS REMIANS INFUSING ORDERED. TELEMONITOR RUNNING PACED-60 AT THIS TIME. CALL LIGHT IS WITHIN REACH AND SAFETY PRECAUTIONS IN PLACE.
[2024-11-15 05:29] LABS: BASO% 0.2 % (0-3); EOS% 2.4 % (0-8); HEMOGLOBIN 9.6 g/dl (14.0-18.0); IMMATURE GRANULOCYTES 0.5 % (0.0-5.0); LYMPH% 10.7 % (15-41); MEAN CELL VOLUME 102.1 fL CALC (80.0-100.0); MEAN CORPUSCULAR HGB 33.8 pG CALC (26.0-32.0); MEAN CORPUSCULAR HGB CONC 33.1 g/dL CAL (32.0-36.0); MONO% 6.7 % (2-13); NEUT# 10.22 thou/uL (1.82-7.42); NEUT% 79.5 % (42-76); RED BLOOD COUNT 2.84 mill/uL (4.70-6.10); RED CELL DISTRI WIDTH 14.5 % (11.5-15.5)
[2024-11-15 05:46] LABS: BILIRUBIN, TOTAL 0.7 mg/dL (0.2-1.3); CREATININE 1.3 mg/dL (0.7-1.3); MAGNESIUM 1.5 mg/dL (1.6-2.3); POTASSIUM 3.6 mmol/l (3.5-5.1); TOTAL PROTEIN 4.5 g/dL (6.3-8.2)
--- NOTE | 2024-11-15 08:00 | NUR ---
PATIENT RESTING IN BED. ASSESSMENT COMPLETED. #20 RAC. SITE APPEARS HEALTHY. POC DISCUSSED. PATIENT DENIES ANY PAIN. LINENS CHANGED. TEETH BRUSHED. CALL LIGHT IN REACH. WILL CONTINUE TO MONITOR.
[2024-11-15] MEDS ORDERED: MAGNESIUM SULFATE HEPTAHYDRATE 50 ML IV SCH (09:30)
--- NOTE | 2024-11-15 12:00 | NUR ---
PATIENT SLEEPING. RESP EVEN AND UNLABORED. NO S/S OF DISTRESS. IV FLUIDS RUNNING. CALL LIGHT IN REACH.
--- NOTE | 2024-11-15 16:26 | NUR ---
PATIENT SLEEPING. NO S/S OF DISTRESS. RESP EVEN AND UNLABORED. CALL LIGHT IN REACH.
--- NOTE | 2024-11-15 21:00 | NUR ---
PT RESTING NO DISTRESS NOTED. PT IS ALERT AND ORIENTATED TO SELF AND PLACE. PT REPORTS NO PAIN AT THIS TIME. PT REPOSITIONED WITH SCDS ON. IV FLUSHED WORKING PROPERLY WITH FLUIDS ONGOING AT 50ML/HR. PT OFFERED ORAL FLUIDS. LUNGS SOUND COARSE ON NC 2L. PT HAS SCATTERED BRUISING INCLUDING ONE ON HIS RIGHT SIDE OF NECK. COCCYX HAS A WOUND WITH A DRESSING CLEAN AND INTACT. GROIN REDNESS NOTED WITH IRRITATION PUREWICK IN PLACE. CALL LIGHT WITHIN REACH. PLAN OF CARE ONGOING.
[2024-11-16] VITALS (7 sets, daily range): BP systolic 97–121; BP diastolic 39–60
--- NOTE | 2024-11-16 00:13 | NUR ---
PT SLEEPING NO DISTRESS NOTED ON EXAM. IV FLUIDS ONGOING WORKING PROPERLY. CALL LIGHT WITHIN REACH. PLAN OF CARE ONGOING.
--- NOTE | 2024-11-16 04:30 | NUR ---
PT SLEEPING EASILY AROUSABLE NO DISTRESS NOTED ON EXAM. CALL LIGHT WITHIN REACH. PLAN OF CARE ONGOING.
[2024-11-16 05:41] LABS: BASO% 0.4 % (0-3); EOS% 2.2 % (0-8); HEMATOCRIT 30.1 % (39.0-50.0); HEMOGLOBIN 9.6 g/dl (14.0-18.0); IMMATURE GRANULOCYTES 0.4 % (0.0-5.0); LYMPH% 12.2 % (15-41); MEAN CELL VOLUME 102.4 fL CALC (80.0-100.0); MEAN CORPUSCULAR HGB 32.7 pG CALC (26.0-32.0); MEAN CORPUSCULAR HGB CONC 31.9 g/dL CAL (32.0-36.0); MONO% 5.9 % (2-13); NEUT# 8.36 thou/uL (1.82-7.42); NEUT% 78.9 % (42-76); RED BLOOD COUNT 2.94 mill/uL (4.70-6.10); RED CELL DISTRI WIDTH 14.6 % (11.5-15.5)
[2024-11-16 05:50] LABS: BILIRUBIN, TOTAL 0.6 mg/dL (0.2-1.3); CREATININE 1.4 mg/dL (0.7-1.3); MAGNESIUM 1.6 mg/dL (1.6-2.3); POTASSIUM 3.4 mmol/l (3.5-5.1); TOTAL PROTEIN 4.5 g/dL (6.3-8.2)
--- NOTE | 2024-11-16 07:30 | NUR ---
REPORT RECEIVED FROM FOREIGN LANGUAGE TEACHER NURSE. PATIENT IS RESTING IN BED, C/O PAIN IN NECK AREA. A&O TO SELF ONLY AT THIS TIME, ON 2L NC, PACED ON TELE MONITOR. ALL NEEDS ADDRESSED, CALL LIGHT WITHIN REACH.
[2024-11-16] MEDS ORDERED: POTASSIUM CHLORIDE 20MEQ 100 ML IV SCH (11:30)
[2024-11-16] MEDS ORDERED: DOXYCYCLINE HYCLATE 100 MG in SODIUM CHLORIDE 0.9% 100 ML IV SCH (13:30)
--- NOTE | 2024-11-16 14:01 | NUR ---
PATIENT IS IN BED RESTING TOLERATING IV TREATMENT WELL
--- NOTE | 2024-11-16 16:27 | NUR ---
PATIENT IS RESTING WELL NO C/O PAIN
--- NOTE | 2024-11-16 20:30 | NUR ---
PT RESTING NO DISTRESS NOTED ON ASSESSMENT. NEW IV PLACED ON LEFT WRIST. PT REPOSITIONED. CALL LIGHT WITHIN REACH. PLAN OF CARE ONGOING.
--- NOTE | 2024-11-17 00:45 | NUR ---
PT SLEEPING EASILY AROUSABLE NO DISTRESS NOTED. ABX GIVEN. CALL LIGHT WITHIN REACH. PLAN OF CARE ONGOING.
[2024-11-17 00:52] VITALS: BP 99/48
--- NOTE | 2024-11-17 04:30 | NUR ---
PT SLEEPING NO DISTRESS NOTED ON EXAM. CALL LIGHT WITHIN REACH. PLAN OF CARE ONGOING.
[2024-11-17 04:59] VITALS: BP 108/52
[2024-11-17 05:24] LABS: BASO% 0.3 % (0-3); EOS% 2.7 % (0-8); HEMATOCRIT 29.9 % (39.0-50.0); HEMOGLOBIN 9.7 g/dl (14.0-18.0); IMMATURE GRANULOCYTES 0.4 % (0.0-5.0); LYMPH% 8.7 % (15-41); MEAN CORPUSCULAR HGB 32.4 pG CALC (26.0-32.0); MEAN CORPUSCULAR HGB CONC 32.4 g/dL CAL (32.0-36.0); MONO% 6.9 % (2-13); NEUT# 9.41 thou/uL (1.82-7.42); RED BLOOD COUNT 2.99 mill/uL (4.70-6.10); RED CELL DISTRI WIDTH 14.7 % (11.5-15.5)
[2024-11-17 05:32] LABS: ALBUMIN 2.2 g/dL (3.2-5.0); BILIRUBIN, TOTAL 0.6 mg/dL (0.2-1.3); CREATININE 1.4 mg/dL (0.7-1.3); MAGNESIUM 1.3 mg/dL (1.6-2.3); POTASSIUM 3.3 mmol/l (3.5-5.1); TOTAL PROTEIN 4.9 g/dL (6.3-8.2)
[2024-11-17] MEDS ORDERED: DEXTROSE 250 ML IV PRN (06:05)
--- NOTE | 2024-11-17 06:20 | NUR ---
MD INFORMED OF CRITICAL BG OF 42. PT WAS GIVEN D10 IV BOLOUS AND ORDER TO START D5W INFUSION IF BG CONTINUES TO BE LOW.
[2024-11-17] MEDS ORDERED: DEXTROSE 5% 1,000 ML IV PRN (06:25)
--- NOTE | 2024-11-17 06:44 | NUR ---
BG RECHECK 164. PT CONTINUES TO SLEEP NO DISTRESS NOTED.
[2024-11-17 07:00] VITALS: BP 123/57
[2024-11-17] MEDS ORDERED: POTASSIUM CHLORIDE 20 MEQ/PKT POWDER PO SCH (09:00)
[2024-11-17] MEDS ORDERED: MAGNESIUM SULFATE HEPTAHYDRATE 100 ML IV SCH (09:30)
[2024-11-17] MEDS ORDERED: FLORASTOR250 M1 PO (09:33)
[2024-11-17] MEDS ORDERED: DOXYCYCLINE100 MG PO (09:34)
[2024-11-17] MEDS ORDERED: LANTUS100 UNIT SC (09:34)
[2024-11-17 11:01] VITALS: BP 136/70
--- NOTE | 2024-11-17 13:59 | NUR ---
DISCHARGE COMPLETED, IV REMOVED, TRANSFERRED TO WHEELCHAIR VIA [facility] LIFT. REPORT CALLED INTO RECEIVING RN. 2LNC IN PLACE AT D/C. DISCHARGED VIA WHEELCHAIR TO [facility].
== END 2024-11-17 13:15 | DRG 194 ==
LOC: ED 16:56 → ED-I 19:14 → ED 19:25 → MS2 19:26
PROVIDERS: Internal Medicine; Nurse Practitioner; Nurse Practitioner Family; ADMIT Internal Medicine; ATTEND Internal Medicine
DX: J18.9 Pneumonia, unspecified organism (principal); E87.20 Acidosis, unspecified; I13.0 Hypertensive heart and chronic kidney disease with heart failure and stage 1 through stage 4 chronic kidney disease, or unspecified chronic kidney disease; I48.21 Permanent atrial fibrillation; J44.0 Chronic obstructive pulmonary disease with (acute) lower respiratory infection; I43 Cardiomyopathy in diseases classified elsewhere; R09.02 Hypoxemia; I50.9 Heart failure, unspecified; E11.22 Type 2 diabetes mellitus with diabetic chronic kidney disease; N18.30 Chronic kidney disease, stage 3 unspecified; E83.42 Hypomagnesemia; E87.6 Hypokalemia; I25.10 Atherosclerotic heart disease of native coronary artery without angina pectoris; E78.5 Hyperlipidemia, unspecified; F03.90 Unspecified dementia, unspecified severity, without behavioral disturbance, psychotic disturbance, mood disturbance, and anxiety; G40.909 Epilepsy, unspecified, not intractable, without status epilepticus; Z99.3 Dependence on wheelchair; Z86.73 Personal history of transient ischemic attack (TIA), and cerebral infarction without residual deficits; Z95.5 Presence of coronary angioplasty implant and graft; Z95.0 Presence of cardiac pacemaker; Z79.84 Long term (current) use of oral hypoglycemic drugs; Z79.4 Long term (current) use of insulin
CPT/HCPCS: J0696; J1815; J2405; J2543; J3370; J3475; J3480

== ENCOUNTER 2024-11-29 19:52 | Inpatient (IN) | payer MEDICARE, MEDICAID ==
[2024-11-29] VITALS (30 sets, daily range): BP systolic 61–227; BP diastolic 31–199
[~2024-11-29] VITALS: Ht 172.7 cm; Wt 81.6 kg
[~2024-11-29 19:52] MED LIST changes: +DOXYCYCLINE100 MG PO; +FLORASTOR250 M1 PO; +LANTUS100 UNIT SC; +LEVETIRACETAM1000 MG PO; +METFORMIN HCL500 M1 PO; +OZEMPIC 8 MG/3M1 INJ; +POTASSIUM CHLO10 ME4; +TRELEGY ELLIPTA1 AER
[2024-11-29] MEDS ORDERED: SODIUM CHLORIDE 0.9% 1,000 ML IV ONE ×2 (21:05→22:50)
[2024-11-29 21:31] LABS: BASO% 0.1 % (0-3); EOS% 0.2 % (0-8); HEMATOCRIT 40.1 % (39.0-50.0); HEMOGLOBIN 12.8 g/dl (14.0-18.0); IMMATURE GRANULOCYTES 0.6 % (0.0-5.0); LYMPH% 4.7 % (15-41); MEAN CELL VOLUME 100.3 fL CALC (80.0-100.0); MEAN CORPUSCULAR HGB CONC 31.9 g/dL CAL (32.0-36.0); MONO% 5.7 % (2-13); NEUT# 23.48 thou/uL (1.82-7.42); NEUT% 88.7 % (42-76); RED CELL DISTRI WIDTH 15.2 % (11.5-15.5)
[2024-11-29 21:41] LABS: ALBUMIN 3.1 g/dL (3.2-5.0); BILIRUBIN, TOTAL 1.5 mg/dL (0.2-1.3); CREATININE 2.4 mg/dL (0.7-1.3); POTASSIUM 4.6 mmol/l (3.5-5.1); TOTAL PROTEIN 6.1 g/dL (6.3-8.2)
[2024-11-29] MEDS ORDERED: cefTRIAXone SODIUM 2 GM in SODIUM CHLORIDE 0.9% 100 ML IV ONE (22:50)
[2024-11-29] MEDS ORDERED: AZITHROMYCIN 500 MG in SODIUM CHLORIDE 0.9% 250 ML IV ONE (22:50)
[2024-11-30] VITALS (75 sets, daily range): BP systolic 32–123; BP diastolic 14–94
[2024-11-30 00:35] LABS: URINE BILIRUBIN - DIPSTICK Negative (NEGATIVE); URINE BLOOD DIPSTICK Negative (NEGATIVE); URINE COLOR Yellow; URINE GLUCOSE - DIPSTICK Negative (NEGATIVE); URINE KETONE Negative (NEGATIVE); URINE LEUK ESTERASE Small (NEGATIVE); URINE NITRITE - DIPSTICK Negative (Negative); URINE PH 5.5 (4.5-8.0); URINE PROTEIN - DIPSTICK Negative (NEG-TRACE); URINE UROBILINOGEN - DIPSTICK 0.2 E.U./dL (0.2)
[2024-11-30 00:46] LABS: URINE BACTERIA FEW hpf; URINE HYALINE CAST RARE lpf (NONE-RARE); URINE RBC 0-2 RBC/hpf (0-5); URINE YEAST MODERATE hpf
[2024-11-30] MEDS ORDERED: ELIQUIS5 MG PO (01:47)
[2024-11-30] MEDS ORDERED: BAYER ASPIRIN E81 MG PO (01:48)
[2024-11-30] MEDS ORDERED: SODIUM CHLORIDE 0.9% 1,000 ML IV PRN (02:30)
[2024-11-30] MEDS ORDERED: CEFEPIME HYDROCHLORIDE 1 GM in SODIUM CHLORIDE 0.9% 50 ML IV SCH (06:00)
[2024-11-30] MEDS ORDERED: CLARIFY DOSE IV SCH (06:00)
[2024-11-30] MEDS ORDERED: SODIUM CHLORIDE 0.9% 500 ML IV PRN (06:10)
[2024-11-30] MEDS ORDERED: NOREPINEPHRINE BITARTRATE 4 MG in SODIUM CHLORIDE 0.9% 250 ML IV PRN (07:40)
[2024-11-30] MEDS ORDERED: methylPREDNISolone Sod Succ 40 MG/ML SDV IV SCH (09:00)
[2024-11-30] MEDS ORDERED: DOXYCYCLINE HYCLATE 100 MG in SODIUM CHLORIDE 0.9% 100 ML IV SCH (09:00)
[2024-11-30] MEDS ORDERED: PIPERACILLIN Sodium-Tazobactam 3.375 GM in SODIUM CHLORIDE 0.9% 100 ML IV SCH (12:00)
[2024-11-30] MEDS ORDERED: NOREPINEPHRINE BITARTRATE IV PRN (13:00)
[2024-11-30] MEDS ORDERED: SODIUM CHLORIDE 0.9% IV PRN (13:00)
== END 2024-11-30 16:15 | disposition hospice, inpatient (51) | DRG 871 ==
LOC: ED 19:52 → ED-I 11-30 → ED 11-30 01:09 → MS2 11-30 01:10 → ED-I 11-30 05:50
PROVIDERS: Family Medicine; ADMIT Internal Medicine; ATTEND Internal Medicine
PROC: 3E033XZ Introduction of Vasopressor into Peripheral Vein, Percutaneous Approach (ICD-10-PCS; principal; 2024-11-30)
DX: A41.9 Sepsis, unspecified organism (principal); G93.41 Metabolic encephalopathy; J69.0 Pneumonitis due to inhalation of food and vomit; R65.21 Severe sepsis with septic shock; J96.01 Acute respiratory failure with hypoxia; I13.0 Hypertensive heart and chronic kidney disease with heart failure and stage 1 through stage 4 chronic kidney disease, or unspecified chronic kidney disease; I43 Cardiomyopathy in diseases classified elsewhere; N17.9 Acute kidney failure, unspecified; I95.9 Hypotension, unspecified; I50.9 Heart failure, unspecified; E11.22 Type 2 diabetes mellitus with diabetic chronic kidney disease; N18.30 Chronic kidney disease, stage 3 unspecified; F03.90 Unspecified dementia, unspecified severity, without behavioral disturbance, psychotic disturbance, mood disturbance, and anxiety; I48.91 Unspecified atrial fibrillation; I25.10 Atherosclerotic heart disease of native coronary artery without angina pectoris; E78.5 Hyperlipidemia, unspecified; G40.909 Epilepsy, unspecified, not intractable, without status epilepticus; R62.7 Adult failure to thrive; Z79.4 Long term (current) use of insulin; Z79.84 Long term (current) use of oral hypoglycemic drugs; Z86.73 Personal history of transient ischemic attack (TIA), and cerebral infarction without residual deficits; Z99.3 Dependence on wheelchair; Z86.16 Personal history of COVID-19; Z99.81 Dependence on supplemental oxygen; Z95.5 Presence of coronary angioplasty implant and graft; Z95.0 Presence of cardiac pacemaker; Z66 Do not resuscitate; Z51.5 Encounter for palliative care
CPT/HCPCS: J0456; J0692; J0696; J2543